=== PATIENT | male | born 1995 | race Caucasian/White ===

== ENCOUNTER 2019-11-22 21:37 | Emergency (ER) | payer BC, SELFPAY ==
--- NOTE | ~2019-11-22 | XR_ITS ---
EXAMINATION: XR chest 2V DATE: 11/22/2019 22:58 INDICATION: Cough and wheezing TECHNIQUE: PA and lateral views of the chest are obtained. COMPARISON: None available FINDINGS: The lungs are free of acute opacities. There is no pleural effusion or pneumothorax. The ca rdiomediastinal silhouette is normal. The visualized bones and soft tissues are unremarkable. IMPRESSION: 1. No acute cardiopulmonary abnormality. Reviewed, dictated and finalized at location A. [facility] SPECIAL[facility]
[2019-11-22 21:39] VITALS: BP 120/79; PULSE 97; RESP 16; TEMP 37; O2SAT 96
--- NOTE | 2019-11-22 22:05 | ED.URI ---
HPI - URI/Sore Throat General Chief Complaint: Upper Respiratory Infection Stated Complaint: wheezing/flu sx Time Seen by Provider: 11/22/19 21:51 Source: patient and RN notes reviewed Mode of arrival: other Limitations: no limitations History of Present Illness HPI Narrative: Pt is a 24 y/o male who presents to the ED with c/o wheezing for the past week. Pt denies getting the flu shot this year. Pt has a social hx of smoking cigarettes and Marijuana, but he denies using a vape. Pt also reports cough, congestion, a resolved fever, and a poor appetite, but denies otalgia and a sore throat. MD elicited complaint: other (wheezing) Onset (ago): week(s) (1) Consistency: constant Able to tolerate fluids by mouth: Yes Associated symptoms: fever (resolved), cough and other (congestion, poor appetite) Related Data Home Medications Medication Instructions Recorded Confirmed amoxicillin 11/22/19 Allergies Allergy/AdvReac Type Severity Reaction Status Date / Time No Known Allergies Allergy Unknown Verified 04/04/17 20:39 Review of Systems Review of Systems: Narrative: CONSTITUTIONAL: Reports a resolved fever and a poor appetite. ENT: Reports congestion. Denies otalgia and a sore throat. RESPIRATORY: Reports wheezing and a cough. All systems reviewed & are unremarkable except as noted in HPI and below PMFSH Past Medical History Medical History (Updated 11/22/19 @ 23:20 by Desire Norton MD) History of ETOH abuse Surgical History Surgical History (Updated 11/22/19 @ 22:12 by Perla Adkins) No history of previous surgery Social History Social History (Updated 11/22/19 @ 22:21 by Perla Adkins) Smoking status: Current every day smoker Tobacco type: cigarettes Substance use: current Substance use type: marijuana Gender identity (if verbalized by the patient): Male Exam Narrative: Exam Narrative: GENERAL: Well-appearing, well-nourished, and in no acute distress. HEAD: Normocephalic, atraumatic. EYES: PERRLA and EOMI. ENT: Nares clear, no rhinorrhea or epistaxis. Mucous membranes moist. NECK: Supple. CHEST: No respiratory distress. Focal crackles on right lower lobe. Expiratory wheezing throughout. HEART: Regular rate and rhythm. No murmur heard. Normal peripheral pulses. ABDOMEN: Soft, nontender, nondistended, normal active bowel sounds. EXTREMITIES: Normal range of motion. No edema. SKIN: Warm, dry, no rash. NEURO: No focal deficits. Alert and oriented X3. Course Course Emergency Course: Patient presented for evaluation of cough. No fever at this facility. Stable vital signs, no respiratory distress. Patient does have some wheezing for which we will give the patient a DuoNeb treatment. No findings of focal consolidation on chest x-ray. Findings most consistent with wheezing associated viral upper respiratory infection. Given wheezing associated component, will prescribe azithromycin to help with lung inflammation, also be discharged home with Symbicort, steroid taper. Vital Signs Vital signs: Vital Signs Temperature 37.0 C 11/22/19 21:39 Pulse Rate 97 11/22/19 21:39 Respiratory Rate 16 11/22/19 21:39 Blood Pressure 120/79 11/22/19 21:39 Pulse Oximetry 96 11/22/19 21:39 Temperature 37.0 C 11/22/19 21:39 Pulse Rate 70 11/22/19 22:44 Respiratory Rate 16 11/22/19 22:44 Blood Pressure 120/79 11/22/19 21:39 Pulse Oximetry 96 11/22/19 21:39 MDM - URI/Sore Throat Lab Data Result diagrams: 11/22/19 22:32 11/22/19 22:32 Labs: Lab Results 11/22/19 11/22/19 Range/Units 22:32 22:32 WBC 11.7 H (4.5-10.0) K/mm3 RBC 5.18 (4.6-6.20) M/mm3 Hgb 15.1 (14.0-18.0) g/dL Hct 44.9 (42.0-52.0) % MCV 86.7 (80-100) fl MCH 29.2 (26-34) pg MCHC 33.6 (32-36) g/dl RDW 12.8 (11.5-14.5) % Plt Count 287 (150-375) k/mm3 MPV 9.8 (7.4-10.4) fl Immature Gran % (Auto) 0.3 (0-0.5) % Neut % (Auto)
[2019-11-22] MEDS: ACETAMINOPHEN 500 MG TABLET 1000 MG PO (22:24)
[2019-11-22] MEDS: predniSONE 20 MG TABLET 60 MG PO (22:33)
[2019-11-22] MEDS: ALBUTEROL SULFATE NEB 2.5 MG/0.5 ML INH 5 MG INHALATION (22:38)
[2019-11-22 22:39] VITALS: PULSE 70; RESP 16
[2019-11-22] MEDS: IPRATROPIUM BR 0.02% INH SOLN 0.5 MG/2.5 ML VIAL INHALATION (22:39)
[2019-11-22 22:40] LABS: Basophils Absolute Auto 0.1 K/mm3 (0.0-0.1); Basophils Percent Auto 0.6 % (0.2-1.2); Eosinophils Absolute Auto 0.3 K/mm3 (0-0.3); Eosinophils Percent Auto 2.7 % (0-4.4); Hematocrit 44.9 % (42.0-52.0); Hemoglobin 15.1 g/dL (14.0-18.0); Immature Granulocyte Absolute 0.04 K/mm3 (0.00-0.031); Immature Granulocyte Percent A 0.3 % (0-0.5); Lymphocytes Absolute Auto 2.84 K/mm3 (0.9-3.2); Lymphocytes Percent Auto 24.2 % (18.3-44.2); Mean Corpuscular HGB Conc 33.6 g/dl (32-36); Mean Corpuscular Hemoglobin 29.2 pg (26-34); Mean Corpuscular Volume 86.7 fl (80-100); Mean Platelet Volume 9.8 fl (7.4-10.4); Monocytes Absolute Auto 0.8 K/mm3 (0.1-0.6); Monocytes Percent Auto 6.5 % (2.6-8.5); Neutrophils Absolute Auto 7.7 K/mm3 (1.3-6.7); Neutrophils Percent Auto 65.7 % (45.5-73.1); Platelet Count Result 287 k/mm3 (150-375); Red Blood Count 5.18 M/mm3 (4.6-6.20); Red Cell Distribution Width 12.8 % (11.5-14.5); White Blood Count 11.7 K/mm3 (4.5-10.0)
[2019-11-22 22:44] VITALS: PULSE 70; RESP 16
[2019-11-22 22:56] LABS: Blood Urea Nitrogen 15 mg/dL (9-20); Calcium 9.9 mg/dL (8.4-10.2); Carbon Dioxide 29 mmol/L (22-30); Chloride 98 mmol/L (98-107); Estimated Glomerular Filt Rate > 60; Glucose 106 mg/dL (75-110); Potassium 4.1 mmol/L (3.4-5.0); Sodium 141 mmol/L (137-145)
== END 2019-11-22 23:35 | disposition home or self-care (01) ==
PROVIDERS: Emergency Provider Emergency Medicine
DX: J06.9 Acute upper respiratory infection, unspecified (principal)
CPT/HCPCS: 36415; 71046; 80048; 85025; 87804; 94640; 99283; A9270; J7512

== ENCOUNTER 2021-07-11 10:14 | Emergency (ER) | payer BC, SELFPAY ==
[2021-07-11 10:15] VITALS: BP 125/76; PULSE 84; RESP 18; TEMP 36.4; O2SAT 99
--- NOTE | 2021-07-11 10:27 | ED.DENTAL ---
HPI - Dental/Oral General Chief complaint: Dental/Oral Stated complaint: Tooth Pain Time Seen by Provider: 07/11/21 10:28 Source: patient, family, RN notes reviewed and old records reviewed Mode of arrival: ambulatory Limitations: no limitations History of Present Illness HPI Narrative: 26-year-old male presents to [facility] with complaints of acute dental pain to left upper mouth for the past 2 days and he awoke today with left sided facial swelling. Patient states that he has dental appointment set up for July 16 with his dentist. Patient has noted swelling and redness to gum around # 15 tooth with noted dental caries. Patient denies any difficulty with swallowing or breathing no trismus noted.Patient states that he has had some nausea this morning, denies any vomiting or diarrhea or any fevers. Patient has had COVID vaccinations. MD Complaint: tooth pain Location: Tooth # (15) Onset (ago): day(s) (2) Related Data Allergies Allergy/AdvReac Type Severity Reaction Status Date / Time No Known Allergies Allergy Unknown Verified 07/11/21 10:18 Review of Systems Review of Systems: CONSTITUTIONAL: Denies fever, chills, or sweats. EYES: Denies visual changes, redness, or discharge. ENT: Denies rhinorrhea, congestion, sore throat, or otalgia.dental pain to left upper molar with left sided facial swelling CARDIOVASCULAR: Denies chest pain, palpitations, or edema. RESPIRATORY: Denies cough or dyspnea. GASTROINTESTINAL: Denies abdominal pain,reports some nausea, no vomiting, or diarrhea. GENITOURINARY: Denies dysuria or hematuria. SKIN: Denies rash or itching. MUSCULOSKELETAL: Denies back pain, joint pain, or myalgia. NEUROLOGIC: Denies headache, numbness, or weakness. PSYCHIATRIC: Denies anxiety or depression. All systems reviewed & are unremarkable except as noted in HPI and below PMFSH Past Medical History Medical History (Updated 07/11/21 @ 10:59 by Desire Jauregui NP) History of ETOH abuse Surgical History Surgical History (Updated 07/11/21 @ 10:59 by Desire Jauregui NP) Hx of appendectomy Family History Family History (Updated 07/11/21 @ 10:59 by Desire Jauregui NP) Other No significant family history Social History Social History (Updated 07/11/21 @ 11:00 by Desire Jauregui NP) Smoking packs per day: 0.5 Smoking cigarettes per day: 10.0 Years smoked: 9 Smoking pack-years: 4.50 Smoking status: Current every day smoker Tobacco type: cigarettes Alcohol intake: current Alcohol use details: social Substance use: former Substance use type: marijuana Living arrangements: with family Gender identity (if verbalized by the patient): Male Comments At time of signature, agree with nursing past medical, surgical, social and family history. There is no relevant family history pertinent to the presenting complaint Exam Narrative: GENERAL: Well-appearing, well-nourished, and in no acute distress. HEAD: Normocephalic, atraumatic. EYES: PERRLA and EOMI. ENT: Nares clear, no rhinorrhea or epistaxis. Mucous membranes moist.TM's normal with good light reflex, throat pink with no exudates or lesions or tonsil enlargement. left upper gum red and swollen around #15 tooth with noted caries with left sided facial swelling present,No Yoseph angina noted. NECK: Supple.no lymphadenopathy CHEST: Clear to auscultation. No respiratory distress.SAO2 99% on room air HEART: Regular rate and rhythm. No murmur heard. Normal peripheral pulses. ABDOMEN: Soft, nontender, nondistended, normal active bowel sounds. EXTREMITIES: Normal range of motion. No edema. SKIN: Warm, dry, no rash. NEURO: No focal deficits. Alert and oriented x3. Course Vital Signs Vital signs: Vital Signs Temperature 36.4 C L 07/11/21 10:15 Pulse Rate 84 07/11/21 10:15 Respiratory Rate 18 07/11/21 10:15 Blood Pressure 125/76 07/11/21 10:15 Pulse Oximetry 99 07/11/21 10:15 Temperature 36.4 C L
== END 2021-07-11 10:46 | disposition home or self-care (01) ==
PROVIDERS: Emergency Provider Registered Nurse
DX: K04.7 Periapical abscess without sinus (principal); F17.210 Nicotine dependence, cigarettes, uncomplicated
CPT/HCPCS: 99213; G0463

== ENCOUNTER 2021-08-17 09:08 | Emergency (ER) | payer BC, SELFPAY ==
--- NOTE | ~2021-08-17 | XR_ITS ---
EXAMINATION: XR thoracic spine 3V DATE: 08/17/2021 09:41 INDICATION: Upper thoracic back pain TECHNIQUE: One AP, lateral and lateral swimmer's views of the thoracic spine were obtained. COMPARISON: None. FINDINGS: Alignment is normal. Chronic minimal likely physiologic anterior wedging at T11 and T12. A few small Schmorl's nodes in the lower thoracic spine. Mild disc height loss at T7-T8 through T9-T10 and at T11 -T12. No acute fractures identified. Visualized portions of the lungs are clear with no evident pleur al effusion or pneumothorax. Cardiomediastinal silhouette is normal. IMPRESSION: 1. Mild lower thoracic spondylosis. No evident acute osseous abnormality. Reviewed, dictated and finalized at location A.
[2021-08-17 09:16] VITALS: BP 132/90; PULSE 109; RESP 18; TEMP 36.6; O2SAT 97
[2021-08-17] MEDS: KETOROLAC (*BKC) 60 MG/2 ML VIAL IM (09:53)
--- NOTE | 2021-08-17 11:42 | ED.BACK ---
HPI - Back Pain/Injury General Chief Complaint: Back Pain/Injury Stated Complaint: back pain Time Seen by Provider: 08/17/21 09:12 History of Present Illness HPI Narrative: Patient is a 26-year-old male who presents ER with back pain. Right side between the scapula and thoracic spine. Worse with range of motion of the shoulder. 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 No known trauma. No upper or lower extremity numbness or tingling. No difficulty with urination/defecation. No fevers or chills or sweats. No IV drug abuse. Related Data Allergies Allergy/AdvReac Type Severity Reaction Status Date / Time No Known Allergies Allergy Unknown Verified 08/17/21 09:19 Review of Systems Review of Systems: All systems reviewed & are unremarkable except as noted in HPI and below Constitutional: Constitutional: Denies chills, Denies fever(s) and Denies weakness Cardiovascular: Cardiovascular: Denies chest pain, Denies rapid heart rate and Denies radiating jaw, neck or arm pain Respiratory: Respiratory: Denies cough and Denies dyspnea Gastrointestinal: Gastrointestinal: Denies nausea and Denies vomiting Musculoskeletal: Musculoskeletal: Reports back pain and Denies muscle cramps Integumentary/Breasts: Skin/Breast: Denies pruritus and Denies erythema Neurologic: Denies focal weakness and Denies numbness PMFSH Past Medical History Medical History (Updated 08/17/21 @ 12:12 by Darin Wilde MD) History of ETOH abuse Surgical History Surgical History (Updated 07/11/21 @ 10:59 by Desire Jauregui NP) Hx of appendectomy Family History Family History (Updated 07/11/21 @ 10:59 by Desire Jauregui NP) Other No significant family history Social History Social History (Updated 07/11/21 @ 11:00 by Desire Jauregui NP) Smoking packs per day: 0.5 Smoking cigarettes per day: 10.0 Years smoked: 9 Smoking pack-years: 4.50 Smoking status: Current every day smoker Tobacco type: cigarettes Alcohol intake: current Alcohol use details: social Substance use: former Substance use type: marijuana Gender identity (if verbalized by the patient): Male Exam Narrative: GENERAL: Well-appearing, well-nourished, and in no acute distress. HEAD: Normocephalic, atraumatic. CHEST: Clear to auscultation. No respiratory distress. HEART: Regular rate and rhythm. Normal peripheral pulses. Back: No midline tenderness thoracic spine or L-spine however there is tenderness right of midline at the level of T2. EXTREMITIES: Normal range of motion. No edema. SKIN: Warm, dry, no rash. NEURO: Alert and oriented x3. PSYCH: Normal mood and affect. Course Course Emergency Course: Symptoms markedly improved with Toradol. Requesting work note. Discharge home. Vital Signs Vital signs: Vital Signs Temperature 97.8 F 08/17/21 09:16 Pulse Rate 109 H 08/17/21 09:16 Respiratory Rate 18 08/17/21 09:16 Blood Pressure 132/90 08/17/21 09:16 Pulse Oximetry 97 08/17/21 09:16 Temperature 97.8 F 08/17/21 09:16 Pulse Rate 74 08/17/21 11:45 Respiratory Rate 18 08/17/21 11:45 Blood Pressure 94/54 L 08/17/21 11:45 Pulse Oximetry 98 08/17/21 11:45 MDM - Back Pain/Injury Imaging Data Radiologist's impression: ITS Impressions Thoracic Spine X-Ray 08/17/21 09:47 IMPRESSION: 1. Mild lower thoracic spondylosis. No evident acute osseous abnormality. Discharge Plan Discharge Clinical Impression: Strain of thoracic region Patient Disposition: Home, Self-Care Condition: Stable Instructions: Thoracic Back Strain (ED) Additional Instructions: Return to the ER if you have increased pain in your back, you develop lower extremity weakness/numbness/paralysis, you have numbness or tingling in your private parts, or you are unable to control your ability to urinate/stool. Prescriptions: New naproxen 375 mg tablet 375 mg PO BID Qty: 14 RF: 0 No Action
[2021-08-17 11:45] VITALS: BP 94/54; PULSE 74; RESP 18; O2SAT 98
[2021-08-17 12:29] VITALS: BP 99/66; PULSE 57; RESP 18; TEMP 36.5; O2SAT 98
== END 2021-08-17 12:32 | disposition home or self-care (01) ==
PROVIDERS: Emergency Provider Emergency Medicine
DX: S29.012A Strain of muscle and tendon of back wall of thorax, initial encounter (principal); F17.210 Nicotine dependence, cigarettes, uncomplicated; X50.0XXA Overexertion from strenuous movement or load, initial encounter
CPT/HCPCS: 72072; 96372; 99283; J1885

== ENCOUNTER 2021-09-03 08:07 | Emergency (ER) | payer BC, SELFPAY ==
[2021-09-03 08:11] VITALS: BP 123/105; PULSE 116; RESP 18; O2SAT 99
--- NOTE | 2021-09-03 08:41 | ED.EXTPRO ---
HPI - Extremity Problem General Chief complaint: Extremity Problem,Nontraumatic Stated complaint: numbness in right hand Time Seen by Provider: 09/03/21 08:17 Source: patient Mode of arrival: ambulatory Limitations: no limitations History of Present Illness HPI Narrative: Patient is a 26-year-old male complaining of right risk and hand numbness when he wakes up in the morning and usually resolves on its own after 1 or 2 hours, started approximately 3 months ago. Patient was told that he could have carpal tunnel. 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 Patient also requesting a work excuse today. Denies any injury to his upper extremity. Related Data Allergies Allergy/AdvReac Type Severity Reaction Status Date / Time No Known Allergies Allergy Unknown Verified 08/17/21 09:19 Review of Systems Review of Systems: All systems reviewed & are unremarkable except as noted in HPI and below Constitutional: Constitutional: Reports as per HPI PMFSH Past Medical History Medical History History of ETOH abuse Surgical History Surgical History Hx of appendectomy Family History Family History Other No significant family history Social History Social History Smoking packs per day: 0.5 Smoking cigarettes per day: 10.0 Years smoked: 9 Smoking pack-years: 4.50 Smoking status: Current every day smoker Tobacco type: cigarettes Alcohol intake: current Alcohol use details: social Substance use: former Substance use type: marijuana Gender identity (if verbalized by the patient): Male Exam Const: General: no acute distress and alert Orientation/consciousness: patient oriented x3 HENMT: Head: normal to inspection Eyes: Conjunctivae: conjunctivae normal Neck: Neck: normal visual inspection Resp: Effort & Inspection: normal respiratory effort Skin: General skin exam: normal color Rashes: no rashes Neuro: General: patient oriented x3 and moves all extremities Extrem: General: normal to inspection and no clubbing, cyanosis or edema Other: No deformity or swelling. No redness. Full range of motion of his right wrist and hand, no pain. No pain on palpation. Neurovascular is intact Course Vital Signs Vital signs: Vital Signs Pulse Rate 116 H 09/03/21 08:11 Respiratory Rate 18 09/03/21 08:11 Blood Pressure 123/105 H 09/03/21 08:11 Pulse Oximetry 99 09/03/21 08:11 Pulse Rate 116 H 09/03/21 08:11 Respiratory Rate 18 09/03/21 08:11 Blood Pressure 123/105 H 09/03/21 08:11 Pulse Oximetry 99 09/03/21 08:11 Discharge Plan Discharge Clinical Impression: Carpal tunnel syndrome of right wrist Patient Disposition: Home, Self-Care Condition: Stable Instructions: Wrist Sprain (ED) Prescriptions: New methylprednisolone [Medrol (Baldemar)] 4 mg tablets,dose pack See Rx Instructions .ROUTE .COMPLEX Qty: 21 RF: 0 No Action penicillin V potassium 500 mg tablet 500 mg PO Q12H 10 Days Qty: 20 RF: 0 lidocaine HCl [Lidocaine Viscous] 2 % solution 1 applic mucous membrane QID PRN (Reason: pain) Qty: 100 RF: 0 naproxen 375 mg tablet 375 mg PO BID Qty: 14 RF: 0 Follow-up/Referrals: PHYSICIAN,FOOD SERVICE COUNTER CLERK [Primary Care Provider] - 09/04/21 Time of Disposition: 08:46
== END 2021-09-03 09:38 | disposition home or self-care (01) ==
PROVIDERS: Emergency Provider Emergency Medicine
DX: G56.01 Carpal tunnel syndrome, right upper limb (principal); F17.210 Nicotine dependence, cigarettes, uncomplicated
CPT/HCPCS: 99283

== ENCOUNTER 2021-10-09 08:04 | Emergency (ER) | payer BC, SELFPAY ==
[2021-10-09 08:18] VITALS: BP 152/76; PULSE 83; RESP 14; TEMP 36.6; O2SAT 99
[2021-10-09 09:43] VITALS: BP 137/92; PULSE 74; RESP 18; TEMP 36.8; O2SAT 100
[2021-10-09 09:45] VITALS: RESP 18
--- NOTE | 2021-10-09 10:03 | ED.GENADULT ---
HPI - General Adult General Chief complaint: Unspecified Stated complaint: coughing after exposure to cleaning products Time Seen by Provider: 10/09/21 09:50 Source: patient Mode of arrival: ambulatory Limitations: no limitations History of Present Illness HPI narrative: Patient is 26 years old white male came to the emergency room because of vomiting and chest tightness started the night before last after cleaning his house with Clorox. Patient reports that he been vomiting intermittently yesterday and he could not go back to work, woke up this morning and still nauseated but feeling much better compared to yesterday and would like to have the next few off work yesterday and today. Patient declined any blood work-up or IV fluid at this time. Patient is fully vaccinated for COVID-19. Patient patient girlfriend who was cleaning with him had similar symptoms and got better in few hours. Currently patient denying any fever, chills, vomiting, chest pain, shortness of breath or headache Related Data Allergies Allergy/AdvReac Type Severity Reaction Status Date / Time No Known Allergies Allergy Unknown Verified 10/09/21 09:49 Review of Systems Review of Systems: CONSTITUTIONAL: Denies fever, chills, or sweats. EYES: Denies visual changes, redness, or discharge. ENT: Denies rhinorrhea, congestion, sore throat, or otalgia. CARDIOVASCULAR: Denies chest pain, palpitations, or edema. RESPIRATORY: Denies cough or dyspnea. GASTROINTESTINAL: Denies abdominal pain, nausea, vomiting, or diarrhea. GENITOURINARY: Denies dysuria or hematuria. SKIN: Denies rash or itching. MUSCULOSKELETAL: Denies back pain, joint pain, or myalgia. NEUROLOGIC: Denies headache, numbness, or weakness. PSYCHIATRIC: Denies anxiety or depression. [facility] Past Medical History Medical History History of ETOH abuse Surgical History Surgical History Hx of appendectomy Family History Family History Other No significant family history Social History Social History Smoking packs per day: 0.5 Smoking cigarettes per day: 10.0 Years smoked: 9 Smoking pack-years: 4.50 Smoking status: Current every day smoker Tobacco type: cigarettes Alcohol intake: current Alcohol use details: social Substance use: former Substance use type: marijuana Gender identity (if verbalized by the patient): Male Exam Narrative: General appearance: Well-developed, well-nourished Skin: Normal color Head: Normocephalic, nontraumatic Eyes: Clear conjunctiva ENT: Oropharynx normal, ears normal, nose normal Neck: Supple, nontender Chest and respiratory: Airway patent, no respiratory distress, no accessory muscle use Heart: Regular rate/rhythm Abdomen: Soft, nontender, no organomegaly, quiet bowel sounds Vascular: Normal peripheral pulses, normal capillary refill. 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
== END 2021-10-09 10:30 | disposition home or self-care (01) ==
PROVIDERS: Emergency Provider Emergency Medicine
DX: Z77.098 Contact with and (suspected) exposure to other hazardous, chiefly nonmedicinal, chemicals (principal); F17.210 Nicotine dependence, cigarettes, uncomplicated; Z90.89 Acquired absence of other organs
CPT/HCPCS: 99283

== ENCOUNTER 2022-03-22 21:21 | Emergency (ER) | payer BC, SELFPAY ==
[2022-03-22 21:24] VITALS: BP 125/80; PULSE 58; RESP 20; TEMP 36.4; O2SAT 99
--- NOTE | 2022-03-22 21:51 | ED.GENADULT ---
HPI - General Adult General Chief complaint: Unspecified Stated complaint: runny nose, diarrhea, vomit, aches Time Seen by Provider: 03/22/22 21:51 History of Present Illness HPI narrative: 26-year-old male presents to the emergency room requesting a doctor's note. Patient states yesterday he had a runny nose, postnasal drip, sinus congestion, and posttussive emesis x2. Currently, patient denies shortness of breath, difficulty breathing, or chest pain. Patient denies fever patient states that he feels better today and is just wanting physician note so he can go back to work. No complaints at this time. Related Data Home Medications Medication Instructions Recorded Confirmed No Home Medications 03/22/22 03/22/22 Allergies Allergy/AdvReac Type Severity Reaction Status Date / Time No Known Allergies Allergy Unknown Verified 03/22/22 21:27 Review of Systems Review of Systems: CONSTITUTIONAL: Denies fever, chills, or sweats. EYES: Denies visual changes, redness, or discharge. ENT: Reports rhinorrhea, congestion CARDIOVASCULAR: Denies chest pain, palpitations, or edema. RESPIRATORY: Reports cough GASTROINTESTINAL: Denies abdominal pain, nausea, vomiting, or diarrhea. GENITOURINARY: Denies dysuria or hematuria. SKIN: Denies rash or itching. MUSCULOSKELETAL: Denies back pain, joint pain, or myalgia. NEUROLOGIC: Denies headache, numbness, dizziness, or weakness. PSYCHIATRIC: Denies anxiety or depression. [facility] Past Medical History Medical History History of ETOH abuse Surgical History Surgical History Hx of appendectomy Family History Family History Other No significant family history Social History Social History Smoking packs per day: 0.5 Smoking cigarettes per day: 10.0 Years smoked: 9 Smoking pack-years: 4.50 Smoking status: Current every day smoker Tobacco type: cigarettes Alcohol intake: current Alcohol use details: social Substance use: former Substance use type: marijuana Gender identity (if verbalized by the patient): Male Exam Narrative: GENERAL: Well-appearing, well-nourished, and in no acute distress. HEAD: Normocephalic, atraumatic. EYES: PERRLA and EOMI. ENT: Nares clear, no rhinorrhea or epistaxis. Mucous membranes moist. Oropharynx without tonsillar hypertrophy exudate or other lesions. Bilateral TMs pearly [place]on nonbulging NECK: Supple. No adenopathy or masses. CHEST: Clear to auscultation. No respiratory distress. No wheezes rales or rhonchi HEART: Regular rate and rhythm. No murmur heard. Normal peripheral pulses. ABDOMEN: Soft, nontender, nondistended, normal active bowel sounds. EXTREMITIES: Normal range of motion. No edema. SKIN: Warm, dry, no rash. NEURO: No focal deficits. Alert and oriented x3. PSYCH: Normal mood and affect. Course Vital Signs Vital signs: Vital Signs Temperature 36.4 C 03/22/22 21:24 Pulse Rate 58 L 03/22/22 21:24 Respiratory Rate 20 03/22/22 21:24 Blood Pressure 125/80 03/22/22 21:24 Pulse Oximetry 99 03/22/22 21:24 Oxygen Delivery Room Air 03/22/22 21:24 Temperature 36.4 C 03/22/22 21:24 Pulse Rate 58 L 03/22/22 21:24 Respiratory Rate 20 03/22/22 21:24 Blood Pressure 125/80 03/22/22 21:24 Pulse Oximetry 99 03/22/22 21:24 Oxygen Delivery Room Air 03/22/22 21:24 Medical Decision Making Vital Signs Vital Signs: Vital Signs Temperature 36.4 C 03/22/22 21:24 Pulse Rate 58 L 03/22/22 21:24 Respiratory Rate 20 03/22/22 21:24 Blood Pressure 125/80 03/22/22 21:24 Pulse Oximetry 99 03/22/22 21:24 Oxygen Delivery Room Air 03/22/22 21:24 Temperature 36.4 C 03/22/22 21:24 Pulse Rate 58 L 03/22/22 21:24 Respiratory Rate 20 03/22/22
== END 2022-03-22 22:13 | disposition home or self-care (01) ==
PROVIDERS: Emergency Provider Nurse Practitioner Family
DX: R05.9 Cough, unspecified (principal); F17.210 Nicotine dependence, cigarettes, uncomplicated
CPT/HCPCS: 99281

== ENCOUNTER 2022-10-08 20:56 | Emergency (ER) | payer SELFPAY ==
--- NOTE | ~2022-10-08 | XR_ITS ---
EXAMINATION: XR chest 2V Exam Date/Time: 10/08/2022 22:38 WAY INSPECTOR HISTORY: productive cough, chest congestion x 2days. no cardiac hx Comparison: 11/22/2019. RESULT: Lines, tubes, and devices: None. Lungs and pleura: Clear. Cardiomediastinal silhouette: Stable. Other: No acute osseous or upper abdominal finding. IMPRESSION: No acute cardiopulmonary process. Reviewed, dictated and finalized at location K. INSPECTOR
[2022-10-08 20:57] VITALS: BP 114/77; PULSE 68; RESP 20; TEMP 36.5; O2SAT 98
[2022-10-08 21:41] LABS: Strep Group A RT-PCR NOT DETECTED (Negative)
[2022-10-08 22:18] LABS: Influenza A QL RT-PCR Negative (Negative); Influenza B QL RT-PCR Negative (Negative); SARS-CoV-2 RNA PCR Negative
--- NOTE | 2022-10-08 22:48 | PC.NURSE ---
Pt to XRAY via w/c at this time.
--- NOTE | 2022-10-08 22:58 | ED.URI ---
HPI - URI/Sore Throat General Chief Complaint: Upper Respiratory Infection Stated Complaint: sore throat, cough Time Seen by Provider: 10/08/22 21:36 Source: patient Mode of arrival: ambulatory Limitations: no limitations History of Present Illness HPI Narrative: This is a 27-year-old male that presents emergency department for cold symptoms ongoing over the last 2 days. Reports fever, cough, congestion and sore throat. Denies shortness of breath. Related Data Home Medications Medication Instructions Recorded Confirmed No Home Medications 03/22/22 03/22/22 Allergies Allergy/AdvReac Type Severity Reaction Status Date / Time No Known Allergies Allergy Unknown Verified 10/08/22 21:32 Review of Systems Review of Systems: CONSTITUTIONAL: Reports fever EYES: Denies redness, or discharge. ENT: Reports rhinorrhea, congestion, sore throat RESPIRATORY: Reports cough. Denies dyspnea. All systems reviewed & are unremarkable except as noted in HPI and below PMFSH Past Medical History Medical History History of ETOH abuse Surgical History Surgical History Hx of appendectomy Family History Family History Other No significant family history Social History Social History Smoking packs per day: 0.5 Smoking cigarettes per day: 10.0 Years smoked: 9 Smoking pack-years: 4.50 Smoking status: Current every day smoker Tobacco type: cigarettes Alcohol intake: current Alcohol use details: social Substance use: former Substance use type: marijuana Gender identity (if verbalized by the patient): Male Exam Narrative: GENERAL: Well-appearing, well-nourished, and in no acute distress. HEAD: Normocephalic, atraumatic. EYES: EOMI. ENT: Nares clear, no rhinorrhea or epistaxis. Mucous membranes moist. Oropharynx without tonsillar hypertrophy exudate or other lesions. Bilateral TMs pearly [place]on non-bulging NECK: Supple. No adenopathy or masses. CHEST: Clear to auscultation. No respiratory distress. No wheezes rales or rhonchi HEART: Regular rate and rhythm. No murmur heard. Normal peripheral pulses. EXTREMITIES: Normal range of motion. No edema. SKIN: Warm, dry, no rash. NEURO: No focal deficits. Alert and oriented x3. PSYCH: Normal mood and affect Course Vital Signs Vital signs: Vital Signs Temperature 97.7 F 10/08/22 20:57 Pulse Rate 68 10/08/22 20:57 Respiratory Rate 20 10/08/22 20:57 Blood Pressure 114/77 10/08/22 20:57 Pulse Oximetry 98 10/08/22 20:57 Oxygen Delivery Room Air 10/08/22 20:57 Temperature 97.7 F 10/08/22 20:57 Pulse Rate 68 10/08/22 20:57 Respiratory Rate 20 10/08/22 20:57 Blood Pressure 114/77 10/08/22 20:57 Pulse Oximetry 98 10/08/22 20:57 Oxygen Delivery Room Air 10/08/22 20:57 MDM - URI/Sore Throat MDM Narrative Medical decision making narrative: Patient presents emergency department for cold symptoms ongoing over the last 2 days. Patient is afebrile and nontoxic-appearing. Lungs are clear on exam. Oxygen saturation is normal on room air. Influenza, COVID and strep screens are negative. Chest x-ray without acute cardiopulmonary abnormality. Patient was updated on case findings. Instructed on continued care of viral infection. He is to follow-up with primary care provider. He was given warnings to return to the ER Lab Data Attestation: I reviewed the patient's lab results. Labs: Lab Results 10/08/22 10/08/22 Range/Units 21:04 21:04 Influenza A (RT-PCR) Negative (Negative) Influenza B (RT-PCR) Negative (Negative) SARS-CoV-2 RNA (RT-PCR) Negative Group A Strep (PCR) Not detected (Negative) Imaging Data Radiologist's impression: ITS Impressions Chest X-Ray 09/13
[2022-10-08 23:15] VITALS: BP 110/74; PULSE 66; RESP 18; TEMP 36.7; O2SAT 99
== END 2022-10-08 23:17 | disposition home or self-care (01) ==
PROVIDERS: Emergency Medicine; Emergency Provider Physician Assistant
DX: J06.9 Acute upper respiratory infection, unspecified (principal); Z20.822 Contact with and (suspected) exposure to COVID-19; F17.210 Nicotine dependence, cigarettes, uncomplicated
CPT/HCPCS: 71046; 87636; 87651; 99283

== ENCOUNTER 2023-02-21 10:16 | Emergency (ER) | payer MEDICAID, SELFPAY ==
[2023-02-21 11:12] VITALS: BP 108/75; PULSE 57; RESP 14; TEMP 36.4; O2SAT 98
--- NOTE | 2023-02-21 12:04 | ED.DENTAL ---
HPI - Dental/Oral General Chief complaint: Dental/Oral Stated complaint: dental pain Time Seen by Provider: 02/21/23 11:18 Source: patient Mode of arrival: ambulatory Limitations: no limitations History of Present Illness HPI Narrative: This is a 19-year-old male who presents to the ED with chief complaint of with right lower tooth pain x3 days. States he has a dentist appointment next week. Patient states he is clean from opioids for the past 2 days and would like to avoid these medications. He denies fevers, chills, nausea, vomiting, diarrhea. Related Data Allergies Allergy/AdvReac Type Severity Reaction Status Date / Time No Known Allergies Allergy Unknown Verified 02/21/23 11:21 Review of Systems Review of Systems: CONSTITUTIONAL: Denies fever, chills, or sweats. ENT: See HPI SKIN: Denies rash or itching. NEUROLOGIC: Denies headache, numbness, dizziness, or weakness. PMFSH Past Medical History Medical History History of ETOH abuse Surgical History Surgical History Hx of appendectomy Family History Family History Other No significant family history Social History Social History Smoking packs per day: 0.5 Smoking cigarettes per day: 10.0 Years smoked: 9 Smoking pack-years: 4.50 Smoking status: Current every day smoker Tobacco type: cigarettes Alcohol intake: current Alcohol use details: social Substance use: former Substance use type: marijuana Living arrangements: with family Gender identity (if verbalized by the patient): Male Exam Narrative: GENERAL: Well-appearing, well-nourished, and in no acute distress. ENT: Nares clear, no rhinorrhea or epistaxis. Mucous membranes moist. Oropharynx without tonsillar hypertrophy exudate or other lesions. Poor dentition throughout. There is a cracked tooth to the right lower molar. Multiple caries noted. No visible abscess, however there is some swelling to the gum next to the cracked tooth. NECK: Supple. No adenopathy or masses. SKIN: Warm, dry, no rash. Course Vital Signs Vital signs: Vital Signs Temperature 97.5 F L 02/21/23 11:12 Pulse Rate 57 L 02/21/23 11:12 Respiratory Rate 14 02/21/23 11:12 Blood Pressure 108/75 02/21/23 11:12 Pulse Oximetry 98 02/21/23 11:12 Oxygen Delivery Room Air 02/21/23 11:12 Temperature 97.5 F L 02/21/23 11:12 Pulse Rate 99 02/21/23 12:29 Respiratory Rate 16 02/21/23 12:29 Blood Pressure 108/75 02/21/23 11:12 Pulse Oximetry 100 02/21/23 12:29 Oxygen Delivery Room Air 02/21/23 11:12 MDM - Dental/Oral MDM Narrative Medical decision making narrative: This is a 27-year-old male who presents to the ED with chief complaint of right lower dental pain onset x3 days. Triage note mentions that he is withdrawing from opioids. Patient states that he is not having any of those symptoms. He is clean for 2 days from opioids does not want any narcotic medications. Vitals are stable. Afebrile. Exam shows poor dentition throughout and a cracked right lower molar. Otherwise exam is benign. No systemic signs. Patient will be given Toradol here in the ED. He will be discharged in stable condition. Prescription for antibiotics and naproxen given. Patient is understanding that he needs to follow-up with his dentist. Agreeable to plan for discharge. Discharge Plan Discharge Clinical Impression: Dental caries, Broken or cracked tooth, nontraumatic Patient Disposition: Home, Self-Care Condition: Stable Instructions: Antibiotic Form Additional Instructions: Please continue to take naproxen for pain and antibiotics to prevent infection. Please make sure that you follow-up with your dentist as this is the only way in the 2
[2023-02-21] MEDS: KETOROLAC 30 MG/ML VIAL (*BKC) IM (12:27)
[2023-02-21 12:29] VITALS: PULSE 99; RESP 16; O2SAT 100
== END 2023-02-21 12:29 | disposition home or self-care (01) ==
PROVIDERS: Emergency Provider Physician Assistant
DX: K02.9 Dental caries, unspecified (principal); K03.81 Cracked tooth; F17.210 Nicotine dependence, cigarettes, uncomplicated
CPT/HCPCS: 96372; 99283; J1885

== ENCOUNTER 2023-06-10 21:18 | Emergency (ER) | payer BC, SELFPAY ==
[2023-06-10 21:30] VITALS: BP 115/80; PULSE 60; RESP 14; TEMP 36.3; O2SAT 100
--- NOTE | 2023-06-11 01:53 | PC.NURSE ---
Patient was called out for twice for vitals. Once at 0112 and again at 0152 No answer either time.
== END 2023-06-11 01:53 | disposition left against medical advice (07) ==
DX: R05.9 Cough, unspecified (principal)
CPT/HCPCS: 99199

== ENCOUNTER 2023-06-26 19:33 | Emergency (ER) | payer BC, SELFPAY ==
--- NOTE | 2023-06-26 21:34 | PC.NURSE ---
Pt called at 2052 for triage with no answer, called again at 2116, no answer
== END 2023-06-26 20:53 | disposition left against medical advice (07) ==
LOC: ANHED 21:56
DX: Z53.21 Procedure and treatment not carried out due to patient leaving prior to being seen by health care provider (principal)
CPT/HCPCS: 99199

== ENCOUNTER 2023-06-27 12:58 | Emergency (ER) | payer BC, SELFPAY ==
[2023-06-27 13:08] VITALS: BP 91/61; PULSE 91; RESP 18; TEMP 36.2; O2SAT 99
--- NOTE | 2023-06-27 13:10 | ED.BURNSMOKE ---
HPI - Burn/Smoke Inhalation General Chief complaint: Extremity Injury, Upper Stated complaint: Injury Rt Palm Time Seen by Provider: 06/27/23 13:10 Source: patient Mode of arrival: ambulatory Limitations: no limitations History of Present Illness HPI Narrative: 28-year-old male presents with burn to right hand. Reports that he burned his right palm on welding equipment 4 days ago. Patient reports pain and pressure to winkler started last night. Noticed redness this morning. Concerned that wound needs to be drained. Afebrile. Range of motion to right hand and fingers intact, distal neurovascular intact. All systems reviewed and negative except as noted above. Related Data Allergies Allergy/AdvReac Type Severity Reaction Status Date / Time No Known Allergies Allergy Unknown Verified 02/21/23 11:21 Review of Systems Review of Systems: CONSTITUTIONAL: Denies fever, chills, or sweats. EYES: Denies visual changes, redness, or discharge. ENT: Denies rhinorrhea, congestion, sore throat, or otalgia. CARDIOVASCULAR: Denies chest pain, palpitations, or edema. RESPIRATORY: Denies cough or dyspnea. GASTROINTESTINAL: Denies abdominal pain, nausea, vomiting, or diarrhea. GENITOURINARY: Denies dysuria or hematuria. SKIN: Denies rash or itching. Reports burn to palm of right hand. MUSCULOSKELETAL: Denies back pain, joint pain, or myalgia. NEUROLOGIC: Denies headache, numbness, or weakness. PSYCHIATRIC: Denies anxiety or depression. All other systems reviewed are negative, except as documented in HPI. [facility] Past Medical History Medical History History of ETOH abuse Surgical History Surgical History Hx of appendectomy Family History Family History Other No significant family history Social History Social History Smoking packs per day: 0.5 Smoking cigarettes per day: 10.0 Years smoked: 9 Smoking pack-years: 4.50 Smoking status: Current every day smoker Tobacco type: cigarettes Alcohol intake: current Alcohol use details: social Substance use: former Substance use type: marijuana Living arrangements: with family Gender identity (if verbalized by the patient): Male Comments At time of signature, agree with nursing past medical, surgical, social and family history. There is no relevant family history pertinent to the presenting complaint. Exam Narrative: GENERAL: This is a well-nourished, well-developed patient, in no apparent distress. HEAD: normocephalic, atraumatic. EYES: PERRL. Sclera clear/white. Vision is grossly intact. EARS: External ears normal NOSE: External nose normal NECK: Neck supple, non-tender without lymphadenopathy, masses or thyromegaly. CARDIOVASCULAR: Regular rate and rhythm without murmurs, gallops, or rubs. RESPIRATORY: Clear to auscultation. Breath sounds equal bilaterally. No wheezes, rales, or rhonchi. SKIN: warm, Dry, intact with no suspicious lesions or rash, good texture and turgor. Burn to palm of right hand approximately 2 cm diameter. Blistered with discolored fluctuance under skin. Surrounding erythema. Tender on palpation. NEURO: awake, alert, and oriented to person, place and time. There were no obvious focal neurologic abnormalities. EXTREMITIES: No joint tenderness, effusion, or edema noted. Course Course Level of Care: Express Care Visit Vital Signs Vital signs: Vital Signs Temperature 36.2 C L 06/27/23 13:08 Pulse Rate 91 06/27/23 13:08 Respiratory Rate 18 06/27/23 13:08 Blood Pressure 91/61 L 06/27/23 13:08 Pulse Oximetry 99 06/27/23 13:08 Oxygen Delivery Room Air 06/27/23 13:08 Temperature 36.2 C L 06/27/23 13:08 Pulse Rate 91 06/27/23 13:08 Respiratory Rate 18 06/27/23 13:08
[2023-06-27] MEDS: TETANUS,DIPHTHERIA,AC PERTUSSIS ADULT (0.5 ML) BOOSTRIX IM (13:27)
== END 2023-06-27 13:47 | disposition home or self-care (01) ==
PROVIDERS: Emergency Provider Nurse Practitioner Family
DX: T23.251A Burn of second degree of right palm, initial encounter (principal); X08.8XXA Exposure to other specified smoke, fire and flames, initial encounter; Z23 Encounter for immunization; F17.210 Nicotine dependence, cigarettes, uncomplicated
CPT/HCPCS: 10160; 87070; 87075; 87147; 87181; 87186; 87205; 90471; 90715; 99213; G0463

== ENCOUNTER 2023-09-08 18:34 | Emergency (ER) | payer BC, SELFPAY ==
[2023-09-08 18:45] VITALS: BP 133/97; PULSE 108; RESP 18; TEMP 37.3; O2SAT 96
--- NOTE | 2023-09-08 18:54 | ED.WOUNDLAC ---
HPI - Wound/Laceration General Chief Complaint: Wound/Laceration Stated Complaint: Cut Finger Rt Hand Time Seen by Provider: 09/08/23 18:41 Source: patient and RN notes reviewed Mode of arrival: ambulatory Limitations: no limitations History of Present Illness HPI narrative: Patient presents today with a laceration to his right 4th finger that was sustained just prior to arrival on a Brillo Pad. Is currently pain-free. Denies numbness or tingling. He is up-to-date on his tetanus vaccine. Related Data Home Medications Medication Instructions Recorded Confirmed No Home Medications 09/08/23 09/08/23 Allergies Allergy/AdvReac Type Severity Reaction Status Date / Time No Known Allergies Allergy Unknown Verified 09/08/23 18:48 Review of Systems Review of Systems: CONSTITUTIONAL: Denies body aches, fever, chills, or sweats. EYES: Denies visual changes, redness, or discharge. ENT: Denies rhinorrhea, congestion, sore throat, or otalgia. CARDIOVASCULAR: Denies chest pain, palpitations, or edema. RESPIRATORY: Denies cough or dyspnea. GASTROINTESTINAL: Denies abdominal pain, nausea, vomiting, or diarrhea. GENITOURINARY: Denies dysuria or hematuria. SKIN: + finger laceration MUSCULOSKELETAL: Denies back pain, joint pain, or myalgia. NEUROLOGIC: Denies headache, numbness, tingling, or weakness. PSYCH: Denies depression or anxiety. [facility] Past Medical History Medical History History of ETOH abuse Surgical History Surgical History Hx of appendectomy Family History Family History Other No significant family history Social History Social History Smoking packs per day: 0.5 Smoking cigarettes per day: 10.0 Years smoked: 9 Smoking pack-years: 4.50 Smoking status: Current every day smoker Tobacco type: cigarettes Alcohol intake: current Alcohol use details: social Substance use: former Substance use type: marijuana Living arrangements: with family Gender identity (if verbalized by the patient): Male Comments At time of signature, I have reviewed and agree with nursing past medical, surgical, social and family history unless otherwise noted. Please see nursing chart for further information. There is no relevant family history pertinent to the presenting complaint Exam Narrative: GENERAL: Well-appearing, well-nourished, and in no acute distress. HEAD: Normocephalic, atraumatic. EYES: EOMI. No redness or drainage. Conjunctivae normal. ENT: Mucous membranes pink and moist. NECK: Normal AROM. CHEST: No respiratory distress. EXTREMITIES: Normal range of motion. No edema. SKIN: Warm, dry, no rash. Capillary refill normal. Normal skin turgor. 1.5 cm x2mm linear full thickness skin avulsion to the right 4th finger at the palmar aspect of the D IP. Distal sensation intact. Capillary refill normal. Full range of motion against resistance. No active bleeding. NEURO: No focal deficits. Alert and oriented x3. Gait steady. PSYCH: Normal affect. No signs of depression or anxiety. Course Course Level of Care: Express Care Visit Vital Signs Vital signs: Vital Signs Temperature 99.1 F 09/08/23 18:45 Pulse Rate 108 H 09/08/23 18:45 Respiratory Rate 18 09/08/23 18:45 Blood Pressure 133/97 H 09/08/23 18:45 Pulse Oximetry 96 09/08/23 18:45 Oxygen Delivery Room Air 09/08/23 18:45 Temperature 99.1 F 09/08/23 18:45 Pulse Rate 108 H 09/08/23 18:45 Respiratory Rate 18 09/08/23 18:45 Blood Pressure 133/97 H 09/08/23 18:45 Pulse Oximetry 96 09/08/23 18:45 Oxygen Delivery Room Air 09/08/23 18:45 Reviewed Procedures Laceration Laceration 1: Date: 09/08/23 Time: 19:34 Site: hand
== END 2023-09-08 19:42 | disposition home or self-care (01) ==
PROVIDERS: Emergency Provider Nurse Practitioner; PCP Nurse Practitioner Family
DX: S61.214A Laceration without foreign body of right ring finger without damage to nail, initial encounter (principal); W45.8XXA Other foreign body or object entering through skin, initial encounter; F17.210 Nicotine dependence, cigarettes, uncomplicated
CPT/HCPCS: 12001; 99212; G0463

== ENCOUNTER 2023-12-10 01:36 | Emergency (ER) | payer OTHER, BC, SELFPAY ==
--- NOTE | ~2023-12-10 | XR_ITS ---
Right Hand Technique: PA and lateral views were obtained. Clinical History: Laceration, foreign body Findings: No acute fracture or dislocation is seen. Osseous alignment is anatomic. Joint spaces are p reserved. Soft tissues are unremarkable. Impression: Unremarkable right hand. Reviewed, dictated and finalized at location . CLINICAL TRIALS Impression: Unremarkable right hand.
[2023-12-10 01:40] VITALS: BP 122/78; PULSE 83; RESP 16; TEMP 36.1; O2SAT 99
--- NOTE | 2023-12-10 01:46 | ED.GENADULT ---
[facility] - General Adult General Chief complaint: Wound/Laceration Stated complaint: R pointer finger lac Time Seen by Provider: 12/10/23 01:41 Source: patient Mode of arrival: ambulatory Limitations: no limitations History of Present Illness [facility] narrative: This is a 28-year-old male who presents to the ED with chief complaint of right index finger laceration that occurred while at work today around 12:00 p.m.. Patient reports that he accidentally cut the finger while removing an oil filter. Reports tetanus is up today. Denies any further sites of pain or injury. Denies numbness or weakness. Related Data Allergies Allergy/AdvReac Type Severity Reaction Status Date / Time No Known Allergies Allergy Unknown Verified 09/08/23 18:48 Review of Systems Review of Systems: All systems as dictated in [facility] Past Medical History Medical History History of ETOH abuse Surgical History Surgical History Hx of appendectomy Family History Family History Other No significant family history Social History Social History Smoking packs per day: 0.5 Smoking cigarettes per day: 10.0 Years smoked: 9 Smoking pack-years: 4.50 Smoking status: Current every day smoker Tobacco type: cigarettes Alcohol intake: current Alcohol use details: social Substance use: former Substance use type: marijuana Living arrangements: with family Gender identity (if verbalized by the patient): Male Exam Narrative: GENERAL: Well-appearing, well-nourished, and in no acute distress. HEAD: Normocephalic, atraumatic. EYES: PERRLA and EOMI. ENT: Nares clear, no rhinorrhea or epistaxis. Mucous membranes moist. Oropharynx without tonsillar hypertrophy exudate or other lesions. NECK: Supple. No adenopathy or masses. CHEST: No respiratory distress. Clear to auscultation. No wheezes rales or rhonchi HEART: Regular rate and rhythm. No murmur heard. Normal peripheral pulses. ABDOMEN: Soft, nontender, nondistended, normal active bowel sounds. MSK: Normal range of motion. No edema. SKIN: Gaping at 2 cm laceration to the dorsum of the right index finger distal to the PIP joint. No active bleeding. Right hand is obviously contaminated/dirty NEURO: Alert and oriented x3. No focal deficits. PSYCH: Normal mood and affect. Course Vital Signs Vital signs: Vital Signs Temperature 97 F L 12/10/23 01:40 Pulse Rate 83 12/10/23 01:40 Respiratory Rate 16 12/10/23 01:40 Blood Pressure 122/78 12/10/23 01:40 Pulse Oximetry 99 12/10/23 01:40 Oxygen Delivery Room Air 12/10/23 01:40 Temperature 97 F L 12/10/23 01:40 Pulse Rate 83 12/10/23 01:40 Respiratory Rate 16 12/10/23 01:40 Blood Pressure 122/78 12/10/23 01:40 Pulse Oximetry 99 12/10/23 01:40 Oxygen Delivery Room Air 12/10/23 01:40 Procedures Laceration Laceration 1: Date: 12/10/23 Time: 02 Site: hand Side (If applicable): right Size (cm): 2 Description: linear Depth: simple, single layer Local Anesthetic: lidocaine 1% Amount of anesthesia used (mL): 4 Pre-repair: wound explored, irrigated extensively and deep structures intact ====== Skin Level ====== Skin layer closed with: nylon Size (cm): 5-0 Number of sutures: 3 Technique: simple, interrupted ====== Subcutaneous Layer ====== ====== Muscle Layer ====== ====== Tendon Layer ====== Medical Decision Making [facility] Narrative Medical decision making narrative: This is a 28-year-old male who presents to the ED with chief complaint right index finger laceration occurred over 12 hours ago. Vitals are normal. Exam remarkable f
[2023-12-10 02:28] VITALS: PULSE 68; RESP 15; O2SAT 98
== END 2023-12-10 02:29 | disposition home or self-care (01) ==
PROVIDERS: Emergency Provider Physician Assistant; PCP Nurse Practitioner Family
DX: S61.210A Laceration without foreign body of right index finger without damage to nail, initial encounter (principal); F17.210 Nicotine dependence, cigarettes, uncomplicated; W26.8XXA Contact with other sharp object(s), not elsewhere classified, initial encounter
CPT/HCPCS: 12001; 73120; 99283

== ENCOUNTER 2023-12-13 20:36 | Emergency (ER) | payer BC, SELFPAY ==
[2023-12-13 20:39] VITALS: BP 128/100; PULSE 102; RESP 16; TEMP 36.7; O2SAT 100
--- NOTE | 2023-12-13 21:11 | ED.GENADULT ---
[facility] - General Adult General Chief complaint: Extremity Problem,Nontraumatic Stated complaint: pointer finger suture check Time Seen by Provider: 12/13/23 20:49 Source: patient Mode of arrival: ambulatory Limitations: no limitations History of Present Illness [facility] narrative: This is a 28-year-old male who presents to the ED for chief complaint laceration/suture problem after having stitches placed by myself 3 days ago. Patient had initial injury in which he waited over 12 hours to be seen. He reports since being discharged the finger had been doing well but today noticed that the stitches popped out. He denies any significant pain in the finger. States that maybe little bit of purulent discharge. He reports that he has not taken all of his antibiotic doses. Denies fevers, chills, numbness, weakness. Related Data Allergies Allergy/AdvReac Type Severity Reaction Status Date / Time No Known Allergies Allergy Unknown Verified 09/08/23 18:48 Review of Systems Review of Systems: All systems as dictated in [facility] Past Medical History Medical History History of ETOH abuse Surgical History Surgical History Hx of appendectomy Family History Family History Other No significant family history Social History Social History Smoking packs per day: 0.5 Smoking cigarettes per day: 10.0 Years smoked: 9 Smoking pack-years: 4.50 Smoking status: Current every day smoker Tobacco type: cigarettes Alcohol intake: current Alcohol use details: social Substance use: former Substance use type: marijuana Living arrangements: with family Gender identity (if verbalized by the patient): Male Exam Narrative: GENERAL: Well-appearing, well-nourished, and in no acute distress. HEAD: Normocephalic, atraumatic. EYES: PERRLA and EOMI. ENT: Nares clear, no rhinorrhea or epistaxis. Mucous membranes moist. Oropharynx without tonsillar hypertrophy exudate or other lesions. NECK: Supple. No adenopathy or masses. CHEST: No respiratory distress. Clear to auscultation. No wheezes rales or rhonchi HEART: Regular rate and rhythm. No murmur heard. Normal peripheral pulses. ABDOMEN: Soft, nontender, nondistended, normal active bowel sounds. MSK: Normal range of motion. No edema. SKIN: Gaping 2 cm laceration noted to the dorsum of the index finger distal to the PIP. There is scant purulent material that is able to be expressed out of the wound. Full range of motion of the finger. Mild tenderness. No significant swelling or edema. NEURO: Alert and oriented x3. No focal deficits. PSYCH: Normal mood and affect. Course Vital Signs Vital signs: Vital Signs Temperature 98.1 F 12/13/23 20:39 Pulse Rate 102 H 12/13/23 20:39 Respiratory Rate 16 12/13/23 20:39 Blood Pressure 128/100 H 12/13/23 20:39 Pulse Oximetry 100 12/13/23 20:39 Oxygen Delivery Room Air 12/13/23 20:39 Temperature 98.1 F 12/13/23 20:39 Pulse Rate 92 12/13/23 22:19 Respiratory Rate 16 12/13/23 22:19 Blood Pressure 130/94 H 12/13/23 22:19 Pulse Oximetry 97 12/13/23 22:19 Oxygen Delivery Room Air 12/13/23 20:39 Procedures Laceration Laceration 1: Date: 12/13/23 Time: 22:05 Site: hand Side (If applicable): right Size (cm): 2 Description: linear and contaminated (Purulent material noted) Depth: simple, single layer Local Anesthetic: lidocaine 1% (Digital block) Amount of anesthesia used (mL): 1.5 Pre-repair: wound explored, irrigated extensively, extensive debridement and deep structures intact ====== Skin Level ====== Skin layer closed with: nylon Size (cm): 4-0 Number
[2023-12-13] MEDS: ceFAZolin SODIUM 1 GM VIAL IM (22:09)
[2023-12-13] MEDS: WATER, STERILE FOR INJECTION 10 ML VIAL XX (22:11)
[2023-12-13 22:19] VITALS: BP 130/94; PULSE 92; RESP 16; O2SAT 97
== END 2023-12-13 22:20 | disposition home or self-care (01) ==
PROVIDERS: Emergency Provider Physician Assistant; PCP Nurse Practitioner Family
DX: T81.33XA Disruption of traumatic injury wound repair, initial encounter (principal); F17.210 Nicotine dependence, cigarettes, uncomplicated
CPT/HCPCS: 12001; 12020; 96372; 99283; J0690

== ENCOUNTER 2023-12-19 02:16 | Emergency (ER) | payer BC, SELFPAY ==
[2023-12-19 02:22] VITALS: BP 155/89; PULSE 100; RESP 16; TEMP 36.6; O2SAT 97
--- NOTE | 2023-12-19 02:43 | PC.NURSE ---
Pt LWBS after being taken back to room. Pt states he has to be up early and will come back tomorrow. Pt educated on s/sx that warrant a return visit. Pt instructed to follow up w pcp if he does not return to ER for eval.
== END 2023-12-19 02:50 | disposition left against medical advice (07) ==
PROVIDERS: PCP Nurse Practitioner Family
DX: S61.210A Laceration without foreign body of right index finger without damage to nail, initial encounter (principal)
CPT/HCPCS: 99199

== ENCOUNTER 2024-05-04 22:19 | Emergency (ER) | payer BC, SELFPAY ==
[2024-05-04 22:23] VITALS: BP 113/77; PULSE 87; RESP 18; TEMP 36.7; O2SAT 98
--- NOTE | 2024-05-05 01:53 | PC.NURSE ---
1st call no answer
== END 2024-05-05 01:55 | disposition left against medical advice (07) ==
PROVIDERS: PCP Nurse Practitioner Family
DX: F41.9 Anxiety disorder, unspecified (principal)
CPT/HCPCS: 99199

== ENCOUNTER 2024-05-05 15:32 | Emergency (ER) | payer BC, SELFPAY ==
--- NOTE | 2024-05-05 15:34 | PC.NURSE ---
While attempting to place wristband on patient, they decided he didn't want to be seen. Patient ambulatory with steady gait and in no obvious distress out of ED.
== END 2024-05-05 15:45 | disposition left against medical advice (07) ==
PROVIDERS: PCP Nurse Practitioner Family
DX: Z53.21 Procedure and treatment not carried out due to patient leaving prior to being seen by health care provider (principal)
CPT/HCPCS: 99199

== ENCOUNTER 2024-05-06 20:30 | Emergency (ER) | payer BC, SELFPAY ==
--- NOTE | ~2024-05-06 | XR_ITS ---
EXAM: XR ankle RT min 3V, XR foot RT min 3V DATE: 05/06/2024 22:41 HISTORY: pain . COMPARISON: None available. FINDINGS: Normal mineralization. No fracture or dislocation. No lytic or blastic lesion. Joint space s are maintained. No erosion or periosteal change. Soft tissues within normal limits. IMPRESSION: No acute osseous finding in the right ankle or right foot. Reviewed, dictated and finalized at location K. IMPRESSION: No acute osseous finding in the right ankle or right foot.
[2024-05-06 21:15] VITALS: BP 96/76; PULSE 102; RESP 12; TEMP 36.7; O2SAT 95
[2024-05-06 21:19] VITALS: RESP 102; O2SAT 95
[2024-05-06 21:20] VITALS: PULSE 102
--- NOTE | 2024-05-06 21:25 | PC.NURSE ---
EDP Dr. Richi MCCLURE bolus of NS for pt low BP.
[2024-05-06] MEDS: SODIUM CHLORIDE 0.9% IV 1,000 ML 999 ML IV CONT (22:09)
[2024-05-06 22:21] VITALS: BP 116/93; PULSE 99; RESP 12; O2SAT 95
--- NOTE | 2024-05-06 22:44 | ED.OVERDOSE ---
HPI - Overdose General Chief Complaint: Overdose Stated Complaint: Kyral OD Time Seen by Provider: 05/06/24 21:22 Source: patient and RN notes reviewed Mode of arrival: EMS Limitations: no limitations History of Present Illness HPI Narrative: patient presents after reportedly overdosing on fentanyl. He had otherwise been in recovery on medication assisted therapy using Suboxone and has Suboxone available to him. He did report relapsing using fentanyl, last use at 4:00 p.m. by snorting. it is reported that he was found unresponsive with agonal breaths. Patient received a total of 4 mg Narcan via EMS in the form 2 mg IV and 2 mg IM at which point he became alert and protecting his airway. Patient reports right foot pain after falling out of bed yesterday but also states that he possibly laid with this extremity off the side of the bed or against an object for an unknown period of time. He is complaining of paresthesias in his right foot particularly along the great toe. He receives his Suboxone through chest not in [place] and has been on this for 7 months. He denies any shortness of breath. Related Data Allergies Allergy/AdvReac Type Severity Reaction Status Date / Time No Known Allergies Allergy Unknown Verified 05/06/24 21:21 [facility] Past Medical History Medical History History of ETOH abuse History of narcotic use Surgical History Surgical History Hx of appendectomy Family History Family History Other No significant family history Social History Social History Smoking packs per day: 0.5 Smoking cigarettes per day: 10.0 Years smoked: 9 Smoking pack-years: 4.50 Smoking status: Current every day smoker Tobacco type: cigarettes Alcohol intake: current Alcohol use details: social Substance use: former Substance use type: marijuana Living arrangements: with family Gender identity (if verbalized by the patient): Male Exam Narrative: GENERAL: Well-appearing, well-nourished, and in no acute distress. HEAD: Normocephalic, atraumatic. EYES: Non injected, non icteric ENT: Nares clear, no rhinorrhea or epistaxis. NECK: Supple. CHEST: Speaking in full sentences. No respiratory distress. HEART: Regular rate and rhythm. Palpable DP pulse on the right. ABDOMEN: Soft, nondistended. EXTREMITIES: Normal range of motion. No edema. compartments are soft. feet are warm and well perfused other than bilateral toes which are cool but symmetrically so. SKIN: Warm, dry, no rash. NEURO: Alert and oriented x3. proprioception intact in left great toe. Patient has sensation when right great toe is touched though diminished proprioception. Unable to demonstrate dorsiflexion or plantarflexion of right great toe. PSYCH: congruentmood and affect. anxious at times Course Vital Signs Vital signs: Vital Signs Temperature 98.1 F 05/06/24 21:15 Pulse Rate 102 H 05/06/24 21:15 Respiratory Rate 12 05/06/24 21:15 Blood Pressure 96/76 L 05/06/24 21:15 Pulse Oximetry 95 05/06/24 21:15 Oxygen Delivery Room Air 05/06/24 21:15 Temperature 98.1 F 05/06/24 21:15 Pulse Rate 84 05/07/24 01:33 Respiratory Rate 14 05/07/24 01:33 Blood Pressure 119/82 05/07/24 01:33 Pulse Oximetry 96 05/07/24 01:33 Oxygen Delivery Room Air 05/06/24 21:19 MDM - Overdose MDM Narrative Medical decision making narrative: patient presents with accidental overdose on fentanyl, last use at 4:00 p.m.. He has a history of opiate use disorder and has been on Suboxone the last 7 months and has this medication available to him but did relapse and use fentanyl via snorting. he was found to be unresponsive with agonal breaths for which a nasopharyng
[2024-05-06 23:31] VITALS: BP 113/98; PULSE 97; RESP 12; O2SAT 93
[2024-05-06 23:46] VITALS: BP 111/81; PULSE 98; RESP 14
[2024-05-07 00:01] VITALS: BP 107/82; PULSE 97; RESP 12; O2SAT 94
[2024-05-07 00:31] VITALS: BP 112/92; PULSE 100; RESP 12; O2SAT 94
[2024-05-07 01:00] VITALS: BP 130/95; PULSE 99; RESP 13; O2SAT 93
[2024-05-07 01:33] VITALS: BP 119/82; PULSE 84; RESP 14; O2SAT 96
== END 2024-05-07 01:40 | disposition home or self-care (01) ==
PROVIDERS: Emergency Provider Student in an Organized Health Care Education/Training Program; PCP Nurse Practitioner Family
DX: T40.411A Poisoning by fentanyl or fentanyl analogs, accidental (unintentional), initial encounter (principal); S94.21XA Injury of deep peroneal nerve at ankle and foot level, right leg, initial encounter; F17.210 Nicotine dependence, cigarettes, uncomplicated; X58.XXXA Exposure to other specified factors, initial encounter
CPT/HCPCS: 73610; 73630; 96360; 99283; J7030

== ENCOUNTER 2024-05-18 09:57 | Emergency (ER) | payer BC, SELFPAY ==
[2024-05-18 10:11] VITALS: BP 132/87; PULSE 99; RESP 18; TEMP 36.4; O2SAT 96
[2024-05-18] MEDS: CYCLOBENZAPRINE HCL 10 MG TABLET PO (12:20)
[2024-05-18] MEDS: KETOROLAC 30 MG/ML VIAL (*BKC) IM (12:20)
--- NOTE | 2024-05-18 12:32 | ED.GENADULT ---
HPI - General Adult General Chief complaint: Extremity Injury, Lower Stated complaint: R foot Time Seen by Provider: 05/18/24 11:45 History of Present Illness HPI narrative: Lucius Pascal is a 29 y/o male who presents today with reports of some continued pain to this right foot. He states he was here two weeks ago with numbness / tingling to his right leg/ right foot after falling asleep on his right side. He states that this has been improving and he has been going to his chiropractor and that has also been helping but he states he is still having some pain to his foot. He reports that there is some swelling but states this swelling is an improvement from before and he has been ambulating without difficulty Denies any new injury/ trauma to right leg/ right foot Related Data Allergies Allergy/AdvReac Type Severity Reaction Status Date / Time No Known Allergies Allergy Unknown Verified 05/18/24 10:17 Review of Systems Review of Systems: All systems reviewed & are unremarkable except as noted in HPI and below PMFSH Past Medical History Medical History History of ETOH abuse History of narcotic use Surgical History Surgical History Hx of appendectomy Family History Family History Other No significant family history Social History Social History Smoking packs per day: 0.5 Smoking cigarettes per day: 10.0 Years smoked: 9 Smoking pack-years: 4.50 Smoking status: Current every day smoker Tobacco type: cigarettes Alcohol intake: current Alcohol use details: social Substance use: former Substance use type: marijuana Living arrangements: with family Gender identity (if verbalized by the patient): Male Exam Narrative: GENERAL: Well-appearing, well-nourished, and in no acute distress. HEAD: Normocephalic, atraumatic. EYES: PERRLA and EOMI. ENT: Nares clear, no rhinorrhea or epistaxis. Mucous membranes moist. Oropharynx without tonsillar hypertrophy exudate or other lesions. Bilateral TMs pearly [place]on nonbulging NECK: Supple. No adenopathy or masses. No carotid bruits or JVD CHEST: Clear to auscultation. No respiratory distress. No wheezes rales or rhonchi HEART: Regular rate and rhythm. No murmur heard. Normal peripheral pulses. ABDOMEN: Soft, nontender, nondistended, normal active bowel sounds. EXTREMITIES: Normal range of motion. Right foot noted to have some swelling/ pt states this is an improvement - no erythema + neurovascular intact, ROM intact SKIN: Warm, dry, no rash. NEURO: No focal deficits. Alert and oriented x3. PSYCH: Normal mood and affect. Course Vital Signs Vital signs: Vital Signs Temperature 36.4 C 05/18/24 10:11 Pulse Rate 99 05/18/24 10:11 Respiratory Rate 18 05/18/24 10:11 Blood Pressure 132/87 05/18/24 10:11 Pulse Oximetry 96 05/18/24 10:11 Oxygen Delivery Room Air 05/18/24 10:11 Temperature 36.4 C 05/18/24 10:11 Pulse Rate 99 05/18/24 10:11 Respiratory Rate 18 05/18/24 10:11 Blood Pressure 132/87 05/18/24 10:11 Pulse Oximetry 96 05/18/24 10:11 Oxygen Delivery Room Air 05/18/24 10:11 Medical Decision Making [facility] Narrative Medical decision making narrative: 29 y/o male presents with some continued pain to his right foot after getting a 'pinched nerve' two weeks ago he has tried naproxen with minimal relief. Right foot noted to have some swelling/ pt states this is an improvement - no erythema + neurovascular intact, ROM intact He denies any new or worsening symptoms/ He denies any new trauma/ injury Plan to give Toradol and Flexeril here Will d/c home with steroid pack and Flexeril PRN Close follow up with PCP encouraged Strict return precautions provided Medical Records Medic
== END 2024-05-18 12:56 | disposition home or self-care (01) ==
PROVIDERS: Emergency Provider Nurse Practitioner Family; PCP Nurse Practitioner Family
DX: M79.671 Pain in right foot (principal); F17.210 Nicotine dependence, cigarettes, uncomplicated
CPT/HCPCS: 96372; 99283; A9270; J1885

== ENCOUNTER 2024-06-17 20:26 | Emergency (ER) | payer BC, SELFPAY | END 2024-06-17 20:30 | disposition left against medical advice (07) | DX: Z53.21 Procedure and treatment not carried out due to patient leaving prior to being seen by health care provider (principal) | CPT/HCPCS: 99199 ==

== ENCOUNTER 2024-08-24 10:10 | Emergency (ER) | payer BC, SELFPAY ==
[2024-08-24 10:39] VITALS: BP 125/62; PULSE 78; RESP 18; TEMP 36.4; O2SAT 96
--- NOTE | 2024-08-24 10:41 | ED_ITS ---
HPI - Dental/Oral General Chief complaint: Dental/Oral Stated complaint: Dental/Oral Time Seen by Provider: 08/24/24 11:06 Source: patient, RN notes reviewed and old records reviewed Mode of arrival: ambulatory Limitations: no limitations History of Present Illness HPI Narrative: 29-year-old male presents to [facility] with dental pain, swelling. Has chronic dental issues. Pain increased over the last several days. Reports that he does have a dentist. Called is dental office and made an appointment for next week. [place] [facility], appointment next Friday Related Data Home Medications Medication Instructions Recorded Confirmed buprenorphine 8 mg-naloxone 2 mg 1 film DIRECTED 08/24/24 08/24/24 sublingual film Allergies Allergy/AdvReac Type Severity Reaction Status Date / Time No Known Allergies Allergy Unknown Verified 05/18/24 10:17 Review of Systems Review of Systems: All systems reviewed & are unremarkable except as noted in HPI and below Constitutional: Constitutional: Reports no additional constitutional complaints ENT: Reports as per HPI and Reports dental pain Cardiovascular: Cardiovascular: Reports no additional cardiovascular complaints, Denies chest pain and Denies dyspnea Respiratory: Respiratory: Reports no additional respiratory complaints, Denies chest congestion, Denies cough and Denies dyspnea Gastrointestinal: Gastrointestinal: Reports no additional gastrointestinal complaints, Denies abdominal pain, Denies nausea and Denies vomiting Musculoskeletal: Musculoskeletal: Reports no additional musculoskeletal complaints Integumentary/Breasts: Skin/Breast: Reports system reviewed and no additional complaints, except as docu PMFSH Past Medical History Medical History History of ETOH abuse History of narcotic use Surgical History Surgical History Hx of appendectomy Family History Family History Other No significant family history Social History Social History Smoking packs per day: 0.5 Smoking cigarettes per day: 10.0 Years smoked: 9 Smoking pack-years: 4.50 Smoking status: Current every day smoker Tobacco type: cigarettes Alcohol intake: current Alcohol use details: social Substance use: former Substance use type: marijuana Living arrangements: with family Gender identity (if verbalized by the patient): Male Comments At the time of my signature, I reviewed and agree with the nursing past medical, surgical, social, and family history. There is no relevant family history pertinent to the patient complaint. Exam Const: General: cooperative, healthy appearing, comfortable, no acute distress, well developed, alert and well nourished Nutritional Appearance: well nourished Orientation/consciousness: patient oriented x3 Limitations: no limitations HENMT: Head: normal to inspection Ears: hearing grossly normal bilaterally and external ears normal Face/Nose/Sinus: Normal external nose present, normal facial exam and face symmetric Face and sinus: normal facial exam and face symmetric Mouth: Yes Normal oral and palatal mucosa present, Yes lip normal and Yes tongue normal Teeth and gingiva: abnormal tooth and associated gingiva and poor dentition Throat: uvula midline and no uvular edema Eyes: General: appearance normal, both eyes and all related structures Alignment and Position: alignment normal Periorbital: periorbital findings normal Neck: Neck: normal visual inspection, full ROM, no lymphadenopathy and no meningeal signs Chest: Chest palpation & inspection: normal inspection of the chest Resp: Effort & Inspection: normal respiratory effort and able to speak in complete sentences Cardio: Rate: regular rate Skin: General skin exam: normal color and no rashes or lesions noted Lesions: no lesions Rashes: no rashes Wounds: no wounds Neuro: General: patient oriented x3, gait normal, tone normal, moves all extremities and no meningeal signs Cognition (Neuro): normal cognition Speech: normal speech Gait exam (Neuro): Normal gait present Extrem: General: normal to inspection, full ROM, capillary refill normal and normal gait Psych: Appearance: grossly normal and well kempt Mental Status: mental status grossly normal Speech and movement: Normal speech and movement present and Clear speech present Affect: normal affect Attitude: cooperative Course Course Level of Care: Express Care Visit Vital Signs Vital signs: Vital Signs Temperature 97.5 F L 08/24/24 10:39 Pulse Rate 78 08/24/24 10:39 Respiratory Rate 18 08/24/24 10:39 Blood Pressure 125/62 08/24/24 10:39 Pulse Oximetry 96 08/24/24 10:39 Oxygen Delivery Room Air 08/24/24 10:39 Temperature 97.5 F L 08/24/24 10:39 Pulse Rate 78 08/24/24 10:39 Respiratory Rate 18 08/24/24 10:39 Blood Pressure 125/62 08/24/24 10:39 Pulse Oximetry 96 08/24/24 10:39 Oxygen Delivery Room Air 08/24/24 10:39 Reviewed MDM - Dental/Oral MDM Narrative Medical decision making narrative: Patient sitting comfortably in exam. Nontoxic, vitals stable. Patient presents with chronic dental issues, acute dental infection. Has and dental provider established. I wrote a has an appointment next Friday Patient appropriate for outpatient treatment with an antibiotic and close follow-up. Discharge instructions reviewed with patient, as well as provided in writing per nursing staff. The instructions also include specific and strict return/GO TO THE ER as well as f/u information. All questions have been answered, and the patient deny any further questions with discharge and discharge plan. Some parts of this dictation were generated by voice recognition software and may contain typographical and/or grammatical inaccuracies. Differential Diagnosis Differential diagnosis: Likely gingival abscess, dental caries, toothache and dental abscess Critical Care Time Critical Care Time Critical Care Time: No Discharge Plan Discharge Clinical Impression: Dental decay, Dental infection Patient Disposition: Home, Self-Care Condition: Stable Instructions: Antibiotic Form, Dental Abscess (ED) Additional Instructions: Finish the entire course of antibiotics & use the mouthwash. After every time you eat be sure to use salt water rinses. Apply ice to face to help with pain. Take Tylenol alternating with Motrin as needed for pain. You can alternate every 4 hours You need to follow-up with a dental provider as soon as possible for further evaluation and treatment. Follow up with a Primary Care Provider (PCP) about medical needs. A PCP can help keep you healthy by preventive medicine and screening. Go to the ER for New or worsening symptoms. Patient Language: And[place]ran Prescriptions: New amoxicillin 875 mg tablet 875 mg PO Q12H Qty: 20 0RF No Action buprenorphine-naloxone 8-2 mg film 1 film DIRECTED Follow-up/Referrals: Shantelle Petersen APRN [Primary Care Provider] - 2 Weeks ([facility] follow-up) Stand Alone Forms: Work/School Release IP Time of Disposition: :13
== END 2024-08-24 11:23 | disposition home or self-care (01) ==
PROVIDERS: Emergency Provider Nurse Practitioner; PCP Nurse Practitioner Family
DX: K04.7 Periapical abscess without sinus (principal); K02.9 Dental caries, unspecified; F17.210 Nicotine dependence, cigarettes, uncomplicated
CPT/HCPCS: 99213; G0463

== ENCOUNTER 2024-08-30 09:45 | Outpatient (RCR) | payer BC, SELFPAY ==
--- NOTE | 2024-06-09 19:37 | PTOPEVAL1 ---
Assessment and note entered by Lashay Mattson, PT Evaluation Information Assessment Status Evaluation Diagnosis lumbago with sciatica right side ICD-10 Condition Codes (PT) R26.9 Onset about 5 weeks Subjective Information Fell asleep on left side with arm hanging over pillow and RLE over top. woke up with a red neena on buttock cheek and inner elbow. This is the first time had sciatica Pt reports no back problems either Has been staying at his father's, has been in bed recently but was in a recliner for a while Reports was moving better then 4 days ago was moving around and got worse. Was taking Meloxicam and was helping a little. States also had a steroid pack of 6 days and muscle relaxer 8 pills. States was hard to tell if any of this helped. Tried using ice for a long time. Chiropractic was helping but stopped seeing him about a week and a half ago due to financial limitations. Went to emergency rooms, 05/18/24 was in [facility] and the took tx-rays of foot and ankle but no x- rays of hips. 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 Hasn't been to work since this happened. Reported Pain Level Pain Score 6: Self Report Assessment PT Clinical Summary Pt presents with severe pain into RLE effecting his walking especially. Pt has been to emergency room multiple times, states has not had an x-ray on his hip and low back. Even that pt attributes to beginning of issue was position based in sleep versus traumatic. Pt evaluation shows likely pelvic alignment deficit contributing to sciatic nerve irritation. Pt was educated on anatomy of pelvis as related to sciatic nerve, nerve distribution and involved pain patterns. Was educated on cryotherapy placement and safety, provided initial muscle energy techniques for self -correction of alignment between therapy sessions, and educated in therapy plan of care. Pt will greatly benefit from physical therapy to cont to address pelvic alignment, pain, and assist pt in returning to PLOF. Plan of Care Interventions Electrical Stimulation,Gait Training,Hot Pack/Cold Pack,Manual Therapy,Mechanical Traction,Neuro Re- education,Patient/Caregiver Educati,Therapeutic Activities,Therapeutic Exercise,Self-Care/Home Management,Ultrasound PT Services Indicated Yes Treatment Frequency and 2x weekly x 10 visits Duration These treatments will address the objective and functional deficits as defined above. The patient will be advanced safely and appropriately in order for the patient to progress towards his/her prior level of function. Additional exercises will be introduced and as well as a comprehensive home exercise program upon discharge, if needed, ?to ensure carryover of functional gains achieved in the clinic. This treatment plan has been reviewed and agreement upon by the patient.
--- NOTE | 2024-06-09 19:38 | OPREHPOC ---
Outpatient Therapy Plan of Care This is a Multidisciplinary Plan of Care that may contain components documented by all disciplines (PT, OT, and ST.) PT Problem 1 PT Problem #1 Knowledge Deficit PT Goal 1 Goal / Goal Update Pt will be independent in HEP Pt will verbalize understanding of diagnosis and prognosis Target Visit 10 PT Problem 2 PT Problem #2 Pain PT Goal 1 Goal / Goal Update Pt will report greatest pain level at 5/10 or less to improve ADLs and activities5 PT Goal 2 Goal / Goal Update Pt will report resolution of pain to return to PLOF PT Problem 3 PT Problem #3 Impaired Range of Motion PT Goal 1 Goal / Goal Update Pt will demo full lumbar ROM without pain Target Visit 10 PT Problem 4 PT Problem #4 Impaired Gait PT Goal 1 Goal / Goal Update Pt will demo appropriate heel-toe pattern with ambulation Target Visit 5 PT Goal 2 Goal / Goal Update Pt will demo normalized gait pattern without AD without pain Target Visit 10
--- NOTE | 2024-06-16 13:26 | PCPTNOTE ---
Patient called and stated he would not be able to make it today. Later his father called and stated he was unable to drive son to appointment but they would be here at next appointment this week.
--- NOTE | 2024-06-18 10:40 | PCPTNOTE ---
Patient did not show up for scheduled appointment this date.
--- NOTE | 2024-08-12 14:51 | PTOPPROG ---
Assessment and note entered by Lashay Mattson, PT Evaluation Information Assessment Status Progress Diagnosis lumbago with sciatica right side ICD-10 Condition Codes (PT) R26.9 Onset about 5 weeks Subjective Information Self-perceived improvement: 65-70% Has recently been laid off. Is wondering about disability. Assessment PT Clinical Summary Pt has attended therapy consistently for sciatica. He has made significant progress overall, with lowest pain rating going from 3/10 to 0/10, highest pain rating dropping from 10/10 to 7/10, improving lumbar ROM, improved gait. Pt has yet to return to work type activities and high level strengthening thus would benefit from cont therapy at a reduced frequency to prepare for return to work. Plan of Care Interventions Electrical Stimulation,Gait Training,Hot Pack/Cold Pack,Manual Therapy,Mechanical Traction,Neuro Re- education,Patient/Caregiver Educati,Therapeutic Activities,Therapeutic Exercise,Self-Care/Home Management,Ultrasound PT Services Indicated Yes Treatment Frequency and 1x weekly x 6 visits Duration These treatments will address the objective and functional deficits as defined above. The patient will be advanced safely and appropriately in order for the patient to progress towards his/her prior level of function. Additional exercises will be introduced and as well as a comprehensive home exercise program upon discharge, if needed, ?to ensure carryover of functional gains achieved in the clinic. This treatment plan has been reviewed and agreement upon by the patient.
--- NOTE | 2024-09-07 11:25 | PCPTNOTE ---
This treatment is being continued on visit number [id number]. Please see documentation on both accounts to view progress. Completed interventions, outcomes, and problems have been marked as Inactive to facilitate the copying of the Care plan routine for recurring accounts.
== END 2024-09-06 23:59 | disposition home or self-care (01) ==
LOC: ANHHIPT 09:45
DX: M54.41 Lumbago with sciatica, right side (principal)
CPT/HCPCS: 97014; 97035; 97110; 97112; 97116; 97140; 97161; 97530; 97750; G0283

== ENCOUNTER 2024-09-08 10:36 | Outpatient (RCR) | payer BC, SELFPAY ==
--- NOTE | 2024-09-07 11:13 | PCPTNOTE ---
The treatment documented on this account is a continuation of the treatment documented on visit number [id number]. Please see documentation on both accounts to view progress. The Plan of Care has been transitioned and updated within the new V#. I have addressed and agree with the discipline specific Problems, Interventions, and Goals for the current certification period. Completed interventions, outcomes, and problems have been marked as Inactive to facilitate the copying of the Care plan routine for recurring accounts.
--- NOTE | 2024-09-17 11:33 | PTOPDC ---
Assessment and note entered by Lashay Mattson, PT Evaluation Information Assessment Status Discharge - Pt Not Present Diagnosis lumbago with sciatica right side ICD-10 Condition Codes (PT) R26.9 Assessment PT Clinical Summary Pt no-call, no-showed for the fifth time this date . Policy states three appointments cancelled or no -showed within 24 hours is a discharge due to non- compliance. When he last attended his therapy session, he had been showing great improvements in pain, gait, and strength. He demonstrated squatting, lifting, and carrying of 20 lbs. He continued to show gait abnormality however appears related to decreased ankle motion and not pain. Unfortunately patient has to be discharged due to non-attendance. However he may benefit from work hardening and/or a functional capacity evaluation for return to work as he has been off multiple months. Thus this plan of care will be closed. Plan of Care PT Services Indicated No
== END 2024-09-17 12:42 | disposition home or self-care (01) ==
LOC: ANHHIPT 10:36
PROVIDERS: PCP Nurse Practitioner Family
DX: M54.41 Lumbago with sciatica, right side (principal)
CPT/HCPCS: 97110; 97530

== ENCOUNTER 2024-11-25 13:27 | Outpatient (CLI) | payer BC, SELFPAY ==
--- NOTE | ~2024-11-25 | MR_ITS ---
EXAMINATION: MR lumbar spine wo con DATE: 11/25/2024 14:18 INDICATION: Lumbago. TECHNIQUE: Magnetic resonance imaging (MRI) of the lumbar spine was performed without intravenous con trast. Sequences included sagittal T2-weighted FSE, sagittal T2-weighted FS FSE, sagittal T1-weighted FSE, and axial T2-weighted FSE. COMPARISON: None FINDINGS: There is 6 degrees levocurvature of lumbar spine. There is mild chronic anterior wedging of T12 and L1 vertebral bodies. There are Schmorl's nodes at multiple levels. Intervertebral disc heigh ts are normal. The distal spinal cord signal intensity is normal. The conus medullaris is at T12-L1. The following disc levels are specifically discussed: L1-L2: The disc does not extend beyond the endplate margin. There is no facet joint osteoarthritis. T here is no neural foraminal stenosis. There is no central canal stenosis. L2-L3: The disc does not extend beyond the endplate margin. There is mild bilateral facet joint osteo arthritis. There is no neural foraminal stenosis. There is no central canal stenosis. L3-L4: The disc is mildly bulging. There is mild bilateral facet joint osteoarthritis. There is mild bilateral neural foraminal stenosis. There is no central canal stenosis. L4-L5: The disc is mildly bulging. There is mild bilateral facet joint osteoarthritis. There is mild bilateral neural foraminal stenosis. There is no central canal stenosis. L5-S1: The disc does not extend beyond the endplate margin. There is moderate bilateral facet joint o steoarthritis. There is no neural foraminal stenosis. There is no central canal stenosis. IMPRESSION: 1. Mild lumbar spondylosis. Reviewed, dictated and finalized at location A. CH ADVERTISING STRATEGIST IMPRESSION: 1. Mild lumbar spondylosis.
--- OUTSIDE RECORDS SUMMARY | 2024-11-25 13:31 | XMS_ITS | Referral Summary ---
Author Organization [facility] Address [address] [place] [phone] Care Team Providers Care Marketing Traffic Coordinator Name Role Phone Nicola Shantelle Diya OLEARY Primary Care Provider + Allergies No known active allergies Medications buprenorphine-na loxone (SUBOXONE) 8-[address] 1 Film under the tongue daily for 1 dose 1 Film 12/29/2023 Active Immunizations Name Administration Dates Next Due Tdap 07/29/2022 Social History Tobacco Use Types Packs/Day Years Used Date Smoking Tobacco: Every Day Cigarettes Tobacco Cessation:Ready to Q uit: Not Asked; Counseling Given: Not Answered Personal Safety Answer Date Recorded Have you ever been in or are you currently in a harmful physical or emotional relationship or is someone making you feel afraid or unsafe? 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 Gender Identity Not on file Sexual Orientation Not on file Last Filed Vital Signs Vital Sign Reading Time Taken Comments Blood Pressure 131/117 06/22/2024 7:13 PM CDT Pulse 95 06/22/2024 7:13 PM CDT Temperature 36.4 C (97.5 F) 06/22/2024 7:13 PM CDT Respiratory Rate 22 06/22/2024 7:13 PM CDT Oxygen Saturation 98% 06/22/2024 7:13 PM CDT Inhaled Oxygen Concentration - - Weight 54.4 kg (120 lb) 06/22/2024 7:12 PM CDT Height 162.6 cm (5' 4 ) 06/22/2024 7:12 PM CDT Body Mass Index 20.6 06/22/2024 7:12 PM CDT Plan of Treatment Not on file Insurance [facility] [place] [id number] [facility] Care Teams Marketing Traffic Coordinator Relationship Specialty Start Date End Date Shantelle Petersen NP [address] [address] PCP - General Nurse Practitioner 10/01/23
--- OUTSIDE RECORDS SUMMARY | 2024-11-25 13:31 | XMS_ITS | Referral Summary ---
Author Organization [facility] Address [address] [place] [address] Care Team Providers Care Eyewear Manufacturing Supervisor Name Role Phone Irma Grubbs MD Primary Care Provider [phone] Nicolasa Cevallos MD Unavailable [phone] Nicolasa Cevallos MD Unavailable [phone] Source Comments [facility],non-owned Affiliates and Associated Physician Practices is amultiple site organization consisting of ambulatory clinics and hospital sitesin [place], [place] and [place]. This disclosure is being madepursuant to the Care Everywhere program and may not contain all information available regarding this patient. Last updated 18.[facility] Allergies No known active allergies Medications * Be aware that medications may not be up to date on this document. Alwaysverify current medications with the patient. Medication Sig Dispensed Refills Start Date End Date Status permethrin (ELIMITE) 5 % cream Apply to affected area. Apply head to toe, wash off in 8-12 hours. 60 g 0 01/01/2011 Active methadone (DOLOPHINE) 5 MG tablet Take 5 mg by mouth once daily Active ibuprofen (MOTRIN) 400 MG tablet Take 1 tablet by mouth every 6 hours as needed for Pain 30 tablet 12/04/2019 Active cyclobenzaprine (FLEXERIL) 5 MG tablet Take 1 tablet by mouth 3 times daily as needed (Muscle spasms) 8 tablet 12/04/2019 Active acetaminophen (TYLENOL) 500 MG tablet Take 1 tablet by mouth every 4 hours as needed for Fever or Pain Maximum allowable Acetaminophen amount = 4 Grams (4000 mg) / 24 hours. 30 tablet 12/04/2019 Active Immunizations Name Administration Dates Next Due DTaP VACCINE IM (6wk-6yrs) 06/04/1999,,1994,1994,07/18 HEP B VACCINE, PED/ADOL 05/23/1995,1994, HIB BOOSTER 11/18/1995,1994,1994 ,1994 MENINGOCOCAL MENINGITIS 07/05/2008 MMR 06/04/1999,11/18/1995 POLIO IPV 06/04/1999 POLIO OPV 1994,1994,1994 PPD 06/04/1999 TDAP (7yrs+) 07/05/2008 Social History Tobacco Use Types Packs/Day Years Used Date Smoking Tobacco: Some Days Smokeless Tobacco: Never Alcohol Use Standard Drinks/Week Comments Yes 0 (1 standard drink = 0.6 oz pur e alcohol) Sex and Gender Information Value Date Recorded Sex Assigned at Not on file Gender Identity Not on file Sexual Orientation Not on file Last Filed Vital Signs Vital Sign Reading Time Taken Comments Blood Pressure 102/72 05/05/2024 7:43 PM CDT Pulse 95 05/05/2024 7:43 PM CDT Temperature 37 C (98.6 F) 05/05/2024 6:05 PM CDT Respiratory Rate 16 05/05/2024 7:43 PM CDT Oxygen Saturation 97% 05/05/2024 7:43 PM CDT Inhaled Oxygen Concentration - - Weight 63.5 kg (140 lb) 12/03/2019 8:54 PM TRANSPLANT NURSE PRACTITIONER Height 165.1 cm (5' 5 ) 12/03/2019 8:54 PM TRANSPLANT NURSE PRACTITIONER Body Mass Index 23.3 12/03/2019 8:54 PM TRANSPLANT NURSE PRACTITIONER Plan of Treatment Not on file Goals Goal Patient Goal Type Associated Problems Recent Progress Patient-Stated? Author Use safety retraint in car Lifestyle Izabela Tate, RN Care Teams Eyewear Manufacturing Supervisor Relationship Specialty Start Date End Date Irma Grubbs MD [address] [place] [address] PCP - General 12/06/19 Nicolasa Cevallos MD [address] [place] [address] PCP - Pediatrics 08/17/09 Nicolasa Cevallos MD [address] [place] [address] Pediatrics 12/06/19
--- OUTSIDE RECORDS SUMMARY | 2024-11-25 13:31 | XMS_ITS | Clinical Summary ---
Author Organization [facility] Address [address] [place] [address] Phone Care Team Providers Care Velvet Steamer Name Role Phone Shantelle Petersen ROHAN, JAMAR Primary Care Pro vider Allergies No known active allergies Medications * This document contains information received from the source organization and may not represent a complete record from that organization. acetaminophen (TYLENOL) 500 MG Tablet Take 500 mg by mouth. 12/04/2019 Active amoxicillin (AMOXIL) 500 MG Capsule TAKE 1 CAPSULE BY MOUTH EVERY 8 HOURS UNTIL ALL TAKEN 08/12/2023 Active ibuprofen (MOTRIN) 400 MG Tablet Take 400 mg by mouth. 12/04/2019 Active naloxone HCl (Narcan) 4 MG/0.1ML Liquid 07/22/2023 Act aaron rOPINIRole (REQUIP) 1 MG Tablet 07/22/2023 Active traZODone (DESYREL) 50 MG Tablet Take 50 mg by mouth daily. 08/28/2023 Active Active Problems Problem Noted Date Diagnosed Date GERD (gastroesophageal reflux disease) Seizure 09/22/2023 Restless leg syndrome 09/22/2023 HTN (hypertension) 09/22/2023 HTN (hypertension) 09/22/2023 Fentanyl dependence 09/22/2023 Tobacco abuse 09/22/2023 Opioid withdrawal 09/22/2023 Family History Medical History Relation Name Comments Anxiety disorder Mother Relation Name Status Comments Mother Social History Tobacco Use Types Packs/Day Years Used Date Smoking Tobacco: Every Day Cigarettes Smokeless Tobacco: Never Tobacco Cessation:Ready to Q uit: Not Asked; Counseling Given: Not Answered Alcohol Use Standard Drinks/Week Comments Not Currently 0 (1 standard drink = 0.6 oz pur e alcohol) Sexually Active Control Partners Comments Not Currently Sex and Gender Information Value Date Recorded Sex Assigned at Not on file Legal Sex Male 4:01 PM THEATRE DIRECTOR Gender Identity Not on file Sexual Orientation Not on file Last Filed Vital Signs Vital Sign Reading Time Taken Comments Blood Pressure 114/61 09/23/2023 8:00 AM THEATRE DIRECTOR Pulse 68 09/23/2023 8:00 AM THEATRE DIRECTOR Temperature 36.1 C (97 F) 09/23/2023 8:00 AM THEATRE DIRECTOR Respiratory Rate 20 09/23/2023 8:00 AM THEATRE DIRECTOR Oxygen Saturation 98% 09/23/2023 8:00 AM THEATRE DIRECTOR Inhaled Oxygen Concentration - - Weight 59 kg (130 lb) 09/22/2023 4:31 PM THEATRE DIRECTOR Height 165.1 cm (5' 5 ) 09/22/2023 4:31 PM THEATRE DIRECTOR Body Mass Index 21.63 09/22/2023 4:31 PM THEATRE DIRECTOR Plan of Treatment Not on file Insurance MED[place]ID [place] [id number] Advance Directives * Full Code (Latest Code Status on File) Date Activated Date Inactivated Comments 09/23/2023 4:35 PM 09/23/2023 6:41 PM CPR-Full T reatment: FULL ARREST: Attempt Resuscitation/CPR wit intubation and mechanical ventilation. PRE-ARREST: Use entire range of life support measures to stabilize the patient. Care Teams Velvet Steamer Relationship Specialty Start Date End Date Shantelle Petersen, CAN SOLDERER, RATTLE LEAK AND SQUEAK REPAIRER [address] [place] [id number] PCP - General Certified Nurse Practitioner 12/12/23
--- OUTSIDE RECORDS SUMMARY | 2024-11-25 13:31 | XMS_ITS | Clinical Summary ---
Author Organization [facility] Address [address] [place] [address] Care Team Providers Care Psychological Tests Sales Agent Name Role Phone Irma Grubbs MD Primary Care Provider [phone] Nicolasa Cevallos MD Unavailable [phone] Nicolasa Cevallos MD Unavailable [phone] Source Comments [facility],non-owned Affiliates and Associated Physician Practices is amultiple site organization consisting of ambulatory clinics and hospital sitesin [place], [place], [place] and [place]. This disclosure is being madepursuant to the Care Everywhere program and may not contain all information available regarding this patient. Last updated 18.[facility] Allergies No known active allergies Medications * [...] 63.5 kg (140 lb) 12/03/2019 8:54 PM UNIT CONTROL CLERK Height 165.1 cm (5' 5 ) 12/03/2019 8:54 PM UNIT CONTROL CLERK Body Mass Index 23.3 12/03/2019 8:54 PM UNIT CONTROL CLERK Plan of Treatment Health Maintenance Due Date Last Done Comments HIV SCREENING 2009 HEPATITIS C SCREENING 04/24/2012 PNEUMOCOCCAL VACCINE (1 of 2 - PCV) 2013 DTAP/TDAP/TD VACCINES (7 - Td or Tdap) 07/05/2018 07/05/2008, 06/04/1999, 11/18/1995, Additional history exists COVID-19 VACCINE (3 - season) 2024 2021, 04/01/2021 INFLUENZA VACCINE (#1) 2024 DEPRESSION SCREENING 10/13/2024 ZOSTER VACCINE (1 of 2) 2044 HEPATITIS B VACCINE Completed 05/23/1995, 1994, 1994 HIB VACCINE Completed 11/18/1995, 11/14, 1994, Additional history exists MENINGOCOCCAL VACCINE Aged Out 07/05/2008 No cindy herlinda eligible based on patient's age to complete this topic HPV VACCINE Aged Out No longer eligi ble based on patient's age to complete this topic MENINGOCOCCAL (Group B) VACCINE Aged Out No longer eligible based on patient's age to complete this topic Goals Goal Patient Goal Type Associated Problems Recent Progress Patient-Stated? Author Use safety retraint in car Lifestyle Izabela Tate, RN Care Teams Psychological Tests Sales Agent Relationship Specialty Start Date End Date Irma Grubbs MD [address] [place] [phone] PCP - General 12/06/19 Nicolasa Cevallos MD [address] [place] [address] PCP - Pediatrics 08/17/09 Nicolasa Cevallos MD [address] [place] [address] Pediatrics 12/06/19
--- OUTSIDE RECORDS SUMMARY | 2024-11-25 13:31 | XMS_ITS | Clinical Summary ---
Author Organization [facility] Address [address] [place] [phone] Phone Care Team Providers Care Biomathematician Name Role Phone Unavailable Primary Care Provider Unavailabl e Allergies No known active allergies Encounters Date Type Department Care Team Description 11/09/2024 External Device Data ST[facility] ABSTRACTION Provider, Abstract 11/09/2024 External Device Data ST[facility] ABSTRACTION Provider, Abstract 11/09/2024 External Device Data ST[facility] ABSTRACTION Provider, Abstract 11/03/2024 External Device Data ST[facility] ABSTRACTION Provider, Abstract 11/03/2024 External Device Data ST[facility] ABSTRACTION Provider, Abstract 10/26/2024 External Device Data STL ABSTRACTION Provider, Abstract from Last 3 Months Social History Tobacco Use Types Packs/Day Years Used Date Smoking Tobacco: Never Assessed Feeling Safe Answer Date Recorded Are you in a relationship wi th someone who hurts you emotionally and/or physically? No 05/27/2024 Sex and Gender Information Value Date Recorded Sex Assigned at Not on file Legal Sex Male 1:49 PM CDT Gender Identity Not on file Sexual Orientation Not on file Last Filed Vital Signs Vital Sign Reading Time Taken Comments Blood Pressure 110/80 05/27/2024 3:21 PM CDT Pulse - - Temperature 36.6 C (97.9 F) 05/27/2024 1:50 PM CDT Respiratory Rate 16 05/27/2024 3:21 PM CDT Oxygen Saturation 96% 05/27/2024 3:21 PM CDT Inhaled Oxygen Concentration - - Weight 59 kg (130 lb) 05/27/2024 1:50 PM CDT Height 165.1 cm (5' 5 ) 05/27/2024 1:50 PM CDT Body Mass Index 21.63 05/27/2024 1:50 PM CDT Plan of Treatment Health Maintenance Due Date Last Done Comments INFLUENZA VACCINE (#1) 2024 DTAP/TDAP/TD VACCINES (10 - Td or Tdap) 08/28/2033 08/28/2023, 07/29/2022, 02/12/2016, Additional history exists HEPATITIS B VACCINES Completed 05/23/1995, 1994, 1994 HPV VACCINES Aged Out No longer eligi ble based on patient's age to complete this topic PNEUMOCOCCAL VACCINE 0-64 YEARS Aged Out No longer eligible based on patient's age to complete this topic [place] [address] [place] [address]
--- OUTSIDE RECORDS SUMMARY | 2024-11-25 13:31 | XMS_ITS | Patient Health Record ---
Author Organization [facility] Address [address] [place] [address] Care Team Providers Care Sales Support Manager Name Role Phone Ignacio Bell Primary Care Provider Manjeet Donato Unavailable [phone] Jacoby Poe Unavailable [phone] Lilliana Salgado Unavailable [phone] Cristina Myles Unavailable [phone] Allergies No Known Allergies Results Component Value Reference Range Notes 12 Panel Urine Drug Screen Reviewed date:04/02/2024 09:36:59 AM Interpretation: Performing Lab: Notes/Report: THC POS RUTH neg MOP (OPI) neg AMP neg MET neg BAR neg BZO neg MDMA neg MTD neg OXY neg PCP neg BUP POS 12 Panel Urine Drug Screen Reviewed date:01/16/2024 11:04:52 AM Interpretation: Performing Lab: Notes/Report: THC POS RUTH neg MOP (OPI) neg AMP neg MET neg BAR neg BZO neg MDMA neg MTD neg OXY neg PCP neg BUP POS Buprenorphine and Metabolite (Urine test) Reviewed date:01/13/2024 07:05:43 AM Interpretation:Normal Performing Lab:[facility], [address] [facility], [facility], Phone - [phone], Director - PhDAbudu Notes/Report: Clinical Information:[id number] Buprenorphine Positive Confirmation p erformed by Mass Spectrometry Buprenorphine Positive Buprenorphine Conf, MS, UR 366 Cutoff=10 ng/m L Norbuprenorphine Positive Norbuprenorphine Conf, MS, UR 639 Cutoff=10 ng/mL 12 Panel Urine Drug Screen Reviewed date:01/06/2024 11:07:35 AM Interpretation: Performing Lab: Notes/Report: THC POS RTUH neg MOP (OPI) neg AMP neg MET neg BAR neg BZO neg MDMA neg MTD neg OXY neg PCP neg BUP POS 12 Panel Urine Drug Screen Reviewed date:03/10/2024 10:00:38 AM Interpretation: Performing Lab: Notes/Report: THC POS RUTH neg MOP (OPI) neg AMP neg MET neg BAR neg BZO neg MDMA neg MTD neg OXY neg PCP neg BUP POS 12 Panel Urine Drug Screen Reviewed date:05/05/2024 09:51:56 AM Interpretation: Performing Lab: Notes/Report: THC POS RUTH POS MOP (OPI) neg AMP neg MET neg BAR neg BZO neg MDMA neg MTD neg OXY neg PCP neg BUP POS 12 Panel Urine Drug Screen Reviewed date:09/10/2024 10:24:34 AM Interpretation: Performing Lab: Notes/Report: THC POS RUTH NEG MOP (OPI) NEG AMP NEG MET NEG BAR NEG BZO NEG MDMA NEG MTD NEG OXY NEG PCP NEG BUP POS 12 Panel Urine Drug Screen Reviewed date:02/16/2024 08:17:58 AM Interpretation: Performing Lab: Notes/Report: THC POS RUTH neg MOP (OPI) neg AMP neg MET neg BAR neg BZO neg MDMA neg MTD neg OXY neg PCP neg BUP POS Fentanyl Confirmation, Ur Reviewed date:05/11/2024 01:09:59 PM Interpretation: Performing Lab:[facility], [address] [place] [address], Phone - [phone], Director - [place] Notes/Report: [phone]. Barley Steeper Letha Lin MD. [address], [address]. -Technical component - Data analysis performed at [facility], [employer] FLEX or MAT drug testing: FENTANYL / ANALOGUES Negative Fentanyl Not Detected Norfentanyl Not Detected Testing Threshold: fentanyl, 1.0 ng/mL; others, 5 ng/mL This test was developed and its performance characteristics determined by [facility]. It has not been cleared or approved by the Food and Drug Administration. 12 Panel Urine Drug Screen Reviewed date:10/11/2024 01:22:06 PM Interpretation: Performing Lab: Notes/Report: THC POS RUTH neg MOP (OPI) neg AMP neg MET neg BAR neg BZO neg MDMA neg MTD neg OXY neg PCP neg BUP POS Buprenorphine and Metabolite (Urine test) Reviewed date:10/18/2024 08:57:32 AM Interpretation: Performing Lab:[facility], [address], [place], Phone - [phone], Director - PhDAbudu Notes/Report: Clinical Information:[id number] LM Buprenorphine Positive Confirmation p erformed by Mass Spectrometry Buprenorphine Positive Buprenorphine Conf, MS, UR 429 Cutoff=10 ng/m L Norbuprenorphine Positive Norbuprenorphine Conf, MS, UR 802 Cutoff=10 ng/mL Written Authorization Reviewed date:01/20/2024 11:35:57 AM Interpretation: Performing Lab:[facility], [address] [place] [address], Phone - [phone], Director - [place] Notes/Report: Written Authorization Written Authorization Received. Authorization received from JENNY LACY 01-01-2024 Logged by Kristi Willoughby PDF Report Reviewed date:01/20/2024 11:35:57 AM Interpretation: Performing Lab:[facility], [address] [place] [address], Phone - [phone], Director - [place] Notes/Report: PDF Report1 [facility] Comprehensive Drug Analysis, Urine Reviewed date:01/20/2024 11:35:57 AM Interpretation:Abnormal Performing Lab:[facility], [address] [place] [address], Phone - [phone], Director - [place] Notes/Report: Summary Report (Summary) FINAL ======== COMPREHENSIVE DRUG ANALYSIS,UR ======== Test Result Flag Units Drug Present Cocaine 175 ng/mg creat Benzoylecgonine >2688 ng/mg creat Source of cocaine is most commonly illicit, but cocaine is present in some topical anesthetic solutions. Benzoylecgonine is an expected metabolite of cocaine. Carboxy-THC 199 ng/mg creat Carboxy-THC is a metabolite of tetrahydrocannabinol (THC). Source of THC is most commonly herbal marijuana or marijuana-based products, but THC is also present in a scheduled prescription medication. Trace amounts of THC can be present in hemp and cannabidiol (CBD) products. This test is not intended to distinguish between ojmgw-4-kbemsfjrjjzjxinmghtq, the predominant form of THC in most herbal or marijuana-based products, and geove-4-znlldcltkmygfebcojdr. Buprenorphine 6 ng/mg creat Norbuprenorphine 7 ng/mg creat Source of buprenorphine is a scheduled prescription medication. Norbuprenorphine is an expected metabolite of buprenorphine. Fentanyl 67 ng/mg creat Norfentanyl >538 ng/mg creat Source of fentanyl is a scheduled prescription medication, including IV, patch, and transmucosal formulations. Norfentanyl is an expected metabolite of fentanyl. Ibuprofen PRESENT Diphenhydramine PRESENT Hydroxyzine PRESENT ======== Test Result Flag Units Ref Range Creatinine 186 mg/dL >=20 ======== For clinical consultation, please call . ======== PDF . 12 Panel Urine Drug Screen Reviewed date:06/28/2024 10:31:10 AM Interpretation: Performing Lab: Notes/Report: THC POS RUTH neg MOP (OPI) neg AMP neg MET neg BAR neg BZO neg MDMA neg MTD neg OXY neg PCP neg BUP POS 12 Panel Urine Drug Screen Reviewed date:06/10/2024 10:13:31 AM Interpretation: Performing Lab: Notes/Report: THC POS RUTH POS MOP (OPI) neg AMP neg MET neg BAR neg BZO neg MDMA neg MTD neg OXY neg PCP neg BUP POS 12 Panel Urine Drug Screen Reviewed date:12/30/2023 09:39:59 AM Interpretation: Performing Lab: Notes/Report: THC POS RUTH POS MOP (OPI) neg AMP neg MET neg BAR neg BZO neg MDMA neg MTD neg OXY neg PCP neg BUP neg 12 Panel Urine Drug Screen Reviewed date:08/09/2024 09:34:08 AM Interpretation: Performing Lab: Notes/Report: THC POS RUTH neg MOP (OPI) neg AMP neg MET neg BAR neg BZO neg MDMA neg MTD neg OXY neg PCP neg BUP POS Urine Culture,Comprehensive Reviewed date:01/01/2024 11:20:13 AM Interpretation: Performing Lab:[facility], [address] [place] [address], Phone - [phone], Director - Jeanette Notes/Report: Urine Culture,Comprehensive Final report Result 1 Mixed urogenital barbara 600 Colonies/mL Verbal Order Reviewed date:01/06/2024 12:26:16 PM Interpretation: Performing Lab:[facility], [address] [place] [address], Phone - [phone], Director - Jeanette Notes/Report: See below: Comment: Please provide requested information and fax to . . The [place] Code of Federal Regulations requires a written and signed request be forwarded to a laboratory following a verbal order of a laboratory test. Please assist us to meet this requirement and to complete our records. . Date: Diagnosis code(s) provided for this order: F11.99 . Additional Diagnosis Code(s): Please Print . ICD-9/10 Diagnosis Code(s): . Physician or Authorized Designee: Please Print . Physician or Authorized Designee Signature: . Your Signature Confirms Your Order Of The Test(s) Listed . Additional Test(s) Requested Comment: Test(s) added per Jenny Lacy at account 01-01-2024 Logged by Codie Licona Test# [id number] Comprehensive Drug Analysis,Ur Test# [id number] Sent to Reference Lab 12 Panel Urine Drug Screen Reviewed date:07/12/2024 09:36:23 AM Interpretation: Performing Lab: Notes/Report: THC POS RUTH neg MOP (OPI) neg AMP neg MET neg BAR neg BZO neg MDMA neg MTD neg OXY neg PCP neg BUP POS Buprenorphine and Metabolite (Urine test) Reviewed date:04/07/2024 10:48:34 AM Interpretation: Performing Lab:[facility], [address], [place], Phone - [phone], Director - PhDAbudu Notes/Report: Clinical Information:[id number] Buprenorphine Positive Confirmation p erformed by Mass Spectrometry Buprenorphine Positive Buprenorphine Conf, MS, UR 261 Cutoff=10 ng/m L Norbuprenorphine Positive Norbuprenorphine Conf, MS, UR >2000 Cutoff=10 ng/mL Reason For Referral No Information Medications Medication SIG (Take, Route, Frequency, Duration) Notes Start Date End Date Status Buprenorphine HCl-Naloxone HCl 8-2 MG 1 film under the tongue and allow to dissolve Sublingual Twice a day for 30 days 10/11/2024 Active Naloxone HCl 4 MG/0.1ML as directed Nasally FOR OPIOID OVERDOSE 06/28/2024 Active hydrOXYzine HCl 50 MG 1 tablet as needed Orally Once a day for 30 days Active Social History Tobacco Use: Social History Observation Description Date Details (start date - stop date) Current Smoker NA - NA Sex Assigned At : Social History Observation Description Sex Assigned At Male PRAPARE Question Answer Notes Date Completed/Updated: 06/10/2024 What is your current housing situation? I have h ousing Are you worried about losing your housing? No What is the highest level of school that you have finished? 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 Check all that apply I do not have problems meeting my needs Has lack of transportation k ept you from medical appointments, meetings, work or from getting things needed for daily living? No How often do you see or talk to people that you care about and feel close to? (For example: talking to friends on the phone, visiting friends or family, going to rastafarian or club meetings) 3 to 5 times a week How stressed are you? Stress is when someone feels tense, nervous, anxious, or can\t sleep at night because their mind is troubled Very much In the past year have you sp ent more than 2 nights in a row in a detention, jail, shelter center, or juvenile correctional facility? No Are you a refugee? No What country are you from? [place] Do you feel physically and e motionally safe where you currently live? Yes In the past year, have you b een afraid of your partner or ex-partner? No PRAPARE Score: 3 Tobacco Control (Standard) Question Answer Notes Tobacco use: Current smoker Problems Problem Type SNOMED Code ICD Code Onset Dates Problem Status W/U Status Risk Notes Problem Tobacco user (450181506) Nicotine dependence, unspecified, uncomplicated (F17.200) Active confirmed Problem Tobacco use (832859258) Tobacco use disorder (F17.200) Active confirmed Problem Mental disorder caused by drug (135904420) Opioid use disorder (F11.99) Active confirmed Vital Signs Heart Rate 76 /min 10/11/2024 Temperature 98.6 degrees Fahrenheit 10/11/2024 Respiratory Rate 16 /min 10/11/2024 Blood pressure diastolic 80 mm Hg 10/11/2024 Oximetry 97 % 10/11/2024 Height 65 in 10/11/2024 Blood pressure systolic 112 mm Hg 10/11/2024 Weight 129.0 lbs 10/11/2024 BMI 21.46 kg/m2 10/11/2024 Encounters Encounter Location Date Provider Diagnosis [address] [place] [address] 01/16/2024 Ignacio Bell [address] [place] [address] 05/05/2024 Manjeet Donato Contact with and (suspected) exposure to other communicable diseases Z20.[address] [place] [address] 07/28/2024 Cristina Myles Opioid use disorder F11.[address] [place] [address] 06/10/2024 Lilliana Sanftlegladys [address] [place] [address] 05/05/2024 Lilliana Sanftlen [address] [place] [address] [facility] [address] [place] [address] 01/06/2024 Lilliana Sanftleben [address] [place] [address] 01/16/2024 Lilliana Sanftleben [address] [place] [address] 02/16/2024 Lilliana Sanftleben [address] [place] [address] 03/10/2024 Lilliana Sanftlen [address] [place] [address] 04/02/2024 Lilliana Sanftlen [facility] [address] [address] 12/30/2023 Jenia Heavens Opioid use disorder F11.99 and Tobacco use disorder F17.[address] [address] 01/16/2024 Jenia Heavens Opioid use disorder F11.99 and Tobacco use disorder F17.[address] [place] [address] 01/06/2024 Jenia Heavens Opioid use disorder F11.99 and Tobacco use disorder F17.[address] [place] [address] 05/05/2024 Cristina Szlufik Opioid use disorder F11.99 and Nicotine dependence, unspecified, uncomplicated F17.[address] [address] 04/02/2024 Jacoby Poe Opioid use disorder F11.99 and Nicotine dependence, unspecified, uncomplicated F17.[address] [address] 03/10/2024 Cristina Szlufik Opioid use disorder F11.99 and Nicotine dependence, unspecified, uncomplicated F17.[address] [address] 02/16/2024 Cristina Szlufik Opioid use disorder F11.99 and Nicotine dependence, unspecified, uncomplicated F17.[address] [address] 06/10/2024 Cristina Szlufik Opioid use disorder F11.99 and Nicotine dependence, unspecified, uncomplicated F17.[address] [address] 06/28/2024 Cristina Szlufik Opioid use disorder F11.99 and Nicotine dependence, unspecified, uncomplicated F17.[address] [address] 07/12/2024 Cristina Alisonlufik Opioid use disorder F11.99 and Nicotine dependence, unspecified, uncomplicated F17.[address] [address] 08/09/2024 Cristina Alisonlufik Opioid use disorder F11.99 and Nicotine dependence, unspecified, uncomplicated F17.[address] [address] 09/10/2024 Jacoby Poe Opioid use disorder F11.99 and Nicotine dependence, unspecified, uncomplicated F17.[address] [address] 10/11/2024 Cristina Alisonlufik Opioid use disorder F11.99 Assessments Encounter Date Diagnosis (ICD Code) Assessment Notes Treatment Notes Treatment Clinical Notes Section Notes 12/30/2023 Tobacco use disorder (ICD-10 - F17.200) 12/30/2023 Opioid use disorder (ICD-10 - F11.99) 02/16/2024 Nicotine dependence, unspecified, uncomplicated (ICD-10 - F17.200) 02/16/2024 Opioid use disorder (ICD-10 - F11.99) 03/10/2024 Nicotine dependence, unspecified, uncomplicated (ICD-10 - F17.200) 03/10/2024 Opioid use disorder (ICD-10 - F11.99) 05/05/2024 Contact with and (suspected) exposure to other communicable diseases (ICD-10 - Z20.89) Patient Educated with: HIV testing Care Instructions.pdf (HIV testing Care Instructions.pdf) 05/05/2024 Nicotine dependence, unspecified, uncomplicated (ICD-10 - F17.200) 05/05/2024 Opioid use disorder (ICD-10 - F11.99) 07/12/2024 Nicotine dependence, unspecified, uncomplicated (ICD-10 - F17.200) 07/12/2024 Opioid use disorder (ICD-10 - F11.99) No prescription sent today. Patient has several films left over. Will refill at next follow-up. 07/28/2024 Opioid use disorder (ICD-10 - F11.99) 10/11/2024 Opioid use disorder (ICD-10 - F11.99) Patient agrees to take medication as prescribed. Discussed medication side effects, adverse effects, risks, benefits, as well as interactions. Encouraged non-use of opioids and other illicit substances. Has naloxone. Discontinuing buprenorphine increases the risk of overdose upon return to illicit opioid use. Use of alcohol or benzodiazepines with buprenorphine increases the risk of overdose and . Education provided about safe storage of medications. Encouraged participation in recovery groups/counseling services. Contact office with questions or concerns. 09/10/2024 Nicotine dependence, unspecified, uncomplicated (ICD-10 - F17.200) 09/10/2024 Opioid use disorder (ICD-10 - F11.99) 08/09/2024 Nicotine dependence, unspecified, uncomplicated (ICD-10 - F17.200) 08/09/2024 Opioid use disorder (ICD-10 - F11.99) 06/28/2024 Opioid use disorder (ICD-10 - F11.99) 06/10/2024 Nicotine dependence, unspecified, uncomplicated (ICD-10 - F17.200) 06/10/2024 Opioid use disorder (ICD-10 - F11.99) 04/02/2024 Nicotine dependence, unspecified, uncomplicated (ICD-10 - F17.200) 04/02/2024 Opioid use disorder (ICD-10 - F11.99) 01/16/2024 Tobacco use disorder (ICD-10 - F17.200) 01/16/2024 Opioid use disorder (ICD-10 - F11.99) 01/06/2024 Tobacco use disorder (ICD-10 - F17.200) 01/06/2024 Opioid use disorder (ICD-10 - F11.99) 06/28/2024 Nicotine dependence, unspecified, uncomplicated (ICD-10 - F17.200) 12/30/2023 Other Client agrees to take medication as prescribed. Discussed medication side effects, adverse effects, risks, benefits, as well as interactions. Encouraged non-use of opioids. Has naloxone. Recommended participation in recovery groups/counseling services. May contact office with questions or concerns. 12/30/2023 Other Provided case management services to address social determinants of health needs and reduce barriers to health care services. 01/06/2024 Other Client agrees to take medication as prescribed. Discussed medication side effects, adverse effects, risks, benefits, as well as interactions. Encouraged non-use of opioids. Has naloxone. Recommended participation in recovery groups/counseling services. May contact office with questions or concerns. 01/06/2024 Other Provided case management services to address social determinants of health needs and reduce barriers to health care services. 01/16/2024 Other Client agrees to take medication as prescribed. Discussed medication side effects, adverse effects, risks, benefits, as well as interactions. Encouraged non-use of opioids. Has naloxone. Recommended participation in recovery groups/counseling services. Agrees to contact office with questions or concerns. 01/16/2024 Other Provided case management services to address social determinants of health needs and reduce barriers to health care services. 02/16/2024 Other Client agrees to take medication as prescribed. Discussed medication side effects, adverse effects, risks, benefits, as well as interactions. Encouraged non-use of opioids and other illicit substances. Has naloxone. Understand that discontinuing buprenorphine increases the risk of overdose upon return to illicit opioid use. Know that that use of alcohol or benzodiazepines with buprenorphine increases the risk of overdose and . Education provided about safe storage of medications. Encourage participation in recovery groups/counseling services. Contact office with questions or concerns. 02/16/2024 Other Provided case management services to address social determinants of health needs and reduce barriers to health care services. 03/10/2024 Other Client agrees to take medication as prescribed. Discussed medication side effects, adverse effects, risks, benefits, as well as interactions. Encouraged non-use of opioids and other illicit substances. Has naloxone. Understand that discontinuing buprenorphine increases the risk of overdose upon return to illicit opioid use. Know that that use of alcohol or benzodiazepines with buprenorphine increases the risk of overdose and . Education provided about safe storage of medications. Encourage participation in recovery groups/counseling services. Contact office with questions or concerns. 03/10/2024 Other Provided case management services to address social determinants of health needs and reduce barriers to health care services. 04/02/2024 Other Potential side effects of buprenorphine discussed, as well as taking buprenorphine as prescribed. Dangers of using other controlled substances (prescribed or illegal/including benzodiazepines) with buprenorphine discussed. Patient understands taking other narcotics with buprenorphine could lead to respiratory distress and even . Patient understands that ALL treating providers/physician s should be informed of buprenorphine use as part of a Medication Assisted Treatment program 04/02/2024 Other Provided case management services to address social determinants of health needs and reduce barriers to health care services. 05/05/2024 Other Client agrees to take medication as prescribed. Discussed medication side effects, adverse effects, risks, benefits, as well as interactions. Encouraged non-use of opioids and other illicit substances. Has naloxone. Understand that discontinuing buprenorphine increases the risk of overdose upon return to illicit opioid use. Know that that use of alcohol or benzodiazepines with buprenorphine increases the risk of overdose and . Education provided about safe storage of medications. Encourage participation in recovery groups/counseling services. Patient understands that all treating providers/physician s should be informed of buprenorphine use as part of a Medication Assisted Recovery program. Contact office with questions or concerns. 05/05/2024 Other Provided case management services to address social determinants of health needs and reduce barriers to health care services. 06/10/2024 Other Client agrees to take medication as prescribed. Discussed medication side effects, adverse effects, risks, benefits, as well as interactions. Encouraged non-use of opioids and other illicit substances. Has naloxone. Understand that discontinuing buprenorphine increases the risk of overdose upon return to illicit opioid use. Know that that use of alcohol or benzodiazepines with buprenorphine increases the risk of overdose and . Education provided about safe storage of medications. Encourage participation in recovery groups/counseling services. Patient understands that all treating providers/physician s should be informed of buprenorphine use as part of a Medication Assisted Recovery program. Contact office with questions or concerns. 06/10/2024 Other Provided case management services to address social determinants of health needs and reduce barriers to health care services. 07/12/2024 Other Client agrees to take medication as prescribed. Discussed medication side effects, adverse effects, risks, benefits, as well as interactions. Encouraged non-use of opioids and other illicit substances. Has naloxone. Understand that discontinuing buprenorphine increases the risk of overdose upon return to illicit opioid use. Know that that use of alcohol or benzodiazepines with buprenorphine increases the risk of overdose and . Education provided about safe storage of medications. Encourage participation in recovery groups/counseling services. Patient understands that all treating providers should be informed of buprenorphine use as part of a Medication Assisted Recovery program. Contact office with questions or concerns. 08/09/2024 Other Client agrees to take medication as prescribed. Discussed medication side effects, adverse effects, risks, benefits, as well as interactions. Encouraged non-use of opioids and other illicit substances. Has naloxone. Discontinuing buprenorphine increases the risk of overdose upon return to illicit opioid use. Use of alcohol or benzodiazepines with buprenorphine increases the risk of overdose and . Education provided about safe storage of medications. Encouraged participation in recovery groups/counseling services. Contact office with questions or concerns. 09/10/2024 Other Potential side effects of buprenorphine discussed, as well as taking buprenorphine as prescribed. Dangers of using other controlled substances (prescribed or illegal/including benzodiazepines) with buprenorphine discussed. Patient understands taking other narcotics with buprenorphine could lead to respiratory distress and even . Patient understands that ALL treating providers/physician s should be informed of buprenorphine use as part of a Medication Assisted Treatment program 06/28/2024 Other Client agrees to take medication as prescribed. Discussed medication side effects, adverse effects, risks, benefits, as well as interactions. Encouraged non-use of opioids and other illicit substances. Has naloxone. Understand that discontinuing buprenorphine increases the risk of overdose upon return to illicit opioid use. Know that that use of alcohol or benzodiazepines with buprenorphine increases the risk of overdose and . Education provided about safe storage of medications. Encourage participation in recovery groups/counseling services. Patient understands that all treating providers should be informed of buprenorphine use as part of a Medication Assisted Recovery program. Contact office with questions or concerns. Plan Of Treatment No Information Insurance Providers Payer Name Payer Address Payer Phone Subscriber Number Group Number Insured Name Patient Relationship to Insured Coverage Start Date Coverage End Date [facility] [address] [place] [address] [id number] Lucius Pascal Self - patient is the insured 3 MEDICAID [address] [facility] [place] [address] [id number] Lucius Pascal Self - patient is the insured 3 Medical (General) History Medical History History ICD Code Opioid Use Disorder Surgical History Surgery Date(Month/Year) Appendectomy 2013 Hospitalization History Reason Date(Month/Year) Detox x1
--- OUTSIDE RECORDS SUMMARY | 2024-11-25 13:31 | XMS_ITS | Patient Health Summary ---
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 height without evidence of acute fracture. The intervertebral discs appear normal. No central canal stenosis is seen. The facets appear normal. No neural foraminal stenosis is seen. No soft tissue abnormality is identified. Procedure Note Bladimir Conway MD - 12/04/2019 EXAMINATION: 1. Computed tomography (CT) of the head without contrast 2. CT of the maxillofacial bones, orbits, and paranasal sinuses without contrast 3. CT of the cervical spine without contrast 4. CT of the thoracic spine without contrast 5. CT of the lumbar spine without contrast HISTORY: R51: Facial pain S80.212A: Abrasion of left knee, initial encounter TECHNIQUE: CT of the head, cervical spine, and maxillofacial bones, orbits, and paranasal sinuses was performed without contrast accordingto standard protocol. Reformatted axial, sagittal, and coronal images ofthe thoracic and lumbar spine were obtained by the technologist from a concurrently performed body CT and sent to the workstation for review. COMPARISON: None FINDINGS: Head: No acute intra- or extra-axial fluid collections are identified. The ventricles are of normal size, shape, and morphology. The basilarcisterns are patent. No mass effect or midline shift is seen. The norton-whitematter differentiation is normal. No acute calvarial fracture is identified. Maxillofacial: There is a right-sided lamina papyracea fracture, which appears to be chronic. There is scattered opacification in the ethmoid air cells with small volume fluid in the frontal sinuses, representing hemorrhage. The hard palate, mandible, and temporomandibular joints appear normal. No additional facial bone fractures are identified. The mastoid air cellsare clear. No soft tissue abnormality is identified. Cervical spine: There is gentle cervical kyphosis. Vertebral bodies are normal in height without evidence of acute fracture. The craniocervical junction isnormal. The intervertebral discs appear normal. No central canal stenosis isseen. The facets appear normal. The uncovertebral joints appear normal. No neural foraminal stenosis is seen. No soft tissue abnormality is identified. Thoracic spine: The alignment is normal. Vertebral bodies are normal in height without evidence of acute fracture. Schmorl's nodes are present at multiple levels. No central canal stenosis is seen. The facets appear normal. No neural foraminal stenosis is seen. There is subsegmental atelectasis in the dependent portions of the lung bases. Lumbar spine: The alignment is normal. Vertebral bodies are normal in height without evidence of acute fracture. The intervertebral discs appear normal. No central canal stenosis is seen. The facets appear normal. No neural foraminal stenosis is seen. No soft tissue abnormality is identified. IMPRESSION: 1. No acute intracranial process. 2. 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 3. No evidence of acute fracture in the cervical, thoracic, or lumbar spine. Dictated by Chris Bentley MD (university president)[id number] Dr. BLADIMIR Villaseñor M.D. have personally reviewed and interpreted this examination/study. This report was electronically signed by BLADIMIR CONWAY M.D. on 12/04/2019 11:14 AM . Mauricio Hubbard MD CT ORDERABLES * CT CERVICAL SPINE WO CONTRAST (12/03/2019 11:09 PM [employer]) Anatomical Region Laterality Modality Spine Computed Tomogra phy 12/03/2019 11:1 3 PM [employer] Impressions 12/04/2019 11:14 AM [employer] IMPRESSION: 1. No acute intracranial process. 2. 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 3. No evidence of acute fracture in the cervical, thoracic, or lumbar spine. Dictated by Chris Bentley MD (university president)[id number] Dr. BLADIMIR Villaseñor M.D. have personally reviewed and interpreted this examination/study. This report was electronically signed by BLADIMIR CONWAY M.D. on 12/04/2019 11:14 AM . Narrative 12/04/2019 11:14 AM [employer] EXAMINATION: 1. Computed tomography (CT) of the head without contrast 2. CT of the maxillofacial bones, orbits, and paranasal sinuses without contrast 3. CT of the cervical spine without contrast 4. CT of the thoracic spine without contrast 5. CT of the lumbar spine without contrast HISTORY: R51: Facial pain S80.212A: Abrasion of left knee, initial encounter TECHNIQUE: CT of the head, cervical spine, and maxillofacial bones, orbits, and paranasal sinuses was performed without contrast according to standard protocol. Reformatted axial, sagittal, and coronal images of the thoracic and lumbar spine were obtained by the technologist from a concurrently performed body CT and sent to the workstation for review. COMPARISON: None FINDINGS: Head: No acute intra- or extra-axial fluid collections are identified. The ventricles are of normal size, shape, and morphology. The basilar cisterns are patent. No mass effect or midline shift is seen. The norton-white matter differentiation is normal. No acute calvarial fracture is identified. Maxillofacial: There is a right-sided lamina papyracea fracture, which appears to be chronic. There is scattered opacification in the ethmoid air cells with small volume fluid in the frontal sinuses, representing hemorrhage. The hard palate, mandible, and temporomandibular joints appear normal. No additional facial bone fractures are identified. The mastoid air cells are clear. No soft tissue abnormality is identified. Cervical spine: There is gentle cervical kyphosis. Vertebral bodies are normal in height without evidence of acute fracture. The craniocervical junction is normal. The intervertebral discs appear normal. No central canal stenosis is seen. The facets appear normal. The uncovertebral joints appear normal. No neural foraminal stenosis is seen. No soft tissue abnormality is identified. Thoracic spine: The alignment is normal. Vertebral bodies are normal in height without evidence of acute fracture. Schmorl's nodes are present at multiple levels. No central canal stenosis is seen. The facets appear normal. No neural foraminal stenosis is seen. There is subsegmental atelectasis in the dependent portions of the lung bases. Lumbar spine: The alignment is normal. Vertebral bodies are normal in height without evidence of acute fracture. The intervertebral discs appear normal. No central canal stenosis is seen. The facets appear normal. No neural foraminal stenosis is seen. No soft tissue abnormality is identified. Procedure Note Bladimir Conway MD - 12/04/2019 EXAMINATION: 1. Computed tomography (CT) of the head without contrast 2. CT of the maxillofacial bones, orbits, and paranasal sinuses without contrast 3. CT of the cervical spine without contrast 4. CT of the thoracic spine without contrast 5. CT of the lumbar spine without contrast HISTORY: R51: Facial pain S80.212A: Abrasion of left knee, initial encounter TECHNIQUE: CT of the head, cervical spine, and maxillofacial bones, orbits, and paranasal sinuses was performed without contrast accordingto standard protocol. Reformatted axial, sagittal, and coronal images ofthe thoracic and lumbar spine were obtained by the technologist from a concurrently performed body CT and sent to the workstation for review. COMPARISON: None FINDINGS: Head: No acute intra- or extra-axial fluid collections are identified. The ventricles are of normal size, shape, and morphology. The basilarcisterns are patent. No mass effect or midline shift is seen. The norton-whitematter differentiation is normal. No acute calvarial fracture is identified. Maxillofacial: There is a right-sided lamina papyracea fracture, which appears to be chronic. There is scattered opacification in the ethmoid air cells with small volume fluid in the frontal sinuses, representing hemorrhage. The hard palate, mandible, and temporomandibular joints appear normal. No additional facial bone fractures are identified. The mastoid air cellsare clear. No soft tissue abnormality is identified. Cervical spine: There is gentle cervical kyphosis. Vertebral bodies are normal in height without evidence of acute fracture. The craniocervical junction isnormal. The intervertebral discs appear normal. No central canal stenosis isseen. The facets appear normal. The uncovertebral joints appear normal. No neural foraminal stenosis is seen. No soft tissue abnormality is identified. Thoracic spine: The alignment is normal. Vertebral bodies are normal in height without evidence of acute fracture. Schmorl's nodes are present at multiple levels. No central canal stenosis is seen. The facets appear normal. No neural foraminal stenosis is seen. There is subsegmental atelectasis in the dependent portions of the lung bases. Lumbar spine: The alignment is normal. Vertebral bodies are normal in height without evidence of acute fracture. The intervertebral discs appear normal. No central canal stenosis is seen. The facets appear normal. No neural foraminal stenosis is seen. No soft tissue abnormality is identified. IMPRESSION: 1. No acute intracranial process. 2. 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 3. No evidence of acute fracture in the cervical, thoracic, or lumbar spine. Dictated by Chris Bentley MD (university president)[id number] Dr. BLADIMIR Villaseñor M.D. have personally reviewed and interpreted this examination/study. This report was electronically signed by BLADIMIR CONWAY M.D. on 12/04/2019 11:14 AM . Mauricio Hubbard MD CT ORDERABLES * CT FACIAL BONES WO CONTRAST (12/03/2019 11:09 PM [employer]) Anatomical Region Laterality Modality Head Computed Tomogra phy 12/03/2019 11:1 3 PM [employer] Impressions 12/04/2019 11:14 AM [employer] IMPRESSION: 1. No acute intracranial process. 2. 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 3. No evidence of acute fracture in the cervical, thoracic, or lumbar spine. Dictated by Chris Bentley MD (university president)[id number] Dr. BLADIMIR Villaseñor M.D. have personally reviewed and interpreted this examination/study. This report was electronically signed by BLADIMIR CONWAY M.D. on 12/04/2019 11:14 AM . Narrative 12/04/2019 11:14 AM [employer] EXAMINATION: 1. Computed tomography (CT) of the head without contrast 2. CT of the maxillofacial bones, orbits, and paranasal sinuses without contrast 3. CT of the cervical spine without contrast 4. CT of the thoracic spine without contrast 5. CT of the lumbar spine without contrast HISTORY: R51: Facial pain S80.212A: Abrasion of left knee, initial encounter TECHNIQUE: CT of the head, cervical spine, and maxillofacial bones, orbits, and paranasal sinuses was performed without contrast according to standard protocol. Reformatted axial, sagittal, and coronal images of the thoracic and lumbar spine were obtained by the technologist from a concurrently performed body CT and sent to the workstation for review. COMPARISON: None FINDINGS: Head: No acute intra- or extra-axial fluid collections are identified. The ventricles are of normal size, shape, and morphology. The basilar cisterns are patent. No mass effect or midline shift is seen. The norton-white matter differentiation is normal. No acute calvarial fracture is identified. Maxillofacial: There is a right-sided lamina papyracea fracture, which appears to be chronic. There is scattered opacification in the ethmoid air cells with small volume fluid in the frontal sinuses, representing hemorrhage. The hard palate, mandible, and temporomandibular joints appear normal. No additional facial bone fractures are identified. The mastoid air cells are clear. No soft tissue abnormality is identified. Cervical spine: There is gentle cervical kyphosis. Vertebral bodies are normal in height without evidence of acute fracture. The craniocervical junction is normal. The intervertebral discs appear normal. No central canal stenosis is seen. The facets appear normal. The uncovertebral joints appear normal. No neural foraminal stenosis is seen. No soft tissue abnormality is identified. Thoracic spine: The alignment is normal. Vertebral bodies are normal in height without evidence of acute fracture. Schmorl's nodes are present at multiple levels. No central canal stenosis is seen. The facets appear normal. No neural foraminal stenosis is seen. There is subsegmental atelectasis in the dependent portions of the lung bases. Lumbar spine: The alignment is normal. Vertebral bodies are normal in height without evidence of acute fracture. The intervertebral discs appear normal. No central canal stenosis is seen. The facets appear normal. No neural foraminal stenosis is seen. No soft tissue abnormality is identified. Procedure Note Bladimir Conway MD - 12/04/2019 EXAMINATION: 1. Computed tomography (CT) of the head without contrast 2. CT of the maxillofacial bones, orbits, and paranasal sinuses without contrast 3. CT of the cervical spine without contrast 4. CT of the thoracic spine without contrast 5. CT of the lumbar spine without contrast HISTORY: R51: Facial pain S80.212A: Abrasion of left knee, initial encounter TECHNIQUE: CT of the head, cervical spine, and maxillofacial bones, orbits, and paranasal sinuses was performed without contrast accordingto standard protocol. Reformatted axial, sagittal, and coronal images ofthe thoracic and lumbar spine were obtained by the technologist from a concurrently performed body CT and sent to the workstation for review. COMPARISON: None FINDINGS: Head: No acute intra- or extra-axial fluid collections are identified. The ventricles are of normal size, shape, and morphology. The basilarcisterns are patent. No mass effect or midline shift is seen. The norton-whitematter differentiation is normal. No acute calvarial fracture is identified. Maxillofacial: There is a right-sided lamina papyracea fracture, which appears to be chronic. There is scattered opacification in the ethmoid air cells with small volume fluid in the frontal sinuses, representing hemorrhage. The hard palate, mandible, and temporomandibular joints appear normal. No additional facial bone fractures are identified. The mastoid air cellsare clear. No soft tissue abnormality is identified. Cervical spine: There is gentle cervical kyphosis. Vertebral bodies are normal in height without evidence of acute fracture. The craniocervical junction isnormal. The intervertebral discs appear normal. No central canal stenosis isseen. The facets appear normal. The uncovertebral joints appear normal. No neural foraminal stenosis is seen. No soft tissue abnormality is identified. Thoracic spine: The alignment is normal. Vertebral bodies are normal in height without evidence of acute fracture. Schmorl's nodes are present at multiple levels. No central canal stenosis is seen. The facets appear normal. No neural foraminal stenosis is seen. There is subsegmental atelectasis in the dependent portions of the lung bases. Lumbar spine: The alignment is normal. Vertebral bodies are normal in height without evidence of acute fracture. The intervertebral discs appear normal. No central canal stenosis is seen. The facets appear normal. No neural foraminal stenosis is seen. No soft tissue abnormality is identified. IMPRESSION: 1. No acute intracranial process. 2. 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 3. No evidence of acute fracture in the cervical, thoracic, or lumbar spine. Dictated by Chris Bentley MD (university president)[id number] I, Dr. BLADIMIR CONWAY M.D. have personally reviewed and interpreted this examination/study. This report was electronically signed by BLADIMIR CONWAY M.D. on 12/04/2019 11:14 AM . Mauricio Hubbard MD CT ORDERABLES * CT HEAD WO CONTRAST (12/03/2019 11:09 PM [employer]) Anatomical Region Laterality Modality Head Computed Tomogra phy 12/03/2019 11:1 3 PM [employer] Impressions 12/04/2019 11:14 AM [employer] IMPRESSION: 1. No acute intracranial process. 2. 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 3. No evidence of acute fracture in the cervical, thoracic, or lumbar spine. Dictated by Chris Bentley MD (university president)[id number] I, Dr. BLADIMIR CONWAY M.D. have personally reviewed and interpreted this examination/study. This report was electronically signed by BLADIMIR CONWAY M.D. on 12/04/2019 11:14 AM . Narrative 12/04/2019 11:14 AM [employer] EXAMINATION: 1. Computed tomography (CT) of the head without contrast 2. CT of the maxillofacial bones, orbits, and paranasal sinuses without contrast 3. CT of the cervical spine without contrast 4. CT of the thoracic spine without contrast 5. CT of the lumbar spine without contrast HISTORY: R51: Facial pain S80.212A: Abrasion of left knee, initial encounter TECHNIQUE: CT of the head, cervical spine, and maxillofacial bones, orbits, and paranasal sinuses was performed without contrast according to standard protocol. Reformatted axial, sagittal, and coronal images of the thoracic and lumbar spine were obtained by the technologist from a concurrently performed body CT and sent to the workstation for review. COMPARISON: None FINDINGS: Head: No acute intra- or extra-axial fluid collections are identified. The ventricles are of normal size, shape, and morphology. The basilar cisterns are patent. No mass effect or midline shift is seen. The norton-white matter differentiation is normal. No acute calvarial fracture is identified. Maxillofacial: There is a right-sided lamina papyracea fracture, which appears to be chronic. There is scattered opacification in the ethmoid air cells with small volume fluid in the frontal sinuses, representing hemorrhage. The hard palate, mandible, and temporomandibular joints appear normal. No additional facial bone fractures are identified. The mastoid air cells are clear. No soft tissue abnormality is identified. Cervical spine: There is gentle cervical kyphosis. Vertebral bodies are normal in height without evidence of acute fracture. The craniocervical junction is normal. The intervertebral discs appear normal. No central canal stenosis is seen. The facets appear normal. The uncovertebral joints appear normal. No neural foraminal stenosis is seen. No soft tissue abnormality is identified. Thoracic spine: The alignment is normal. Vertebral bodies are normal in height without evidence of acute fracture. Schmorl's nodes are present at multiple levels. No central canal stenosis is seen. The facets appear normal. No neural foraminal stenosis is seen. There is subsegmental atelectasis in the dependent portions of the lung bases. Lumbar spine: The alignment is normal. Vertebral bodies are normal in height without evidence of acute fracture. The intervertebral discs appear normal. No central canal stenosis is seen. The facets appear normal. No neural foraminal stenosis is seen. No soft tissue abnormality is identified. Procedure Note Bladimir Conway MD - 12/04/2019 EXAMINATION: 1. Computed tomography (CT) of the head without contrast 2. CT of the maxillofacial bones, orbits, and paranasal sinuses without contrast 3. CT of the cervical spine without contrast 4. CT of the thoracic spine without contrast 5. CT of the lumbar spine without contrast HISTORY: R51: Facial pain S80.212A: Abrasion of left knee, initial encounter TECHNIQUE: CT of the head, cervical spine, and maxillofacial bones, orbits, and paranasal sinuses was performed without contrast accordingto standard protocol. Reformatted axial, sagittal, and coronal images ofthe thoracic and lumbar spine were obtained by the technologist from a concurrently performed body CT and sent to the workstation for review. COMPARISON: None FINDINGS: Head: No acute intra- or extra-axial fluid collections are identified. The ventricles are of normal size, shape, and morphology. The basilarcisterns are patent. No mass effect or midline shift is seen. The norton-whitematter differentiation is normal. No acute calvarial fracture is identified. Maxillofacial: There is a right-sided lamina papyracea fracture, which appears to be chronic. There is scattered opacification in the ethmoid air cells with small volume fluid in the frontal sinuses, representing hemorrhage. The hard palate, mandible, and temporomandibular joints appear normal. No additional facial bone fractures are identified. The mastoid air cellsare clear. No soft tissue abnormality is identified. Cervical spine: There is gentle cervical kyphosis. Vertebral bodies are normal in height without evidence of acute fracture. The craniocervical junction isnormal. The intervertebral discs appear normal. No central canal stenosis isseen. The facets appear normal. The uncovertebral joints appear normal. No neural foraminal stenosis is seen. No soft tissue abnormality is identified. Thoracic spine: The alignment is normal. Vertebral bodies are normal in height without evidence of acute fracture. Schmorl's nodes are present at multiple levels. No central canal stenosis is seen. The facets appear normal. No neural foraminal stenosis is seen. There is subsegmental atelectasis in the dependent portions of the lung bases. Lumbar spine: The alignment is normal. Vertebral bodies are normal in height without evidence of acute fracture. The intervertebral discs appear normal. No central canal stenosis is seen. The facets appear normal. No neural foraminal stenosis is seen. No soft tissue abnormality is identified. IMPRESSION: 1. No acute intracranial process. 2. 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 3. No evidence of acute fracture in the cervical, thoracic, or lumbar spine. Dictated by Chris Bentley MD (university president)[id number] Dr. BLADIMIR Villaseñor M.D. have personally reviewed and interpreted this examination/study. This report was electronically signed by BLADIMIR CONWAY M.D. on 12/04/2019 11:14 AM . Mauricio Hubbard MD CT ORDERABLES * XR KNEE LEFT 3VW (12/03/2019 10:07 PM [employer]) Anatomical Region Laterality Modality Lower Extremity Radiographic Renee ging 12/03/2019 10:3 4 PM [employer] Impressions 12/04/2019 11:14 AM [employer] IMPRESSION: No acute fracture or dislocation identified. Small effusion. Dictated by Chris Bentley MD (university president). This report was approved by Chris Bentley on 12/04/2019 8:[address] STU Villaseñor MD have personally reviewed and interpreted this examination/study. This report was electronically signed by Dr. STU WHITE MD on 12/04/2019 11:14 AM . Narrative 12/04/2019 11:14 AM [employer] EXAMINATION: XR KNEE LEFT 3VW HISTORY: R51: Facial pain S80.212A: Abrasion of left knee, initial encounter Z72.89: Alcohol use T14.90XA: Trauma FINDINGS: No prior study is available for comparison at the time of this dictation. The osseous structures are intact and well aligned without acute fracture or dislocation. The knee joint space is preserved. There is a small knee joint effusion. Soft tissue swelling is seen along the anterior and lateral aspects of the knee. Procedure Note Stu White MD - 12/04/2019 EXAMINATION: XR KNEE LEFT 3VW HISTORY: R51: Facial pain S80.212A: Abrasion of left knee, initial encounter Z72.89: Alcohol use T14.90XA: Trauma FINDINGS: No prior study is available for comparison at the time of this dictation. The osseous structures are intact and well aligned without acutefracture or dislocation. The knee joint space is preserved. There is a small knee joint effusion. Soft tissue swelling is seen along the anterior and lateral aspects of the knee. IMPRESSION: No acute fracture or dislocation identified. Small effusion. Dictated by Chris Bentley MD (university president). This report was approved by Chris Bentley on 12/04/2019 8:[address] STU Villaseñor MD have personally reviewed and interpretedthis examination/study. This report was electronically signed by Dr. STU WHITE MD on 12/04/2019 11:14 AM . 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 Dictated by Chris Bentley MD (university president). This report was approved by Chris Bentley on 12/04/2019 8:[address] STU Villaseñor MD have personally reviewed and interpreted this examination/study. This report was electronically signed by Dr. STU WHITE MD on 12/04/2019 11:14 AM . Narrative 12/04/2019 11:14 AM [employer]ODY MAN EXAMINATION: XR PELVIS 1 OR 2VW HISTORY: R51: Facial pain S80.212A: Abrasion of left knee, initial encounter Z72.89: Alcohol use T14.90XA: Trauma FINDINGS: No prior study is available for comparison at the time of this dictation. No acute fracture is identified. The femoral heads appear well-seated within their respective acetabula. The hip joint spaces are preserved. The pubic symphysis is intact. The sacroiliac joints are normal. Procedure Note Stu White MD - 12/04/2019 EXAMINATION: XR PELVIS 1 OR 2VW HISTORY: R51: Facial pain S80.212A: Abrasion of left knee, initial encounter Z72.89: Alcohol use T14.90XA: Trauma FINDINGS: No prior study is available for comparison at the time of this dictation. No acute fracture is identified. The femoral heads appear well-seated within their respective acetabula. The hip joint spaces are preserved.The pubic symphysis is intact. The sacroiliac joints are normal. IMPRESSION: No acute fracture identified. Dictated by Chris Bentley MD (university president). This report was approved by Chris Bentley on 12/04/2019 8:22 AM . I, . Dr. STU WHITE MD have personally reviewed and interpretedthis examination/study. This report was electronically signed by Dr. STU WHITE MD on 12/04/2019 11:14 AM . Mauricio Hubbard MD DIAGNOSTIC IMAGING O RDERABLES * (ABNORMAL) DRUG SCREEN TOX URINE PANEL (12/03/2019 9:30 PM AUT[employer] BODY MAN) Amphetamines Screen Urine Negative Negative : < 1000 ng/mL 12/03/2019 10:09 PM [facility] Barbiturates Screen Urine Negative Negative : < 200 ng/mL 12/03/2019 10:09 PM [facility] Benzodiazepine Screen Urine Negative Negative : < 200 ng/mL 12/03/2019 10:09 PM [facility] Opiates Urine Positive(A) Negative : < 300 ng/mL 12/03/2019 10:09 PM [facility] Comment:Positive urine opiat e screening results should be confirmed by another generally accepted non-immunological method such as gas chromatography or mass spectrometry. Cocaine Metabolites Urine Negative Negative : < 300 ng/mL 12/03/2019 10:09 PM [facility] Phencyclidine Screen Urine Negative Negative : < 25 ng/ml 12/03/2019 10:09 PM [facility] Cannabinoids Screen Urine Positive(A) Negative : <50 ng/mL 12/03/2019 10:09 PM [facility] Comment:Positive urine canna binoids (THC) screening results should be confirmed by another generally accepted non-immunological method such as gas chromatography or mass spectrometry. Methadone Screen Urine Positive(A) Negative : < 300 ng/mL 12/03/2019 10:09 PM [facility] Comment:Positive urine metha done screening results should be confirmed by another generally accepted non-immunological method such as gas chromatography or mass spectrometry. Fentanyl Screen Urine Negative Negative : <1.0 ng/mL 12/03/2019 10:09 PM [facility] Urine URINE / Unknown Collection / Unknown 12/03/2019 9:30 PM [employer] 12/03/2019 9:36 PM [facility] - 12/03/2019 10:09 PM [facility] The Urine Toxicology Screening Panel does not screen for Propoxyphene, Meprobamate, Carisoprodol, Trazodone, ftqo-otj-yixbuew medications and/or volatiles (Acetone, Isopropanol, Methanol or Ethylene Glycol). Ethanol, Salicylate, Acetaminophen, Tricyclic Antidepressants and several therapeutic drugs may be individually assayed in serum or plasma specimen. Toxicology testing by the [facility] is an aid to medical diagnosis and treatment of patients. No documented chain of custody was maintained. Results are intended to be used for clinical purposes only. Mauricio Hubbard MD LAB - URINE CHEMISTR Y ORDERABLES [facility] [address] [place] [address] * PT-INR [facility] (12/03/2019 9:25 PM [facility]) PT 12.8 12.1 - 14.8 Seconds 12/03/2019 9:48 PM [facility] INR 1.0 See Comment 12/03/2019 9:48 PM [facility] Comment:The suggested therap eutic range for standard coumadin (warfarin) therapy is an INR of 2.0-3.0. For high-risk patients (Mechanical Mitral Valve Prosthesis, etc.), the suggested prophylactic therapeutic range is an INR of 2.5-3.5. Blood BLOOD SPECIMEN / Unknown Venipuncture / Unknown 12/03/2019 9:25 PM [employer] 12/03/2019 9:36 PM [employer] Mauricio Hubbard MD LAB - COAGULATION OR DERABLES Performing Organization Address [facility]/ZIP Co de Phone Number [address] [phone] * TYPE + SCREEN PANEL (12/03/2019 9:25 PM [employer] MAN) Antibody Screen NEG 0 10:20 PM [employer] MAN [facility] ABO Rh A POS 12/03/2019 10:20 PM [employer] [facility] Blood Bank BLOOD SPECIMEN / Unknown Venipuncture / Unknown 12/03/2019 9:25 PM [employer] 12/03/2019 9:43 PM [employer] Mauricio Hubbard MD LAB - BLOOD BANK ORD ERABLES Performing Organization Address [facility] Co de Phone Number [facility] [address] [place] [address] * (ABNORMAL) ALCOHOL ETHYL BLOOD (12/03/2019 9:25 PM [employer] MAN) Ethanol (mg/dL) 178(H) None Detected mg/dL 12/03/2019 10:08 PM [employer]ODY [employer] [facility] Comment:Ethanol in the patie nt's blood will contribute to the osmolar gap. Ethanol's contribution to the osmolar gap can be estimated by dividing the concentration of ethanol in mg/dL by 4.6. Blood BLOOD SPECIMEN / Unknown Venipuncture / Unknown 12/03/2019 9:25 PM [employer] 12/03/2019 9:36 PM [employer] Mauricio Hubbard MD LAB - CHEMISTRY ORDE RABLES Performing Organization Address [facility]/ZIP Co de Phone Number [address] [phone] * (ABNORMAL) STREP A SCREEN - POINT OF CARE (AMB) (06/04/2010 11:05 AM CDT) [facility] Strep A Rapid POCT POS NEGATIVE - POSITVE Strep A Internal Control NEGATIVE - POSITIVE ENTIRE THROAT (SURFACE REGION OF NECK) / Unknown Nicolasa Cevallos MD LAB - POINT OF CARE ORDERABLES * CULTURE ROUTINE (12/09/2008 10:00 AM AUTO BODY MAN) [facility] Comment: CULTURE, AEROBIC BACTERIA MICRO NUMBER: [id number] TEST STATUS: FINAL SPECIMEN SOURCE: WOUND (SITE NOT SPECIFIED) SPECIMEN COMMENTS: ADEQUATE RESULT: MODERATE GROWTH OF STAPHYLOCOCCUS AUREUS S.AUREUS INT FATEMEH AMOX/CLAVULANATE S <4/2 AMP/SULBACTAM S <8/4 CEFAZOLIN S <8 CLINDAMYCIN S <0.25 ERYTHROMYCIN S <0.25 GENTAMICIN S <1 LEVOFLOXACIN S 1 OXACILLIN S <0.25 PENICILLIN R QUINU/DALFOPRISTIN S 0.5 TETRACYCLINE S <1 TRIMETHOPRIM/SULFA S <0.5/9.5 VANCOMYCIN S 2 Legend: S = Susceptible I = Intermediate R = Resistant NS = Not Susceptible * = Not Tested NR = Not Reported nn = See Therapy Comments Test Performed at: [facility] [address] [place] [address] CRISTIAN COTTO MD 12/09/2008 10:0 0 AM [employer] MAN 12/10/2008 12:11 AM [employer]ODY MAN Irma Grubbs MD LAB - MICROBIOLOGY O RDERABLES [facility] [address] [place] [address] * CULTURE THROAT (11/25/2008 10:30 AM AUTO BODY MAN) [facility] Comment: CULTURE, THROAT MICRO NUMBER: [id number] TEST STATUS: FINAL SPECIMEN SOURCE: THROAT SPECIMEN COMMENTS: ADEQUATE RESULT: GROWTH OF NORMAL OROPHARYNGEAL TAMY Test Performed at: [facility] [address] [place] [address] PROSPER CACERES MD 11/25/2008 10:3 0 AM [employer] MAN 11/26/2008 4:14 AM AUT[employer]ODY MAN Irma Grubbs MD LAB - MICROBIOLOGY O RDERABLES [facility] [address] [place] [address] Care Teams Security Services Manager Relationship Specialty Start Date End Date Irma Grubbs MD [address] [place] [address] PCP - General 12/06/19 Nicolasa Cevallos MD [address] [place] [address] PCP - Pediatrics 08/17/09 Nicolasa Cevallos MD [address] [place] [address] Pediatrics 12/06/19
--- OUTSIDE RECORDS SUMMARY | 2024-11-25 13:31 | XMS_ITS | Continuity of Care Document ---
Author Organization [facility] Address [address] [facility] [address] [place] [address] Phone Care Team Providers Care Taker Down Name Role Phone Josseline Beatty Unavailable Unavailable Advance Directives Directive Yes / No Effective Date File Name No Information Encounters Encounter Description Practice Location Reason(s) For Visit Diagnoses Date Provider Providers Copied on Encounter [facility], [address], [place], [place], [id number], [place] tel:[phone] [facility] No Information [address] , [address], [place], [address], [place]. tel:[phone] Family History Family Member Type Diagnosis Age At Onset No Information Payers Payer name Insurance type Covered constitution party ID Authoriza tion(s) No Information Social History Type Description Quantity Date Captured Comments Sex Male Smoking Status No Information Chief Complaint And Reason For Visit No Information Reason For Referral Reason For Referral No Information History Of Present Illness Encounter Date Complaint History Of Prese nt Illness No Information Functional Status Date Functional Assessmen t No Information Instructions Date Instruction Additional Infor mation No Information Assessments Type Assessment Date No Information Patient Care Teams Name Effective Dates (start - stop) Status Members No Information
--- OUTSIDE RECORDS SUMMARY | 2024-11-25 13:32 | XMS_ITS ---
Author Organization [facility] Address [address] [place] [address] Care Team Providers Care Health Care Coordinator Name Role Phone Ignacio Bell Primary Care Provider [phone] Cristina Myles Unavailable [phone] Allergies No Known Allergies REASON FOR VISIT mat clinic Medications Medication SIG (Take, Route, Frequency, Duration) [...] day for 30 days Active Social History Sex Assigned At : Social History Observation Description Sex Assigned At Male Vital Signs Weight 129.0 lbs 10/11/2024 Height 65 in 10/11/2024 BMI 21.46 kg/m2 10/11/2024 Blood pressure systolic 112 mm Hg 10/11/20 24 Blood pressure diastolic 80 mm Hg 024 Heart Rate 76 /min 10/11/2024 Oximetry 97 % 10/11/2024 Temperature 98.6 degrees Fahrenheit 10/11/20 24 Respiratory Rate 16 /min 10/11/2024 Encounters Encounter Location Date Provider Diagnosis [address] [place] [address] 10/11/2024 Cristina Myles Opioid use disorder F11.99 Assessments Encounter Date Diagnosis (ICD Code) Assessment Notes Treatment Notes Treatment Clinical Notes Section Notes 10/11/2024 Opioid use disorder (ICD-10 - F11.99) [...] services. Contact office with questions or concerns. Plan Of Treatment Medication Medication Name Sig Start Date Stop Date Notes Buprenorphine HCl-Naloxone H Cl 8-2 MG 1 film under the tongue and allow to dissolve Sublingual Twice a day for 30 days 10/11/2024 Treatment Notes Assessment Notes Opioid use disorder Patient agrees to take medication as prescribed. [...] services. Contact office with questions or concerns. Next Appt Details Follow Up: 4 Weeks, Reason: MAR f/u Progress Notes * Lucius CORRALDOB: [birth year] (29 yo M)Acc No.[id number]:10/11/2024 Patient: Lucius EDMONDS Provider: Lianna Myles, MSN, TUBE KNITTER, PMHNP-BC :1995 A ge:29 Y S ex:Male Date:10/11/2024 Address:[address] [place], [place] [phone] Pcp:Ignacio Bell Subjective: * Chief Complaints: * M at clinic * HPI: M AR follow-up: DEC walk-in, 4 week f/u Doing well with current dose of buprenorphine Denies cravings or setbacks. Completed physical therapy for sciatica, reports great improvement. Saw neurology who think he may have a herniated disc, needs to have MRI completed. Medication Monitoring and Risk Mitigation U p-to-date on ASAM recommended lab testing? N o, P rescribed a buprenorphine product? Y es, H as patient had a buprenorphine and metabolite lab ordered/collected? Y es (see notes for date of last metabolite testing), D ate of last buprenorphine and metabolite 1 , P rescription Drug Monitoring Program Review Y es. No concerns at this time., P isabell to address any concerns identified: N o concerns identified. Will continue treatment plan as is.. C ravings, Setbacks, Substance use, and Stressors C ravings since last visit: N o. Patient denies cravings since last visit., S etbacks since last visit? N o, patient denies setbacks since last visit., M isuse of substances since last visit: N o, patient denies., S tressors N o, patient denies stressors at this time.. W ithdrawal and Intoxication Symptoms I ntoxication Symptoms: N o signs of intoxication are present during visit., W ithdrawal Symptoms: N o withdrawal signs are present during visit.. M ental Health, Support System, and Social Determinants M ental Health Status S table., S upport Systems Include: P ersonal support system (see notes)., C ourt System Involvement? 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 R ecommended Wellness and Prevention Follow-up R ecommended Wellness and Prevention reviewed: Y es. No additional orders/actions needed at this time.. O ther concerns: O ther Concerns? N o., N arcan need Y es. Prescription will be sent today. Re-educated on appropriate use of Narcan.. * ROS: B asic ROS: Denies C hills. D enies S weats. D enies C onstipation. D enies S uicidal Thoughts. * Medical History: * Surgical History: A ppendectomy 2012 * Hospitalization/Major Diagno stic Procedure: D etox x1 * Family History: F ather: alive. M other: alive. 1 brother(s) , 3 sister(s) - healthy. 2 daughter(s) - healthy. . Maternal diabetes and cancer. * Social History: P rimary Social History: L iving Arrangement L iving Arrangement: Dependent Living ,Living with: Parent(s) ,Is this a supportive environment? Yes .. * Medications: T akingNaloxone HCl 4 MG/0.1ML Liquid as directed Nasally FOR OPIOID OVERDOSEhydrOXYzine HCl 50 MG Tablet 1 tablet as needed Orally Once a day Buprenorphine HCl-Naloxone HCl 8-2 MG Film 1 film under the tongue and allow to dissolve Sublingual Twice a day Medication List reviewed and reconciled with the patientTaking Naloxone HCl 4 MG/0.1ML Liquid as directed Nasally FOR OPIOID OVERDOSETaking hydrOXYzine HCl 50 MG Tablet 1 tablet as needed Orally Once a day Taking Buprenorphine HCl-Naloxone HCl 8-2 MG Film 1 film under the tongue and allow to dissolve Sublingual Twice a day Medication List reviewed and reconciled with the patient * Allergies: N .K.D.A.no[Allergies Verified] Objective: * Vitals: I nitials: rt, Wt:129.0, Ht: 65, BMI:21.46, BP:112/80, HR:76, Oxygen sat %:97, Temp:98.6, RR:16, Pain scale:0. * Examination: A [facility] Physical Assessment: Intoxication and Withdrawal signs . G eneral Examination: GENERAL APPEARANCE: a lert, pleasant, in no acute distress.? PSYCH: a lert, oriented x4, speech clear, good eye contact.? Assessment: * Assessment: 1. O pioid use disorder - F11.99 (Primary) Plan: * Treatment: Value Reference Range T HC POS * C OC neg * M OP (OPI) neg * A MP neg * M ET neg * B AR neg * B ZO neg * M DMA neg * M TD neg * O XY neg * P CP neg * B UP POS ?LAB: Buprenorphine and Metabolite (Urine test) (Ordered for 10/11/2024) (Collection Date & Time- 10/11/2024 01:20 PM) Notes:Patient agrees to take medication as prescribed. Discussedmedication side effects, adverse effects,risks, benefits, as well asinteractions. Encouraged non-use of opioids and other illicit substances. Hasnaloxone. Discontinuing buprenorphine increases the risk of overdose uponreturn to illicit opioid use. Use of alcohol or benzodiazepines withbuprenorphine increases the risk of overdose anddeath. Education providedabout safe storage of medications. Encouragedparticipation in recovery groups/counseling services. Contact office withquestions or concerns. ?? * Procedure Codes: * Follow Up: 4 Weeks (Reason: MAR f/u) * * ER SETTER Sign off status: Completed true * Provider: Lianna Myles, MSN, TUBE KNITTER, PMHNP-BC Date: 1 Generated for Printing/Faxing/eTransmitting on: 0 11/25/2024 01:31 PM ROLLER SETTER History and Physical Notes * HPI (History of Present Illness) Category Sub-Category Detail Notes Category Not es MAR follow-up Medication Monitorin g and Risk Mitigation Up-to-date on ASAM recommended lab testing?: No Prescribed a buprenorphine product?: Yes Has patient had a buprenorphine and metabolite lab ordered/collected?: Yes (see notes for date of last metabolite testing) Date of last buprenorphine and metabolite: 10/11/2024 Prescription Drug Monitoring Program Rev iew: Yes. No concerns at this time. Plan to address any concerns identified:: No concerns identified. Will continue treatment plan as is. Cravings, Setbacks, Substanc e use, and Stressors Cravings since last visit:: No. Patient denies cravings since last visit. Setbacks since last visit?: No, patient denies setbacks since last visit. Misuse of substances since last visit:: No, patient denies. Stressors: No, patient denies stressors at this time. Withdrawal and Intoxication Symptoms Int oxication Symptoms:: No signs of intoxication are present during visit. Withdrawal Symptoms:: No withdrawal sign s are present during visit. Mental Health, Support Syste m, and Social Determinants Mental Health Status: Stable. Support Systems Include:: Personal suppo rt system (see notes). Court System Involvement?: No Housing Stability:: Stable and safe hous ing. 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 Referrals needed:: No referrals needed a t this time. Recommended Wellness and Pre vention Follow-up Recommended Wellness and Prevention reviewed:: Yes. No additional orders/actions needed at this time. Other concerns: Other Concerns?: No. Narcan need: Yes. Prescripti on will be sent today. Re-educated on appropriate use of Narcan. Examination Category Sub-Category Detail Notes Category Not es General Examination GENERAL APPEARANCE: alert, p leasant, in no acute distress PSYCH: alert, oriented x4, speech clear, good eye contact ASAM Physical Assessment Intoxication an d Withdrawal signs Intoxication signs: No signs of intoxication are present during examination. Withdrawal Signs: No withdrawal signs ar e present during examination.
--- OUTSIDE RECORDS SUMMARY | 2024-11-25 13:32 | XMS_ITS ---
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 Stress is when someone feels tense, nervous, anxious, or can\t sleep at night because their mind is troubled Very much In the past year have you sp ent more than 2 nights in a row in a care home, care home, fpc center, or juvenile correctional facility? No Are you a refugee? No What country are you from? [place] Do you feel physically and e motionally safe where you currently live? Yes In the past year, have you b een afraid of your partner or ex-partner? No PRAPARE Score: 3 Tobacco Control (Standard) Question Answer Notes Tobacco use: Current smoker Vital Signs Weight 125.8 lbs 08/09/2024 Height 65 in 08/09/2024 BMI 20.93 kg/m2 08/09/2024 Blood pressure systolic 126 mm Hg 08/09/20 24 Blood pressure diastolic 74 mm Hg 024 Heart Rate 82 /min 08/09/2024 Oximetry 96 % 08/09/2024 Temperature 98.8 degrees Fahrenheit 08/09/20 24 Respiratory Rate 16 /min 08/09/2024 Encounters Encounter Location Date Provider Diagnosis [address] [place] [address] 08/09/2024 Cristina Myles Opioid use disorder F11.99 and Nicotine dependence, unspecified, uncomplicated F17.200 Assessments Encounter Date Diagnosis (ICD Code) Assessment Notes Treatment Notes Treatment Clinical Notes Section Notes 08/09/2024 Opioid use disorder (ICD-10 - F11.99) 08/09/2024 Nicotine dependence, unspecified, uncomplicated (ICD-10 - F17.200) 08/09/2024 Other Client agrees to take medication [...] Sublingual Twice a day for 30 days 08/09/2024 Treatment Notes Assessment Notes Other Client agrees to take medication as [...] * Lucius CORRALDOB: [birth year] (29 yo M)Acc No.[id number]:08/09/2024 Patient: Veena ANTELMOASTRIDLucius Provider: Lianna Myles, MSN, PATIENT MANAGER, PMHNP-BC :1995 A ge:29 Y S ex:Male Date:08/09/2024 Address:[address] [place], [place] [id number] Pcp:Ignacio Bell Check In:09:25 AM CLARK DRIVER Subjective: * Chief Complaints: * M at clinic * HPI: I nterim History: Emergency room visit N o. W as hospitalized N o.? D epression Screening: PHQ-9 L ittle interest or pleasure in doing things N ot at all, F eeling down, depressed, or hopeless N ot at all, T rouble falling or staying asleep, or sleeping too much N ot at all, F eeling tired or having little energy N ot at all, P oor appetite or overeating N ot at all, F eeling bad about yourself or that you are a failure, or have let yourself or your family down N ot at all, T rouble concentrating on things, such as reading the newspaper or watching television N ot at all, M oving or speaking so slowly that other people could have noticed; or the opposite, being so fidgety or restless that you have been moving around a lot more than usual N ot at all, T houghts that you would be better off or of hurting yourself in some way N ot at all, T otal Score 0 . S creening: [place] Suicide Severity Rating Scale (LF) D o you want to initiate with S creener form, 1 . Wish to be : Have you wished you were or wished you could go to sleep and not wake up? N o, 2 . Suicidal Thoughts: Have you actually had any thoughts of killing yourself? N o, 6 . Suicide Behaviour: Have you ever done anything,started to do anything, or prepared to end your life? N o, I nterpretation: L ow Risk. C SSRS Interpretation and Follow Up Plan: CSSRS Interpretation and Follow Up Plan. CSSRS Interpretation and Follow Up Plan C SSRS Screen documented using SF Y es, M oderate or High risk requires selection of a follow up plan C SSRS No/Low: intervention not needed at this time. M AR follow-up: MAR walk-in, f/u for treatment of OUD Doing well with current dose of buprenorphine. Denies cravings or setbacks Has been doing PT for sciata with some improvement. Has upcoming appointment with neurologist. Medication Monitoring and Risk Mitigation U p-to-date on ASAM recommended lab testing? N o, P rescribed a buprenorphine product? Y es, H as patient had a buprenorphine and metabolite lab ordered/collected? 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 Yes .. S ocial Determinants: P NATALYA Maria ate Completed/Updated: 0 06/10/2024, W hat is your current housing situation? I have housing, A re you worried about losing your housing? N o, W hat is the highest level of school that you have finished? M ore than high school, W hat is your current work situation? F ull time work, I n the past year, have you or any family members you live with been unable to get any of the following when it was really needed? Check all that apply I do not have problems meeting my needs, H as lack of transportation kept you from medical appointments, meetings, work or from getting things needed for daily living? N o, H ow often do you see or talk to people that you care about and feel close to? (For example: talking to friends on the phone, visiting friends or family, going to shinto or club meetings) 3 to 5 times a week,?How stressed are you? Stress is when someone feels tense, nervous, anxious, or can\t sleep at night because their mind is troubled V trino much, I n the past year have you spent more than 2 nights in a row in a care home, care home, fpc center, or juvenile correctional facility? N o, Are you a refugee? N o, W hat country are you from[place], D o you feel physically and emotionally safe where you currently live? Y es, I n the past year, have you been afraid of your partner or ex-partner? N o, P RAPARE Score: 3 . T obacco Use: T obacco Control (Standard) T obacco use: C urrent smoker. M iscellaneous: M ethod of learning P referred method of learning: D emonstration. * Medications: T akingNaloxone HCl 4 MG/0.1ML [...] Verified] Objective: * Vitals: I nitials: rt, Wt:125.8, Ht: 65, BMI:20.93, BP:126/74, HR:82, Oxygen sat %:96, Temp:98.8, RR:16, Pain scale:6. * Examination: A [facility] Physical Assessment: Intoxication and Withdrawal signs . G eneral Examination: GENERAL APPEARANCE: a lert, pleasant, in no acute distress.? PSYCH: a lert, oriented x4, speech clear, good eye contact.? Assessment: * Assessment: 1. N icotine dependence, unspecified, uncomplicated - F17.200 2 . O pioid use disorder - F11.99 (Primary) Plan: * Treatment: Value Reference Range T HC POS * C OC neg * M OP (OPI) neg * A MP neg * M ET neg * B AR neg * B ZO neg * M DMA neg * M TD neg * O XY neg * P CP neg * B UP POS 2.?Others? Notes:Client agrees to take medication as prescribed. Discussedmedication side effects, adverse effects, risks, benefits, as well asinteractions. Encouraged non-use of opioids and other illicit substances.Hasnaloxone. Discontinuing buprenorphine increases the risk of overdose uponreturn to illicitopioid use. Use of alcohol or benzodiazepines withbuprenorphine increases the risk of overdose and . Education providedabout safe storage of medications. Encouragedparticipation in recovery groups/counseling services. Contact office withquestions or concerns. ?? * Procedure Codes: 9 9406 BEHAV CHNG SMOKING 3-10 MIN * Preventive Medicine: Counseling: S MOKING: P atient counselled on the dangers of tobacco use and urged to quit. . . * Follow Up: 4 Weeks (Reason: DEC f/u) * * Sign off status: Completed true * Provider: Lianna Myles, MSN, PATIENT MANAGER, PMHNP- Date: Generated for Printing/Faxing/eTransmitting on: 0 11/25/2024 01:31 PM CLARK DRIVER History and Physical Notes * HPI (History of Present Illness) Category Sub-Category Detail Notes Category Not es Interim History Was hospitalized No Emergency room visit No Depression Screening PHQ-9 Little inte rest or pleasure in doing things: Not at all Feeling down, depressed, or hopeless: No t at all Trouble falling or staying asleep, or sl eeping too much: Not at all Feeling tired or having little energy: N ot at all Poor appetite or overeating: Not at all Feeling bad about yourself o r that you are a failure, or have let yourself or your family down: Not at all Trouble concentrating on thi ngs, such as reading the newspaper or watching television: Not at all Moving or speaking so slowly that other people could have noticed; or the opposite, being so fidgety or restless that you have been moving around a lot more than usual: Not at all Thoughts that you would be b yudy off or of hurting yourself in some way: Not at all Total Score: 0 Screening [place] Suicide Sev erity Rating Scale (LF) Do you want to initiate with: Screener form 1. Wish to be : Have you wished you were or wished you could go to sleep and not wake up?: No 2. Suicidal Thoughts: Have you actually had any thoughts of killing yourself?: No 6. Suicide Behavior Question: Have you ever done anything,started to do anything, or prepared to end your life?: No Interpretation:: Low Risk Do Not Use CSSRS Interpretation and Follow Up Plan CSSRS Interpretation and Follow Up Plan CSSRS Screen documented using SF: Yes Moderate or High risk requir es selection of a follow up plan: CSSRS No/Low: intervention not needed at this time MAR follow-up Medication Monitorin g and Risk Mitigation Up-to-date on ASAM recommended lab testing?: No Prescribed a buprenorphine product?: Yes Has patient had a buprenorphine and metabolite lab ordered/collected?: Yes (see notes for date of last metabolite testing) Date of last buprenorphine and metabolite: 04/02/2024 Prescription Drug Monitoring Program Rev iew: Yes. [...] and safe hous ing. 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 Referrals needed:: No referrals needed a t [...]
--- OUTSIDE RECORDS SUMMARY | 2024-11-25 13:32 | XMS_ITS | Clinical Summary ---
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 Gender Identity Not on file Sexual Orientation Not on file Obstetrics History Last Filed Vital Signs Vital Sign Reading [...] 06/22/2024 7:12 PM CDT Plan of Treatment Health Maintenance Due Date Last Done Comments Depression Screening 1995 Hepatitis C Screening 1994 Pneumococcal vaccine <65 (1 of 2 - PCV) 2000 Varicella Vaccines (1 of 2 - 13+ 2-dose series) 2007 Regular Well Visit/Exam 18-64 2012 Covid-19 Vaccine ( season) 2024 2021, 04/01/2021 Influenza Vaccine (#1) 2024 DTaP/Tdap/Td Vaccine (9 - Td or Tdap) 07/29/2032 07/29/2022, 02/12/2016, 07/05/2008, Additional history exists Hepatitis B Screening Completed 05/23/1995 , 1994, 1994 HPV Vaccines Aged Out No longer eligi ble based on patient's age to complete this topic Insurance [facility] Care Teams Repair Supervisor Relationship Specialty Start Date End Date Shantelle Petersen NP [address] [phone] PCP - General Nurse Practitioner 10/01/23
--- OUTSIDE RECORDS SUMMARY | 2024-11-25 13:32 | XMS_ITS ---
Author Organization [facility] Address [address] [place] [address] Care Team Providers Care Microbiology Technician Name Role Phone Ignacio Bell Primary Care Provider Natacha Poes Unavailable [phone] Allergies No Known Allergies Results Component Value Reference Range Notes 12 Panel Urine Drug Screen Reviewed date:09/10/2024 10:24:34 AM Interpretation: Performing Lab: Notes/Report: THC POS RUTH NEG MOP (OPI) NEG AMP NEG MET NEG BAR NEG BZO NEG MDMA NEG MTD NEG OXY NEG PCP NEG BUP POS REASON FOR VISIT mat clinic Medications Medication SIG (Take, Route, Frequency, Duration) Notes Start Date End Date Status Buprenorphine HCl-Naloxone HCl 8-2 MG 1 film under the tongue and allow to dissolve Sublingual Twice a day for 30 days 09/10/2024 Active Naloxone HCl 4 MG/0.1ML as directed Nasally FOR OPIOID OVERDOSE 06/28/2024 Active hydrOXYzine HCl 50 MG 1 tablet as needed Orally Once a day for 30 days Active Social History Tobacco Use: Social History Observation Description Date Details (start date - stop date) Current Smoker NA - NA Sex Assigned At : Social History Observation Description Sex Assigned At Male Tobacco Control (Standard) Question Answer Notes Tobacco use: Current smoker Vital Signs Weight 133.8 lbs 09/10/2024 Height 65 in 09/10/2024 BMI 22.26 kg/m2 09/10/2024 Blood pressure systolic 124 mm Hg 09/10/20 24 Blood pressure diastolic 84 mm Hg 024 Heart Rate 74 /min 09/10/2024 Oximetry 98 % 09/10/2024 Temperature 98.3 degrees Fahrenheit 09/10/20 24 Respiratory Rate 16 /min 09/10/2024 Encounters Encounter Location Date Provider Diagnosis [address] [place] [address] 09/10/2024 Jacoby Poe Opioid use disorder F11.99 and Nicotine dependence, unspecified, uncomplicated F17.200 Assessments Encounter Date Diagnosis (ICD Code) Assessment Notes Treatment Notes Treatment Clinical Notes Section Notes 09/10/2024 Opioid use disorder (ICD-10 - F11.99) 09/10/2024 Nicotine dependence, unspecified, uncomplicated (ICD-10 - F17.200) 09/10/2024 Other Potential side effects of buprenorphine discussed, as well as taking buprenorphine as prescribed. Dangers of using other controlled substances (prescribed or illegal/including benzodiazepines) with buprenorphine discussed. Patient understands taking other narcotics with buprenorphine could lead to respiratory distress and even . Patient understands that ALL treating providers/physici ans should be informed of buprenorphine use as part of a Medication Assisted Treatment program Plan Of Treatment Medication Medication Name Sig Start Date Stop Date Notes Buprenorphine HCl-Naloxone H Cl 8-2 MG 1 film under the tongue and allow to dissolve Sublingual Twice a day for 30 days 09/10/2024 Treatment Notes Assessment Notes Other Potential side effects of buprenorphine discussed, as well as taking buprenorphine as prescribed. Dangers of using other controlled substances (prescribed or illegal/including benzodiazepines) with buprenorphine discussed. Patient understands taking other narcotics with buprenorphine could lead to respiratory distress and even . Patient understands that ALL treating providers/physicians should be informed of buprenorphine use as part of a Medication Assisted Treatment program Next Appt Details Follow Up: 4 Weeks, Reason: Progress Notes * Lucius CORRALDOB: [birth year] (29 yo M)Acc No.[id number]:09/10/2024 Patient: Lucius EDMONDS Provider: Kandace Poe, MSN, AGPCNP-BC :1995 A ge:29 Y S ex:Male Date:09/10/2024 Address:[address] [place], [place] [id number] Pcp:Ignacio Bell Check In:10:07 AM PRODUCT MARKETING ANALYST Subjective: * Chief Complaints: * M at clinic * HPI: M AR follow-up: 1 month DEC f/u and medication refill. Continues doing well on current dose. Denies any other issues or concerns at this time. Medication Monitoring and Risk Mitigation U p-to-date on ASAM recommended lab testing??No P rescribed a buprenorphine product? Y es H as patient had a buprenorphine and metabolite lab ordered/collected? Y es (see notes for date of last metabolite testing) D ate of last buprenorphine and metabolite?04/02/2024 P rescription Drug Monitoring Program Review?Yes. No concerns at this time. P isabell to address any concerns identified: N o concerns identified. Will continue treatment plan as is. Cravings, Setbacks, Substance use, and Stressors C ravings since last visit: N o. Patient denies cravings since last visit. S etbacks since last visit? N o, patient denies setbacks since last visit. M isuse of substances since last visit: N o, patient denies. S tressors N o, patient denies stressors at this time. Withdrawal and Intoxication Symptoms I ntoxication Symptoms: N o signs of intoxication are present during visit. W ithdrawal Symptoms: N o withdrawal signs are present during visit. Mental Health, Support System, and Social Determinants M ental Health Status S table. S upport Systems Include: P ersonal support system (see notes). C ourt System Involvement? N o H ousing Stability: S table and safe housing. 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 R eferrals needed: N o referrals needed at this time. Recommended Wellness and Prevention Follow-up R ecommended Wellness and Prevention reviewed:?Yes. No additional orders/actions needed at this time. Other concerns: O ther Concerns? N o. N arcan need Y es. Prescription will be sent today. Re-educated on appropriate use of Narcan. I nterim History: Emergency room visit N o , No. Was hospitalized N o , No. D epression Screening: PHQ-9 L ittle interest or pleasure in doing things?Not at all F eeling down, depressed, or hopeless N ot at all T rouble falling or staying asleep, or sleeping too much N ot at all F eeling tired or having little energy N ot at all P oor appetite or overeating N ot at all F eeling bad about yourself or that you are a failure, or have let yourself or your family down N ot at all T rouble concentrating on things, such as reading the newspaper or watching television N ot at all M oving or speaking so slowly that other people could have noticed; or the opposite, being so fidgety or restless that you have been moving around a lot more than usual N ot at all T houghts that you would be better off or of hurting yourself in some way N ot at all T otal Score 0 S creening: [place] Suicide Severity Rating Scale (LF) D o you want to initiate with S creener form 1 . Wish to be : Have you wished you were or wished you could go to sleep and not wake up? N o 2 . Suicidal Thoughts: Have you actually had any thoughts of killing yourself? N o 6 . Suicide Behaviour: Have you ever done anything,started to do anything, or prepared to end your life? N o I nterpretation: L ow Risk C SSRS Interpretation and Follow Up Plan: CSSRS Interpretation and Follow Up Plan. CSSRS Interpretation and Follow Up Plan C SSRS Screen documented using SF Y es M oderate or High risk requires selection of a follow up plan C SSRS No/Low: intervention not needed at this time * ROS: A ll Other Systems: Review of Systems (ROS) A ll others negative except those mentioned in HPI. * Medical History: * Surgical History: A [...] ,Is this a supportive environment? Yes .. T obacco Use: T obacco Control (Standard) T obacco use: C urrent smoker M iscellaneous: M ethod of learning P referred method of learning: D emonstration * Medications: T akingBuprenorphine HCl-Naloxone HCl 8-2 MG Film 1 film under the tongue and allow to dissolve Sublingual Twice a day Naloxone HCl 4 MG/0.1ML Liquid as directed Nasally FOR OPIOID OVERDOSEhydrOXYzine HCl 50 MG Tablet 1 tablet as needed Orally Once a day Taking Buprenorphine HCl-Naloxone HCl 8-2 MG Film 1 film under the tongue and allow to dissolve Sublingual Twice a day Taking Naloxone HCl 4 MG/0.1ML Liquid as directed Nasally FOR OPIOID OVERDOSETaking hydrOXYzine HCl 50 MG Tablet 1 tablet as needed Orally Once a day * Allergies: N .K.D.A.no[Allergies Verified] Objective: * Vitals: I nitials: rt, Wt:133.8, Ht: 65, BMI:22.26, BP:124/84, HR:74, Oxygen sat %:98, Temp:98.3, RR:16, Pain scale:2. * Examination: G eneral Examination: GENERAL APPEARANCE: p leasant, in no acute distress. SKIN: w arm and dry. LUNGS: r espirations regular and easy. PSYCH: a lert, oriented x4, speech clear, good eye contact, full range of affect/positive mood. Assessment: * Assessment: 1. N icotine dependence, unspecified, uncomplicated - F17.200 2 . O pioid use disorder - F11.99 (Primary) Plan: * Treatment: Value Reference Range T HC POS * C OC NEG * M OP (OPI) NEG * A MP NEG * M ET NEG * B AR NEG * B ZO NEG * M DMA NEG * M TD NEG * O XY NEG * P CP NEG * B UP POS 2.?Others? Notes:Potential side effects of buprenorphine discussed, as well as taking buprenorphine as prescribed. Dangers of using other controlled substances (prescribed or illegal/including benzodiazepines) with buprenorphine discussed. Patient understands taking other narcotics with buprenorphine could lead to respiratory distress and even . Patient understands that ALL treating providers/physicians should be informed of buprenorphine use as part of a Medication Assisted Treatment program? * Recommended Wellness and Pre vention Guidelines: * S jenny ordaz L ast Done N ext Due A ction Taken N ONCOMPLIANT H IV screening - 1 11/10/2023 - * Procedure Codes: 9 9000 SPECIMEN [id number] BEHAV CHNG SMOKING 3-10 MIN * Preventive Medicine: Counseling: S MOKING: Patient counselled on the dangers of tobacco use and urged to quit. . * Follow Up: 4 Weeks * * UCT MARKETING ANALYST Sign off status: Completed true * Provider: Kandace Poe, MSN, AGPCNP-BC Date: 1 11/10/2023 Generated for Printing/Faxing/eTransmitting on: 0 11/25/2024 01:31 PM PRODUCT MARKETING ANALYST History and Physical Notes * HPI (History of Present Illness) Category Sub-Category Detail Notes Category Not es Interim History Was hospitalized No , No Emergency room visit No , No Depression Screening PHQ-9 Little inte rest [...] Not at all Total Score: 0 Screening [place] Suicide Sev erity Rating Scale (LF) Do [...] and safe hous ing. 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 Referrals needed:: No referrals needed a t this time. Recommended Wellness and Pre vention Follow-up Recommended Wellness and Prevention reviewed:: Yes. No additional orders/actions needed at this time. Other concerns: Other Concerns?: No. Narcan need: Yes. Prescripti on will be sent today. Re-educated on appropriate use of Narcan. Examination Category Sub-Category Detail Notes Category Not es General Examination GENERAL APPEARANCE: pleasant, in n o acute distress LUNGS: respirations regular and easy SKIN: warm and dry PSYCH: alert, oriented x4, speech clear, good eye contact, full range of affect/positive mood
== END 2024-11-25 13:28 | disposition home or self-care (01) ==
PROVIDERS: PCP Nurse Practitioner Family
DX: M47.896 Other spondylosis, lumbar region (principal)
CPT/HCPCS: 72148

== ENCOUNTER 2024-12-28 13:40 | Emergency (ER) | payer BC, SELFPAY ==
--- NOTE | 2024-12-28 13:45 | ED_ITS ---
HPI - URI/Sore Throat General Chief Complaint: Ear Stated Complaint: LT Ear Pain Time Seen by Provider: 12/28/24 13:45 Source: patient Mode of arrival: ambulatory Limitations: no limitations History of Present Illness HPI Narrative: Lucius is a 29-year-old male patient presenting to the clinic today with complaints of left ear discomfort, decreased hearing, and feeling as though there is fluid behind his ear. He reports this is been going on for approximately 2 days. No known fever, chills, body aches. Denies any ear pain at this time. Related Data Home Medications ?Medication ?Instructions ?Recorded ?Confirmed ?Last Taken ?Type buprenorphine 8 mg-naloxone 2 mg 1 film DIRECTED 08/24/24 08/24/24 Unknown History sublingual film Allergies Allergy/AdvReac Type Severity Reaction Status Date / Time No Known Allergies Allergy Unknown Verified 12/28/24 13:52 Review of Systems Review of Systems: Pertinent positives per HPI. Patient denies any fever, chills, rash, headache, visual changes, dizziness, cough, shortness of breath, chest pain, palpitations, nausea, vomiting, diarrhea, constipation, abdominal pain, or any urinary issues. FOR[facility]LY [facility] Past Medical History Medical History History of narcotic use History of ETOH abuse Surgical History Surgical History Hx of appendectomy Family History Family History Other No significant family history Social History Social History Smoking packs per day: 0.5 Smoking cigarettes per day: 10.0 Years smoked: 9 Smoking pack-years: 4.50 Smoking status: Current every day smoker Tobacco type: cigarettes Alcohol intake: current Alcohol use details: social Substance use: former Substance use type: marijuana Living arrangements: with family Gender identity (if verbalized by the patient): Male Comments At the time of my signature, I reviewed and agree with the nursing past medical, surgical, social, and family history. There is no relevant family history pertinent to the patient complaint. Exam Narrative: General: Well-developed, well nourished, in no apparent distress Head: Normocephalic, atraumatic Eyes: Pupils equally round and reactive to light bilaterally, EOM intact, sclera and conjunctive clear, no discharge, lids normal Ears: Right TMs intact and clear, left TM intact, bulging, red, ear canals clear, no drainage, grossly hearing normal. Nose: Nares patent, no discharge, no inflammation, no sinus tenderness. Mouth: Oral pharynx without lesions or masses, good dentition, MMM. Neck: Supple, trachea midline, no enlargement of anterior or posterior cervical nodes, no thyroid masses or goiter palpable. Cardio: Regular rate and rhythm, s1 and s2 normal, no murmur appreciated. Resp: Clear to auscultation bilaterally, no rhonchi, rales, wheezing or rubs Course Course Emergency Course: Portions of this record may have been created with voice recognition software. Level of Care: Express Care Visit Vital Signs Vital signs: Vital Signs Temperature 36.7 C 12/28/24 13:49 Pulse Rate 78 12/28/24 13:49 Respiratory Rate 17 12/28/24 13:49 Blood Pressure 111/71 12/28/24 13:49 Pulse Oximetry 96 12/28/24 13:49 Oxygen Delivery Room Air 12/28/24 13:49 Temperature 36.7 C 12/28/24 13:49 Pulse Rate 78 12/28/24 13:49 Respiratory Rate 17 12/28/24 13:49 Blood Pressure 111/71 12/28/24 13:49 Pulse Oximetry 96 12/28/24 13:49 Oxygen Delivery Room Air 12/28/24 13:49 Vital signs reviewed MDM - URI/Sore Throat MDM Narrative Medical decision making narrative: At the time of visit patient is resting comfortably on the exam table. Patient appears to be nontoxic. Plan: I suspect patient has left otitis media. Prescription for amoxicillin was sent to the pharmacy. Supportive measures were discussed with the patient and they voiced understanding discharge instructions and agrees to treatment plan. Return precautions reviewed Differential Diagnosis Differential diagnosis: Likely upper respiratory infection, otitis media, sinusitis, viral infection, bronchitis, influenza, pharyngitis and other (COVID, otitis externa, eustachian tube dysfunction, cerumen impaction, serous otitis) Discharge Plan Discharge Clinical Impression: Otitis media Qualifiers: Otitis media type: suppurative Chronicity: acute Laterality: left Recurrence: non-recurrent Spontaneous tympanic membrane rupture: without spontaneous rupture Qualified Code(s): H66.002 - Acute suppurative otitis media without spontaneous rupture of ear drum, left ear Patient Disposition: Home, Self-Care Condition: Stable Instructions: Antibiotic Form, Ear Infection (ED) Additional Instructions: Take any prescribed medications only as directed Tylenol/motrin as needed for pain May use heating pad to alleviate pain If you get recurrent ear infections it may be warranted to follow up with ENT. Follow up with your PCP in 3-5 days if symptoms persist. Patient Language: Thai Prescriptions: New amoxicillin 875 mg tablet 875 mg PO Q12H 10 Days Qty: 20 0RF No Action buprenorphine-naloxone 8-2 mg film 1 film DIRECTED amoxicillin 875 mg tablet 875 mg PO Q12H Qty: 20 0RF Follow-up/Referrals: UNKNOWN,DOCTOR [Non-Staff] - Time of Disposition: 13:52 Quality NIHSS Nursing Documentation ED NIHSS nursing documentation: reviewed/agree
[2024-12-28 13:49] VITALS: BP 111/71; PULSE 78; RESP 17; TEMP 36.7; O2SAT 96
--- OUTSIDE RECORDS SUMMARY | 2024-12-28 15:24 | XMS_ITS ---
Author Organization [facility] Address [address] [place] [address] Care Team Providers Care Course Instructor Name Role Phone Ignacio Bell Primary Care Provider Allergies No Known Allergies Results Component Value Reference Range Notes 12 Panel Urine Drug Screen Reviewed date:12/17/2024 09:15:02 AM Interpretation: Performing Lab: Notes/Report: THC POS RUTH POS MOP (OPI) neg AMP neg MET neg BAR neg BZO neg MDMA neg MTD neg OXY neg PCP neg BUP POS REASON FOR VISIT Walk-In Medications Medication SIG (Take, Route, Frequency, Duration) Notes Start Date End Date Status Buprenorphine HCl-Naloxone HCl 8-2 MG 1 film under the tongue and allow to dissolve Sublingual twice a day 12/17/2024 Active Naloxone HCl 4 MG/0.1ML as directed Nasally FOR OPIOID OVERDOSE 06/28/2024 Active Buprenorphine HCl-Naloxone HCl 8-2 MG 1 film under the tongue and allow to dissolve Sublingual Twice a day for 30 days 12/17/2024 Active hydrOXYzine HCl 50 MG 1 tablet [...] school 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 Stress is when someone feels tense, nervous, anxious, or can\t sleep at night because their mind is troubled Very much In the past year have you sp ent more than 2 nights in a row in a fdc, mcc, longterm center, or juvenile correctional facility? No Are you a refugee? No What country are you from? [place] Do you feel physically and e motionally safe where you currently live? Yes In the past year, have you b een afraid of your partner or ex-partner? No PRAPARE Score: 3 Tobacco Control (Standard) Question Answer Notes Tobacco use: Current smoker Vital Signs Weight 126 lb 2 oz lbs 12/17/2024 BMI 20.99 kg/m2 12/17/2024 Blood pressure systolic 110 mm Hg 12/18/19 25 Blood pressure diastolic 68 mm Hg 025 Oximetry 98 % 12/17/2024 Heart Rate 84 /min 12/17/2024 Height 65 in 12/17/2024 Respiratory Rate 16 /min 12/17/2024 Encounters Encounter Location Date Provider Diagnosis [address] [place] [address] 12/17/2024 Ignacio Bell Opioid use disorder F11.99 and Tobacco use disorder F17.200 Assessments Encounter Date Diagnosis (ICD Code) Assessment Notes Treatment Notes Treatment Clinical Notes Section Notes 12/17/2024 Opioid use disorder (ICD-10 - F11.99) 12/17/2024 Tobacco use disorder (ICD-10 - F17.200) 12/17/2024 Other Discussed medication side effects, adverse effects, risks, benefits, as well as interactions. Encouraged non-use of opioids. Has naloxone. Recommended participation in recovery groups/counseling services. Agrees to contact office with questions or concerns. Patient may self-administer their own medications or may self-administer their own oral medications per [facility] Protocol. Plan Of Treatment Medication Medication Name Sig Start Date Stop Date Notes Buprenorphine HCl-Naloxone H Cl 8-2 MG 1 film under the tongue and allow to dissolve Sublingual twice a day 12/17/2024 Buprenorphine HCl-Naloxone H Cl 8-2 MG 1 film under the tongue and allow to dissolve Sublingual Twice a day for 30 days 12/17/2024 Treatment Notes Assessment Notes Other Discussed medication side effects, adverse effects, risks, benefits, as well as interactions. Encouraged non-use of opioids. Has naloxone. Recommended participation in recovery groups/counseling services. Agrees to contact office with questions or concerns. 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 Was hospitalized N o. D epression Screening: PHQ-9 L ittle interest [...] ot at all T otal Score 0 C SSRS Interpretation and Follow Up Plan: CSSRS Interpretation and Follow Up Plan C SSRS Screen documented using SF Y es R isk Disposition from SF L ow - No Follow Up Plan Required F ollow Up Plan N o Follow Up Plan required at this time. S creening: Brown Suicide Severity Rating Scale (LF) D o you want to initiate with S creener form I nterpretation: L ow Risk 6 . Suicide Behavior Question: Have you ever done anything,started to do anything, or prepared to end your life? N o 2 . Suicidal Thoughts: Have you actually had any thoughts of killing yourself? N o 1 . Wish to be : Have you wished you were or wished you could go to sleep and not wake up? N o P reventative Health and Wellness follow-up: Action Plans for Clinical Quality Measures: H IV Screening: N ot addressed during this visit. See notes for details. . M AR follow-up: Appointment via Zoom. Asher presents for MAR f/u. Last appointment on 10/11/2024. Reports having left over medication to last until today. UDS positive for cocaine which client self-reports use over the past weekend. Reports no use of opioids. States he will be completing intake for counseling services next week. Medication Monitoring and Risk Mitigation U p-to-date on ASAM recommended lab testing??No P rescribed a buprenorphine product? Y es H as patient had a buprenorphine and metabolite lab ordered/collected? Y es (see notes for date of last metabolite testing) D ate of last buprenorphine and metabolite?10/11/2024 P rescription Drug Monitoring Program Review?Yes. No concerns at this time. P isabell to address any concerns identified: R ecommending increased engagement with recovery support. Cravings, Setbacks, Substance use, and Stressors C ravings since last visit: N o. Patient denies cravings since last visit. S etbacks since last visit? N o, patient denies setbacks since last visit. M isuse of substances since last visit: Y es, patient admits. See notes. S tressors N o, patient denies stressors at this time. Withdrawal and Intoxication Symptoms I ntoxication Symptoms: N o signs of intoxication are present during visit. W ithdrawal Symptoms: N o withdrawal signs are present during visit. Mental Health, Support System, and Social Determinants M ental Health Status S table. S upport Systems Include: P ersonal support system (see notes). father C ourt System Involvement? N o H ousing Stability: S table and safe housing. C urrently employed? U nemployed. R eferrals needed: N o referrals needed at this time. Recommended Wellness and Prevention Follow-up R ecommended Wellness and Prevention reviewed:?Yes. No additional orders/actions needed at this time. Other concerns: O ther Concerns? N o. N arcan need N o. Patient already has Narcan. * ROS: B asic ROS: Denies C hills. D enies S weats. D enies C onstipation. I nsomnia D enies. * Medical History: * Surgical History: A [...] ,Is this a supportive environment? Yes .. 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 I have housing A re you worried about losing your housing??No W hat is the highest level of school that you have finished? M ore than high school W hat is your current work situation? F ull time work I n the past year, have you or any family members you live with been unable to get any of the following when it was really needed? Check all that apply I do not have problems meeting my needs H as lack of transportation kept you from medical appointments, meetings, work or from getting things needed for daily living? N o H ow often do you see or talk to people that you care about and feel close to? (For example: talking to friends on the phone, visiting friends or family, going to lutheran or club meetings) 3 to 5 times a week H ow stressed are you? Stress is when someone feels tense, nervous, anxious, or can\t sleep at night because their mind is troubled V trino much I n the past year have you spent more than 2 nights in a row in a fdc, mcc, longterm center, or juvenile correctional facility? N o A re you a refugee? N o W hat [place] are you from[place] D o you feel physically and emotionally safe where you currently live? Y es I n the past year, have you been afraid of your partner or ex-partner? N o P RAPARE Score: 3 T obacco Use: T obacco Control (Standard) T obacco use: C urrent smoker M iscellaneous: M ethod of learning P referred method of learning: D emonstration * Medications: T akingNaloxone HCl 4 MG/0.1ML [...] .K.D.A.no[Allergies Verified] Objective: * Vitals: I nitials: cv, Wt:126 lb 2 oz, Ht: 65, BMI:20.99, BP:110/68, HR:84, Oxygen sat %:98, RR:16, Pain scale:0. * Examination: G eneral Examination: GENERAL APPEARANCE: a ppointment via Zoom. PSYCH: s peech clear, alert, oriented x4, thought process logical, goal directed. Assessment: * Assessment: 1. T obacco use disorder - F17.200 2 . O pioid use disorder - F11.99 (Primary) Plan: * Treatment: Value Reference Range T HC POS * C OC POS * M OP (OPI) neg * A MP neg * M ET neg * B AR neg * B ZO neg * M DMA neg * M TD neg * O XY neg * P CP neg * B UP POS 2.?Others? Notes: Discussed medication side effects, adverse effects, risks, benefits, as well as interactions. Encouraged non-use of opioids. Has naloxone. Recommended participation in recovery groups/counseling services. Agrees to contact office with questions or concerns.?? Clinical Notes: Patient may self-administer their own medications or may self- administer their own oral medications per [facility] Protocol.?? * Recommended Wellness and Pre vention Guidelines: * S tatus A lert L ast Done N ext Due A ction Taken N ONCOMPLIANT A lcohol use screening - 0 12/17/2024 - N ONCOMPLIANT H IV screening - 0 12/17/2024 - * Procedure Codes: 9 9000 SPECIMEN HANDLING * Preventive Medicine: Counseling: S MOKING: Patient counselled on the dangers of tobacco use and urged to quit. 0 12/17/2024 * Follow Up: 4 Weeks (Reason: DEC f/) * * OYEE TRAINING SPECIALIST Sign off status: Completed true * Provider: Lianna Bell MSN, HIGHWAY MAINTENANCE TECHNICIAN, HEARING AID DISPENSER-C Date: 0 12/17/2024 Generated for Slime ro/Chepe/Sandhyaitting on: 0 12/28/2024 03:24 PM CDT History and Physical Notes * HPI (History [...] Not at all Total Score: 0 Screening Brown Suicide Sev erity Rating Scale (LF) Do you want to initiate with: Screener form Interpretation:: Low Risk 6. Suicide Behavior Question: Have you ever done anything,started to do anything, or prepared to end your life?: No 2. Suicidal Thoughts: Have you actually had any thoughts of killing yourself?: No 1. Wish to be : Have you wished you were or wished you could go to sleep and not wake up?: No MAR follow-up Medication Monitorin g and Risk Mitigation Up-to-date on ASAM recommended lab testing?: No Prescribed a buprenorphine product?: Yes Has patient had a buprenorphine and metabolite lab ordered/collected?: Yes (see notes for date of last metabolite testing) Date of last buprenorphine and metabolite: 10/11/2024 Prescription Drug Monitoring Program Rev iew: Yes. No concerns at this time. Plan to address any concerns identified:: Recommending increased engagement with recovery support. Cravings, Setbacks, Substanc e use, and Stressors Cravings since last visit:: No. Patient denies cravings since last visit. Setbacks since last visit?: No, patient denies setbacks since last visit. Misuse of substances since last visit:: Yes, patient admits. See notes. Stressors: No, patient denies stressors at this time. Withdrawal and Intoxication Symptoms Int oxication Symptoms:: No signs of intoxication are present during visit. Withdrawal Symptoms:: No withdrawal sign s are present during visit. Mental Health, Support Syste m, and Social Determinants Mental Health Status: Stable. Support Systems Include:: Personal suppo rt system (see notes). father Court System Involvement?: No Housing Stability:: Stable and safe hous ing. Currently employed?: Unemployed. Referrals needed:: No referrals needed a t this time. Recommended Wellness and Pre vention Follow-up Recommended Wellness and Prevention reviewed:: Yes. No additional orders/actions needed at this time. Other concerns: Other Concerns?: No. Narcan need: No. Patient already has Ralph can. Preventative Health and Wellness follow-up Action Plans for Clinical Quality Measures: HIV Screening:: Not addressed during this visit. See notes for details. . CSSRS Interpretation and Follow Up Plan CSSRS Interpretation and Follow Up Plan CSSRS Screen documented using SF: Yes Risk Disposition from SF: Low - No Follo w Up Plan Required Follow Up Plan: No Follow Up Plan requir ed at this time. Examination Category Sub-Category Detail Notes Category Not es General Examination GENERAL APPEARANCE: appointment vi a Zoom PSYCH: speech clear, alert, oriented x4, thought process logical, goal directed
--- OUTSIDE RECORDS SUMMARY | 2024-12-28 15:24 | XMS_ITS | Referral Summary ---
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
--- OUTSIDE RECORDS SUMMARY | 2024-12-28 15:24 | XMS_ITS | Clinical Summary ---
Author Organization [facility] Address [id number] [place] [phone] Phone Care Team Providers Care Alodize Machine Operator Name Role Phone Unavailable Primary Care Provider Unavailabl e Allergies No known active allergies Encounters Date Type Department Care Team Description 12/14/2024 External Device Data [facility] ABSTRACTION Provider, Abstract 12/01/2024 External Device Data [facility] ABSTRACTION Provider, Abstract [...] age to complete this topic PNEUMOCOCCAL VACCINE 0-49 YEARS Aged Out No longer eligible based on patient's age to complete this topic Insurance [place] [id number]
--- OUTSIDE RECORDS SUMMARY | 2024-12-28 15:24 | XMS_ITS | Clinical Summary ---
Author Organization [facility] [employer] Address [address] [address] Care Team Providers Care Escalator Operator Name Role Phone Irma Grubbs MD Primary Care Provider [phone] Nicolasa Cevallos MD Unavailable [phone] Nicolasa Cevallos MD Unavailable [phone] Source Comments [facility],non-owned Affiliates and Associated Physician Practices is amultiple site organization consisting of ambulatory clinics and hospital sitesin [place], [place], [place] and [place]. This disclosure is being madepursuant to the Care Everywhere program and may not contain all information available regarding this patient. Last updated 18.[facility] [employer] Allergies No known active allergies Medications * [...] 63.5 kg (140 lb) 12/03/2019 8:54 PM INBOUND TELEMARKETER Height 165.1 cm (5' 5 ) 12/03/2019 8:54 PM INBOUND TELEMARKETER Body Mass Index 23.3 12/03/2019 8:54 PM INBOUND TELEMARKETER Plan of Treatment Health Maintenance Due Date [...] 11/18/1995, 11/14, 1994, Additional history exists MENINGOCOCCAL GROUPS A/C/Y/W VACCINE Aged Out 07/05/2008 No longer eligible based on patient's age to complete this topic HPV VACCINE Aged Out No longer eligi ble based on patient's age to complete this topic MENINGOCOCCAL (Group B) VACCINE SHARED DECISION-MAKING Aged Out No longer eligible based on patient's age to complete this topic Goals Goal Patient Goal Type Associated Problems Recent Progress Patient-Stated? Author Use safety retraint in car Lifestyle Izabela Tate, COLLIN Care Teams Escalator Operator Relationship Specialty Start Date End Date Irma Grubbs MD [address] [place] [address] PCP - General 12/06/19 Nicolasa Cevallos MD [address] [place] [address] PCP - Pediatrics 08/17/09 Nicolasa Cevallos MD [address] [place] [address] Pediatrics 12/06/19
--- OUTSIDE RECORDS SUMMARY | 2024-12-28 15:24 | XMS_ITS | Clinical Summary ---
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 Gender Identity Not on file Sexual Orientation Not on file Last Filed Vital Signs Vital Sign Reading Time Taken Comments Blood Pressure 114/61 09/23/2023 8:00 AM NATURAL SCIENCES MANAGER Pulse 68 09/23/2023 8:00 AM NATURAL SCIENCES MANAGER Temperature 36.1 C (97 F) 09/23/2023 8:00 AM NATURAL SCIENCES MANAGER Respiratory Rate 20 09/23/2023 8:00 AM NATURAL SCIENCES MANAGER Oxygen Saturation 98% 09/23/2023 8:00 AM NATURAL SCIENCES MANAGER Inhaled Oxygen Concentration - - Weight 59 kg (130 lb) 09/22/2023 4:31 PM NATURAL SCIENCES MANAGER Height 165.1 cm (5' 5 ) 09/22/2023 4:31 PM NATURAL SCIENCES MANAGER Body Mass Index 21.63 09/22/2023 4:31 PM NATURAL SCIENCES MANAGER Plan of Treatment Not on file Insurance MEDICAID [place] [id number] Advance Directives * Full Code (Latest Code Status on File) Date Activated Date Inactivated Comments 09/23/2023 4:35 PM 09/23/2023 6:41 PM CPR-Full T reatment: FULL ARREST: Attempt Resuscitation/CPR wit intubation and mechanical ventilation. PRE-ARREST: Use entire range of life support measures to stabilize the patient. Care Teams Watch Mechanic Relationship Specialty Start Date End Date Shantelle Petersen, SERGEANT OF OFFICERS, BOOKING MANAGER [address] [place] [phone] PCP - General Certified Nurse Practitioner 12/12/23
--- OUTSIDE RECORDS SUMMARY | 2024-12-28 15:25 | XMS_ITS | Patient Health Record ---
Author Organization [facility] Address [address] [place] [address] Care Team Providers Care Electric Pile Driver Operator Name Role Phone MaximinoernestoziaIgnacio Primary Care Provider Manjeet Donato Unavailable [phone] Jacoby Poe Unavailable [phone] Lilliana Salgado Unavailable [phone] Cristina Myles Unavailable [phone] Allergies No Known Allergies Results Component Value [...] NEG OXY NEG PCP NEG BUP POS Urine Culture,Comprehensive Reviewed date:01/01/2024 11:20:13 AM Interpretation: Performing [facility], [address] [place] [address], Phone - [phone], Director - [facility] Notes/Report: Urine Culture,Comprehensive Final report Result 1 Mixed urogenital barbara 600 Colonies/mL Verbal Order Reviewed date:01/06/2024 12:26:16 PM Interpretation: Performing Lab:[facility], [address] [place] [address], Phone - [phone], [facility] Notes/Report: See below: Comment: Please provide requested [...] account 01-01-2024 Logged by Codie Licona Test# [id number] Comprehensive Drug Analysis,Ur Test# [id number] Sent to Reference Lab Fentanyl Confirmation, Ur Reviewed date:05/11/2024 01:09:59 PM Interpretation: Performing Lab:[facility], [address] [place] [address], Phone - [phone], Director - [place] Notes/Report: [facility], [facility] FLEX or MAT drug testing: -Technical component - Data analysis performed at [facility], [address]. [phone]. Material Flow Engineer Letha Lin MD. FENTANYL / ANALOGUES Negative Fentanyl Not Detected Norfentanyl Not Detected Testing Threshold: fentanyl, 1.0 ng/mL; others, 5 ng/mL This test was developed and its performance characteristics determined by [facility]. It has not been cleared or approved by the Food and Drug Administration. 12 Panel Urine Drug Screen Reviewed date:12/30/2023 [...] neg OXY neg PCP neg BUP POS Written Authorization Reviewed date:01/20/2024 11:35:57 AM Interpretation: Performing Lab:[facility], [address] [place] [address], Phone - [phone], Director - [place] Notes/Report: Written Authorization Written Authorization Received. Authorization received from JENNY LACY 01-01-2024 Logged by rKisti Willoughby PDF Report Reviewed date:01/20/2024 11:35:57 AM Interpretation: Performing Lab:[facility], [address] [place] [address], Phone - [phone], Director - [place] Notes/Report: PDF Report1 LCLS Comprehensive Drug Analysis, Urine Reviewed date:01/20/2024 11:35:57 AM Interpretation:Abnormal Performing Lab:[facility], [address] [place] [address], Phone - [phone], Director - [place] Notes/Report: Summary Report (Summary) [...] test is not intended to distinguish between ytjcf-8-fomohzjczoaxadipcgij, the predominant form of THC in most herbal or marijuana-based products, and dkxca-9-qgqrgywokhhmoswwztre. Buprenorphine 6 ng/mg creat Norbuprenorphine 7 ng/mg [...] consultation, please call . ======== PDF . Buprenorphine and Metabolite (Urine test) Reviewed date:10/18/2024 08:57:32 AM Interpretation: Performing Lab:[facility], [address] [facility], [place], Phone - [phone], Director - [facility] Notes/Report: Clinical Information:[id number]:[id number] Buprenorphine Positive Confirmation p erformed by Mass Spectrometry Buprenorphine Positive Buprenorphine Conf, MS, UR 429 Cutoff=10 ng/m L Norbuprenorphine Positive Norbuprenorphine Conf, MS, UR 802 Cutoff=10 ng/mL 12 Panel Urine Drug Screen Reviewed date:10/11/2024 01:22:06 PM Interpretation: Performing Lab: Notes/Report: THC POS RUTH neg MOP (OPI) neg AMP neg MET neg BAR neg BZO neg MDMA neg MTD neg OXY neg PCP neg BUP POS 12 Panel Urine Drug Screen Reviewed date:01/06/2024 11:07:35 AM Interpretation: Performing Lab: Notes/Report: THC POS RUTH neg MOP (OPI) neg AMP neg MET neg BAR neg BZO neg MDMA neg MTD neg OXY neg PCP neg BUP POS 12 Panel Urine Drug Screen Reviewed date:06/28/2024 [...] Reviewed date:04/07/2024 10:48:34 AM Interpretation: Performing Lab:[facility], [address] [place], Phone - [phone], Director - [facility] Notes/Report: Clinical Information:[id number] Buprenorphine Positive Confirmation p erformed by Mass Spectrometry Buprenorphine Positive Buprenorphine Conf, MS, UR 261 Cutoff=10 ng/m L Norbuprenorphine Positive Norbuprenorphine Conf, MS, UR >2000 Cutoff=10 ng/mL 12 Panel Urine Drug Screen Reviewed date:07/12/2024 09:36:23 AM Interpretation: Performing Lab: Notes/Report: THC POS RUTH neg MOP (OPI) neg AMP neg MET neg BAR neg BZO neg MDMA neg MTD neg OXY neg PCP neg BUP POS 12 Panel Urine Drug Screen Reviewed date:04/02/2024 09:36:59 AM Interpretation: Performing Lab: Notes/Report: THC POS RUTH neg MOP (OPI) neg AMP neg MET neg BAR neg BZO neg MDMA neg MTD neg OXY neg PCP neg BUP POS Buprenorphine and Metabolite (Urine test) Reviewed date:01/13/2024 07:05:43 AM Interpretation:Normal Performing Lab:[facility], [address], [place], Phone - [phone], Director - [facility] Notes/Report: Clinical Information:[id number] Buprenorphine Positive Confirmation p erformed by Mass Spectrometry Buprenorphine Positive Buprenorphine Conf, MS, UR 366 Cutoff=10 ng/m L Norbuprenorphine Positive Norbuprenorphine Conf, MS, UR 639 Cutoff=10 ng/mL Reason For Referral No Information [...] school 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 Stress is when someone feels tense, nervous, anxious, or can\t sleep at night because their mind is troubled Very much In the past year have you sp ent more than 2 nights in a row in a half-way, longterm, fdc center, or juvenile correctional facility? No Are [...] W/U Status Risk Notes Problem Tobacco user (265084077) Nicotine dependence, unspecified, uncomplicated (F17.200) Active confirmed Problem Tobacco use (262680970) Tobacco use disorder (F17.200) Active confirmed Problem Mental disorder caused by drug (904768231) Opioid use disorder (F11.99) Active confirmed Vital Signs Heart Rate 84 /min 12/17/2024 Temperature 98.6 degrees Fahrenheit 10/11/2024 Respiratory Rate 16 /min 12/17/2024 Blood pressure diastolic 68 mm Hg 12/17/2024 Oximetry 98 % 12/17/2024 Height 65 in 12/17/2024 Blood pressure systolic 110 mm Hg 12/17/2024 Weight 126 lb 2 oz lbs 12/17/2024 BMI 20.99 kg/m2 12/17/2024 Encounters Encounter Location Date Provider Diagnosis [address] [address] 12/30/2023 Jenia Heavens Opioid use disorder F11.99 and Tobacco use disorder F17.[address] [address] 12/30/[address] [address] 01/06/2024 Jenia Heavens Opioid use disorder F11.99 and Tobacco use disorder F17.[address] [address] 01/06/[address] [address] 01/16/2024 Jenia Heavens Opioid use disorder F11.99 and Tobacco use disorder F17.[address] [address] 01/16/[address] [address] 02/16/2024 Cristina Myles Opioid use disorder F11.99 and Nicotine dependence, unspecified, uncomplicated F17.[address] [address] 02/16/2024 Lilliana Sanftleben [address] [place] [address] 03/10/2024 Cristina Szlufik Opioid use disorder F11.99 and Nicotine dependence, unspecified, uncomplicated F17.[address] [place] [address] 03/10/2024 Lilliana Sanftleben [address] [place] [address] 04/02/2024 Jacoby Poe Opioid use disorder F11.99 and Nicotine dependence, unspecified, uncomplicated F17.[address] [place] [address] 04/02/2024 Lilliana Sanftlen [address] [place] [address] 05/05/2024 Cristina Szlufik Opioid use disorder F11.99 and Nicotine dependence, unspecified, uncomplicated F17.[address] [place] [address] 05/05/2024 Lilliana Sanftleben [address] [place] [address] 06/10/2024 Cristina Szlufik Opioid use disorder F11.99 and Nicotine dependence, unspecified, uncomplicated F17.[address] [place] [address] 06/10/2024 Lilliana Sanftleben [address] [place] [address] 06/28/2024 Cristina Szlufik Opioid use disorder F11.99 and Nicotine dependence, unspecified, uncomplicated F17.[address] [place] [address] 07/12/2024 Cristina Szlufik Opioid use disorder F11.99 and Nicotine dependence, unspecified, uncomplicated F17.[address] [address] 08/09/2024 Cristina Norbertofielizabeth Opioid use disorder F11.99 and Nicotine dependence, unspecified, uncomplicated F17.[address] [address] 09/10/2024 Jacoby Poe Opioid use disorder F11.99 and Nicotine dependence, unspecified, uncomplicated F17.[address] [address] 10/11/2024 Cristina Myles Opioid use disorder F11.[address] [address] 12/17/2024 Ignacio Bell Opioid use disorder F11.99 and Tobacco use disorder F17.[address] [address] 01/16/2024 Ignacio Bell [address] [address] 05/05/2024 Manjeet Donato Contact with and (suspected) exposure to other communicable diseases Z20.[address] [address] 07/28/2024 Cristina Thorntonfik Opioid use disorder F11.99 Assessments Encounter Date Diagnosis (ICD Code) Assessment Notes Treatment Notes Treatment Clinical Notes Section Notes 12/30/2023 Tobacco use disorder (ICD-10 - F17.200) 12/30/2023 Opioid use disorder (ICD-10 - F11.99) 01/06/2024 Tobacco use disorder (ICD-10 - F17.200) 01/06/2024 Opioid use disorder (ICD-10 - F11.99) 01/16/2024 Tobacco use disorder (ICD-10 - F17.200) 01/16/2024 Opioid use disorder (ICD-10 - F11.99) 02/16/2024 Nicotine dependence, unspecified, uncomplicated (ICD-10 - F17.200) 02/16/2024 Opioid use disorder (ICD-10 - F11.99) 03/10/2024 Nicotine dependence, unspecified, uncomplicated (ICD-10 - F17.200) 03/10/2024 Opioid use disorder (ICD-10 - F11.99) 04/02/2024 Nicotine dependence, unspecified, uncomplicated (ICD-10 - F17.200) 04/02/2024 Opioid use disorder (ICD-10 - F11.99) 05/05/2024 Contact with and (suspected) exposure to other communicable diseases (ICD-10 - Z20.89) Patient Educated with: HIV testing Care Instructions.pdf (HIV testing Care Instructions.pdf) 05/05/2024 Nicotine dependence, unspecified, uncomplicated (ICD-10 - F17.200) 05/05/2024 Opioid use disorder (ICD-10 - F11.99) 06/10/2024 Nicotine dependence, unspecified, uncomplicated (ICD-10 - F17.200) 06/10/2024 Opioid use disorder (ICD-10 - F11.99) 06/28/2024 Opioid use disorder (ICD-10 - F11.99) 07/12/2024 Nicotine dependence, unspecified, uncomplicated (ICD-10 - F17.200) 07/12/2024 Opioid use disorder (ICD-10 - F11.99) No prescription sent today. Patient has several films left over. Will refill at next follow-up. 07/28/2024 Opioid use disorder (ICD-10 - F11.99) 08/09/2024 Nicotine dependence, unspecified, uncomplicated (ICD-10 - F17.200) 08/09/2024 Opioid use disorder (ICD-10 - F11.99) 09/10/2024 Nicotine dependence, unspecified, uncomplicated (ICD-10 - F17.200) 09/10/2024 Opioid use disorder (ICD-10 - F11.99) 10/11/2024 [...] services. Contact office with questions or concerns. 12/17/2024 Tobacco use disorder (ICD-10 - F17.200) 12/17/2024 Opioid use disorder (ICD-10 - F11.99) 06/28/2024 [...] even . Patient understands that ALL treating providers/physicia ns should be informed of buprenorphine use as [...] groups/counseling services. Patient understands that all treating providers/physicia ns should be informed of buprenorphine use as [...] groups/counseling services. Patient understands that all treating providers/physicia ns should be informed of buprenorphine use as part of a Medication Assisted Recovery program. Contact office with questions or concerns. 06/10/2024 Other Provided case management services to address social determinants of health needs and reduce barriers to health care services. 06/28/2024 Other Client agrees to take medication [...] program. Contact office with questions or concerns. 07/12/2024 Other Client agrees to take medication [...] even . Patient understands that ALL treating providers/physicia ns should be informed of buprenorphine use as part of a Medication Assisted Treatment program 12/17/2024 Other Discussed medication side effects, adverse effects, risks, benefits, as well as interactions. Encouraged non-use of opioids. Has naloxone. Recommended participation in recovery groups/counseling services. Agrees to contact office with questions or concerns. Patient may self-administe r their own medications or may self-administe r their own oral medications per [place] Protocol. Plan Of Treatment No Information Insurance Providers Payer Name Payer Address Payer Phone Subscriber Number Group Number Insured Name Patient Relationship to Insured Coverage Start Date Coverage End Date [facility] [address] [place] [address] [id number] Lucius Pascal Self - patient is the insured 3 MEDICAID [address] [place] [facility] [place] [address] [id number] Lucius Pascal Self - patient is the insured 3 Medical (General) History Medical History History ICD Code Opioid Use Disorder Surgical History Surgery Date(Month/Year) Appendectomy 2012 Hospitalization History Reason Date(Month/Year) Detox x1
--- OUTSIDE RECORDS SUMMARY | 2024-12-28 15:25 | XMS_ITS | Continuity of Care Document ---
Author Organization [facility] Address [address] [facility] [address] [place] [address] Phone Care Team Providers Care Abrasive Grader Name Role Phone Josseline Beatty Unavailable Unavailable Advance Directives Directive Yes / No Effective Date File Name No Information Encounters Encounter Description Practice Location Reason(s) For Visit Diagnoses Date Provider Providers Copied on Encounter [facility], [address], [place], [place], [id number], [place] tel:[phone] [facility] No Information [address]. [address] , [address], [place], [address], [place]. tel:[phone] Family History Family Member Type Diagnosis Age At Onset No Information Payers Payer name Insurance type Covered green party ID Authoriza tion(s) No Information Social [...]
--- OUTSIDE RECORDS SUMMARY | 2024-12-28 15:25 | XMS_ITS ---
Author Organization [facility] Address [address] [place] [address] Care Team Providers Care Strategic Sourcing Consultant Name Role Phone Ignacio Bell Primary Care Provider [phone] Cristina Myles Unavailable [phone] Allergies No Known Allergies REASON FOR VISIT [...] 10/11/2024 Encounters Encounter Location Date Provider Diagnosis [address] [place] [address] 10/11/2024 Cristina Myles Opioid use disorder F11.99 [...] * Lucius CORRALDOB: 4 (29 yo M)Acc No.[id number]:10/11/2024 Patient: Lucius EDMONDS Provider: Lianna Myles, MSN, APPLIANCE ADJUSTER, PMHNP-BC :1995 A ge:29 Y S ex:Male Date:10/11/2024 Address:[address] [place], [place] [address] Pcp:Ignacio Bell Subjective: * Chief Complaints: * [...] safe housing., 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 * Examination: A [facility] Physical Assessment: Intoxication and Withdrawal signs I ntoxication signs N o signs of intoxication are present during examination.Withdrawal Signs N o withdrawal signs are present during examination.. G eneral Examination: GENERAL APPEARANCE: a lert, [...] 4 Weeks (Reason: MAR f/u) * * ASSISTANT Sign off status: Completed true * Provider: Lianna Myles, MSN, APPLIANCE ADJUSTER, PMHNP-BC Date: Generated for Printing/Faxing/eTransmitting on: 0 12/28/2024 03:24 PM CDT History [...] and safe hous ing. 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 Referrals needed:: No referrals needed [...]
--- OUTSIDE RECORDS SUMMARY | 2024-12-28 15:25 | XMS_ITS | Clinical Summary ---
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 Care Teams Goldsmith Apprentice Relationship Specialty Start Date End Date Shantelle Petersen NP [address] [phone] PCP - General Nurse Practitioner 10/01/23
--- OUTSIDE RECORDS SUMMARY | 2024-12-28 15:25 | XMS_ITS ---
Author Organization [facility] Address [address] [place] [address] Care Team Providers Care Hat Checker Name Role Phone Ignacio Bell Primary Care Provider [phone] Natacha Poes Unavailable [phone] Allergies No Known Allergies Results Component Value [...] 09/10/2024 Encounters Encounter Location Date Provider Diagnosis [address] [place] [address] 09/10/2024 Jacoby Poe Opioid use disorder F11.99 [...] * Lucius CORRALDOB: [birth year] (29 yo M)Acc No.[id number]:09/10/2024 Patient: Lucius EDMONDS Provider: Kandace Poe, MSN, AGPCNP-BC :1995 A ge:29 Y S ex:Male Date:09/10/2024 Address:[address] [place], [place] [address] Pcp:Ignacio Bell Check In:10:07 AM BASE FILLER OPERATOR Subjective: * Chief Complaints: * M at [...] safe housing. 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 R eferrals needed: N o referrals needed [...] all T otal Score 0 S creening: Gray Suicide Severity Rating Scale (LF) D o [...] - * Procedure Codes: 9 9000 SPECIMEN [id number] BEHAV CHNG SMOKING 3-10 MIN * Preventive Medicine: Counseling: S MOKING: Patient counselled on the dangers of tobacco use and urged to quit. . * Follow Up: 4 Weeks * * FILLER OPERATOR Sign off status: Completed true * Provider: Kandace Poe, MSN, AGPCNP-BC Date: 1 11/10/2023 Generated for Printing/Faxing/eTransmitting on: 0 12/28/2024 03:24 [...] Not at all Total Score: 0 Screening Gray Suicide Sev erity Rating Scale (LF) Do [...] and safe hous ing. 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 Referrals needed:: No referrals needed a t [...]
--- OUTSIDE RECORDS SUMMARY | 2024-12-28 15:27 | XMS_ITS | Continuity of Care Document ---
Author Organization [facility] Address [address] [facility] [address] [place] [address] Phone Care Team Providers Care Yarn Dumper Name Role Phone Josseline Beatty Unavailable Unavailable Advance Directives Directive Yes / No Effective Date File Name No Information Encounters Encounter Description Practice Location Reason(s) For Visit Diagnoses Date Provider Providers Copied on Encounter [facility], [address], [place], [place], [id number], [place] tel:[phone] [facility] No Information [address] Manjarrez. [address] , [address], [place], [address], [place]. tel:[phone] Family History Family Member Type Diagnosis Age At Onset No Information Payers Payer name Insurance type Covered libertarian ID Authoriza tion(s) No Information Social History [...]
== END 2024-12-28 13:58 | disposition home or self-care (01) ==
PROVIDERS: Emergency Provider Nurse Practitioner Family
DX: H66.002 Acute suppurative otitis media without spontaneous rupture of ear drum, left ear (principal); F17.210 Nicotine dependence, cigarettes, uncomplicated
CPT/HCPCS: 99213; G0463

== ENCOUNTER 2025-03-05 12:07 | Emergency (ER) | payer BC, SELFPAY ==
--- OUTSIDE RECORDS SUMMARY | 2025-03-05 12:09 | XMS_ITS | Clinical Summary ---
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 Gender Identity Not on file Sexual Orientation [...] - season) 2024 2021, 04/01/2021 Influenza Vaccine (Season Ended) 2025 DTaP/Tdap/Td Vaccine (9 - Td or Tdap) 07/29/2032 07/29/2022, 02/12/2016, 07/05/2008, Additional history exists Hepatitis B Screening Completed 05/23/1995 , 1994, 1994 HPV Vaccines Aged Out No longer eligi ble based on patient's age to complete this topic Insurance [facility] Care Teams Cook At School Relationship Specialty Start Date End Date Shantelle Petersen NP PCP - General Nurse Practitioner 10/01/23
--- OUTSIDE RECORDS SUMMARY | 2025-03-05 12:09 | XMS_ITS | Clinical Summary ---
Author Organization [facility] Address [address] [place] [address] Phone Care Team Providers Care Head Resident Name Role Phone Unavailable Primary Care Provider Unavailabl e Allergies No known active allergies Encounters Date Type Department Care Team Description 03/02/2025 External Device Data [facility] ABSTRACTION Provider, Abstract 03/01/2025 External Device Data [facility] Provider, Abstract 02/08/2025 External Device Data [facility] Provider, Abstract 01/25/2025 External Device Data [facility] Provider, Abstract 01/11/2025 External Device Data [facility] Provider, Abstract 12/29/2024 External Device Data [facility] Provider, Abstract 12/29/2024 External Device Data [facility] [place] Provider, Abstract 12/14/2024 External Device Data [facility] [place]STRACTION Provider, [...] patient's age to complete this topic Insurance [facility]
--- OUTSIDE RECORDS SUMMARY | 2025-03-05 12:09 | XMS_ITS | Encounter Summary ---
Author Organization [facility] Address [address] [place] [address] Care Team Providers Care Friend Of The Court Name Role Phone Unavailable Primary Care Provider Unavailabl e Encounter Details Date Type Department Care Team (Late st Contact Info) Description 03/02/2025 External Device Data STL ABSTRACTION Provider, Abstract NO ADDRESS ON FILE Social History Tobacco Use Types Packs/Day Years Used Date Smoking Tobacco: Never Assessed Feeling Safe Answer Date Recorded Are you in a relationship wi th someone who hurts you emotionally and/or physically? No 05/27/2024 Sex and Gender Information Value Date Recorded Sex Assigned at Not on file Legal Sex Male 1:49 PM CDT Gender Identity Not on file Sexual Orientation Not on file documented as of this encounter Plan of Treatment Not on file documented as of this encounter Visit Diagnoses Not on filedocumented in this encounter
--- OUTSIDE RECORDS SUMMARY | 2025-03-05 12:09 | XMS_ITS | Patient Health Record ---
Author Organization [facility] Address [address] [place] [address] Care Team Providers Care Medical Receptionist Name Role Phone Ignacio Bell Primary Care Provider Tanmay Manjeet Unavailable [phone] Lui Jacoby Unavailable [phone] Lilliana Salgado Unavailable [phone] Cristina Myles Unavailable [phone] Allergies No Known Allergies Results Component Value Reference Range Notes 12 Panel Urine Drug Screen Reviewed date:05/05/2024 09:51:56 AM Interpretation: Performing Lab: Notes/Report: THC POS RUTH POS MOP (OPI) neg AMP neg MET neg BAR neg BZO neg MDMA neg MTD neg OXY neg PCP neg BUP POS Fentanyl Confirmation, Ur Reviewed date:05/11/2024 01:09:59 PM Interpretation: Performing Lab:[facility], [address] [facility] [address], Phone - [phone], Director - [place] Notes/Report: ToxAssure, [facility] FLEX or MAT drug testing: -Technical component - [facility] performed at [facility], [address] [place] [address], [phone]. [phone]. Hand Turner Letha Lin MD. FENTANYL / ANALOGUES Negative Fentanyl Not Detected Norfentanyl Not Detected Testing Threshold: fentanyl, 1.0 ng/mL; others, 5 ng/mL This test was developed and its performance characteristics determined by [facility]. It has not been cleared or approved by the Food and Drug Administration. 12 Panel Urine Drug Screen Reviewed date:10/11/2024 01:22:06 PM Interpretation: Performing Lab: Notes/Report: THC POS RUTH neg MOP (OPI) neg AMP neg MET neg BAR neg BZO neg MDMA neg MTD neg OXY neg PCP neg BUP POS 12 Panel Urine Drug Screen Reviewed date:08/09/2024 [...] Reviewed date:10/18/2024 08:57:32 AM Interpretation: Performing Lab:[facility], [address], [place], Phone - [phone], Director - PhDAbudu Notes/Report: Clinical Information:[id number] Buprenorphine Positive Confirmation p erformed by Mass Spectrometry Buprenorphine Positive Buprenorphine Conf, MS, UR 429 Cutoff=10 ng/m L Norbuprenorphine Positive Norbuprenorphine Conf, MS, UR 802 Cutoff=10 n g/mL 12 Panel Urine Drug Screen Reviewed date:12/17/2024 09:15:02 AM Interpretation: Performing Lab: Notes/Report: THC POS RUTH POS MOP (OPI) neg AMP neg MET neg BAR neg BZO neg MDMA neg MTD neg OXY neg PCP neg BUP POS 12 Panel Urine Drug Screen Reviewed date:07/12/2024 [...] 10:48:34 AM Interpretation: Performing Lab:[facility], [address], [place], Phone - [phone], Director - PhDAbu Notes/Report: Clinical Information:[id number] LM Buprenorphine Positive Confirmation p erformed by Mass Spectrometry Buprenorphine Positive Buprenorphine Conf, MS, UR 261 Cutoff=10 ng/m L Norbuprenorphine Positive Norbuprenorphine Conf, MS, UR >2000 Cutoff=10 n g/mL 12 Panel Urine Drug Screen Reviewed date:01/24/2025 09:11:58 AM Interpretation: Performing Lab: Notes/Report: THC POS RUTH neg MOP (OPI) neg AMP neg MET neg BAR neg BZO neg MDMA neg MTD neg OXY neg PCP neg BUP POS Reason For Referral No Information Medications Medication SIG (Take, Route, Frequency, Duration) Notes Start Date End Date Status hydrOXYzine HCl 50 MG 1 tablet as needed Orally Once a day for 30 days Active Naloxone HCl 4 MG/0.1ML as directed Nasally FOR OPIOID OVERDOSE 06/28/2024 Active Buprenorphine HCl-Naloxone HCl 8-2 MG 1 film under the tongue and allow to dissolve Sublingual Twice a day for 30 days 12/17/2024 Not-Taking Buprenorphine HCl-Naloxone HCl 8-2 MG 1 film under the tongue and allow to dissolve Sublingual twice a day 01/24/2025 Active Social History Tobacco Use: Social History [...] school 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 Stress is when someone feels tense, nervous, anxious, or can\t sleep at night because their mind is troubled Very much In the past year have you sp ent more than 2 nights in a row in a fpc, snf, penitentiary center, or juvenile correctional facility? No Are [...] W/U Status Risk Notes Problem Tobacco user (312263136) Nicotine dependence, unspecified, uncomplicated (F17.200) Active confirmed Problem Tobacco use (955393707) Tobacco use disorder (F17.200) Active confirmed Problem Opioid use disorder (3580812148) Opioid use disorder (F11.99) Active confirmed Vital Signs Heart Rate 99 /min 01/24/2025 Temperature 98.6 degrees Fahrenheit 10/11/2024 Respiratory Rate 16 /min 01/24/2025 Oximetry 96 % 01/24/2025 Blood pressure diastolic 70 mm Hg 01/24/2025 Height 65 in 01/24/2025 Blood pressure systolic 102 mm Hg 01/24/2025 Weight 127 lb 4 oz lbs 01/24/2025 BMI 21.17 kg/m2 01/24/2025 Encounters Encounter Location Date Provider Diagnosis [address] [place] [id number] 03/10/2024 Cristina Szlufik Opioid use disorder F11.99 and Nicotine dependence, unspecified, uncomplicated F17.[address] [place] [address] 03/10/2024 [facility] [address] [address] 04/02/2024 Jacoby Poe Opioid use disorder F11.99 and Nicotine dependence, unspecified, uncomplicated F17.[address] [place] [address] 04/02/2024 [facility] [address] [place] [address] 05/05/2024 Cristina Szlufik Opioid use disorder F11.99 and Nicotine dependence, unspecified, uncomplicated F17.[address] [address] 05/05/2024 [facility] [address] [address] 06/10/2024 Cristina Szlufik Opioid use disorder F11.99 and Nicotine dependence, unspecified, uncomplicated F17.[address] [address] 06/10/2024 Lilliana [facility] [address] [address] 06/28/2024 Cristina Szlufik Opioid use disorder F11.99 and Nicotine dependence, unspecified, uncomplicated F17.[address] [address] 07/12/2024 Cristina Szlufik Opioid use disorder F11.99 and Nicotine dependence, unspecified, uncomplicated F17.[address] [address] 08/09/2024 Cristina Szlufik Opioid use disorder F11.99 and Nicotine dependence, unspecified, uncomplicated F17.[address] [address] 09/10/2024 Jacoby Poe Opioid use disorder F11.99 and Nicotine dependence, unspecified, uncomplicated F17.[address] [address] 10/11/2024 Cristina Szlufik Opioid use disorder F11.[address] [address] 12/17/2024 Saharaestee Arabella Opioid use disorder F11.99 and Tobacco use disorder F17.[address] [address] 01/24/2025 Cristina Szlufik Opioid use disorder F11.[address] [address] 05/05/2024 Manjeet Donato Contact with and (suspected) exposure to other communicable diseases Z20.[address] [address] 07/28/2024 Cristina Szlufik Opioid use disorder F11.99 Assessments Encounter Date Diagnosis (ICD Code) Assessment Notes Treatment Notes Treatment Clinical Notes Section Notes 06/28/2024 Opioid use disorder (ICD-10 - F11.99) 05/05/2024 Nicotine dependence, unspecified, uncomplicated (ICD-10 - F17.200) 05/05/2024 Opioid use disorder (ICD-10 - F11.99) 05/05/2024 Contact with and (suspected) exposure to other communicable diseases (ICD-10 - Z20.89) Patient Educated with: HIV testing Care Instructions.pdf (HIV testing Care Instructions.pdf) 04/02/2024 Nicotine dependence, unspecified, uncomplicated (ICD-10 - F17.200) 04/02/2024 Opioid use disorder (ICD-10 - F11.99) 03/10/2024 Nicotine dependence, unspecified, uncomplicated (ICD-10 - F17.200) 03/10/2024 Opioid use disorder (ICD-10 - F11.99) 10/11/2024 [...] 09/10/2024 Opioid use disorder (ICD-10 - F11.99) 07/28/2024 Opioid use disorder (ICD-10 - F11.99) 06/10/2024 Nicotine dependence, unspecified, uncomplicated (ICD-10 - F17.200) 06/10/2024 Opioid use disorder (ICD-10 - F11.99) 01/24/2025 Opioid use disorder (ICD-10 - F11.99) 12/17/2024 Tobacco use disorder (ICD-10 - F17.200) 12/17/2024 Opioid use disorder (ICD-10 - F11.99) 08/09/2024 Nicotine dependence, unspecified, uncomplicated (ICD-10 - F17.200) 08/09/2024 Opioid use disorder (ICD-10 - F11.99) 07/12/2024 Nicotine dependence, unspecified, uncomplicated (ICD-10 - F17.200) 07/12/2024 Opioid use disorder (ICD-10 - F11.99) No prescription sent today. Patient has several films left over. Will refill at next follow-up. 06/28/2024 Nicotine dependence, unspecified, uncomplicated (ICD-10 - F17.200) 03/10/2024 Other Client agrees to take medication [...] self-administe r their own oral medications per [place] Protocol. 01/24/2025 Other Patient agrees to take medication as prescribed. [...] services. Contact office with questions or concerns. Patient may self-administe r their own medications or may self-administe r their own oral medications per [place] Protocol. Plan Of Treatment No Information Insurance Providers Payer Name Payer Address Payer Phone Subscriber Number Group Number Insured Name Patient Relationship to Insured Coverage Start Date Coverage End Date [facility] [address] [facility] [address] [place] [address] [id number] Lucius Pascal Self - patient is the insured 3 MEDICAID [address] [facility] [address] [place] [facility] [address] [id number] Lucius Pascal Self - patient is the insured 3 Medical (General) History Medical History History ICD Code Opioid Use Disorder Surgical History Surgery Date(Month/Year) Appendectomy 2012 Hospitalization History Reason Date(Month/Year) Detox x1
--- OUTSIDE RECORDS SUMMARY | 2025-03-05 12:09 | XMS_ITS | Clinical Summary ---
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 Gender Identity Not on file Sexual Orientation Not on file Last Filed Vital Signs Vital Sign Reading Time Taken Comments Blood Pressure 114/61 09/23/2023 8:00 AM MIXING MACHINE TENDER CORK GASKET Pulse 68 09/23/2023 8:00 AM MIXING MACHINE TENDER CORK GASKET Temperature 36.1 C (97 F) 09/23/2023 8:00 AM MIXING MACHINE TENDER CORK GASKET Respiratory Rate 20 09/23/2023 8:00 AM MIXING MACHINE TENDER CORK GASKET Oxygen Saturation 98% 09/23/2023 8:00 AM MIXING MACHINE TENDER CORK GASKET Inhaled Oxygen Concentration - - Weight 59 kg (130 lb) 09/22/2023 4:31 PM MIXING MACHINE TENDER CORK GASKET Height 165.1 cm (5' 5 ) 09/22/2023 4:31 PM MIXING MACHINE TENDER CORK GASKET Body Mass Index 21.63 09/22/2023 4:31 PM MIXING MACHINE TENDER CORK GASKET Plan of Treatment Not on file Insurance MEDICAID [place] [id number] Advance Directives * Full Code (Latest Code Status on File) Date Activated Date Inactivated Comments 09/23/2023 4:35 PM 09/23/2023 6:41 PM CPR-Full T reatment: FULL ARREST: Attempt Resuscitation/CPR wit intubation and mechanical ventilation. PRE-ARREST: Use entire range of life support measures to stabilize the patient. Care Teams Trust Manager Assistant Relationship Specialty Start Date End Date Shantelle Petersen, PARTITION MAKING MACHINE OPERATOR, STRESS ENGINEER [address] [place] [id number] PCP - General Certified Nurse Practitioner 12/12/23
--- OUTSIDE RECORDS SUMMARY | 2025-03-05 12:09 | XMS_ITS | Referral Summary ---
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
--- OUTSIDE RECORDS SUMMARY | 2025-03-05 12:09 | XMS_ITS | Clinical Summary ---
Author Organization [facility] Address [address] [place] [address] Care Team Providers Care Employee Benefits Coordinator Name Role Phone Irma Grubbs MD Primary Care Provider [phone] Nicolasa Cevallos MD Unavailable [phone] Nicolasa Cevallos MD Unavailable [phone] Source Comments [facility],non-owned Affiliates and Associated Physician Practices is amultiple site organization consisting of ambulatory clinics and hospital sitesin [place], [place], [place] and [place]. This disclosure is being madepursuant to the Care Everywhere program and may not contain all information available regarding this patient. Last updated 18.[facility] Allergies No known active allergies Medications * Be aware that medications may not be up to date on this document. Alwaysverify current medications with the patient. permethrin (ELIMITE) 5 % cream Apply to affected area. Apply head to toe, wash off in 8-12 hours. 60 g 0 1 Active methadone (DOLOPHINE) 5 MG tablet Take 5 mg by mouth once daily Active ibuprofen (MOTRIN) 400 MG tablet Take 1 tablet by mouth every 6 hours as needed for Pain 30 tablet 0 Active cyclobenzaprin e (FLEXERIL) 5 MG tablet Take 1 tablet by mouth 3 times daily as needed (Muscle spasms) 8 tablet 0 Active acetaminophen (TYLENOL) 500 MG tablet Take 1 tablet by mouth every 4 hours as needed for Fever or Pain Maximum allowable Acetaminophen amount = 4 Grams (4000 mg) / 24 hours. 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 Male 6:49 AM TIG WELDER Gender Identity Not on file Sexual Orientation [...] 63.5 kg (140 lb) 12/03/2019 8:54 PM TIG WELDER Height 165.1 cm (5' 5 ) 12/03/2019 8:54 PM TIG WELDER Body Mass Index 23.3 12/03/2019 8:54 PM TIG WELDER Plan of Treatment Health Maintenance Due Date Last Done Comments HIV SCREENING 2009 HEPATITIS C SCREENING 04/24/2012 PNEUMOCOCCAL VACCINE (1 of 2 - PCV) 2013 DTAP/TDAP/TD VACCINES (7 - Td or Tdap) 07/05/2018 07/05/2008, 06/04/1999, 11/18/1995, Additional history exists COVID-19 VACCINE (3 - season) 2024 2021, 04/01/2021 DEPRESSION SCREENING 10/13/2024 INFLUENZA VACCINE (Season Ended) 2025 ZOSTER VACCINE (1 of 2) 2044 HEPATITIS [...] retraint in car Lifestyle Izabela Tate, RN Insurance [employer] [place] [facility]LY [facility] THIRD DEMOCRAT LIABILITY Green Party Liability * Guarantor: LUCIUS CORRAL Account Type Relation to Patient Date of Phone Billing Address Personal/Family 1995 M[address] CORRAL [address] [place] [id number] Care Teams Employee Benefits Coordinator Relationship Specialty Start Date End Date Irma Grubbs MD [address] [place] [address] PCP - General 12/06/19 Nicolasa Cevallos MD [address] [place] [address] PCP - Pediatrics 08/17/09 Nicolasa Cevallos MD [address] [place] [address] Pediatrics 12/06/19
--- OUTSIDE RECORDS SUMMARY | 2025-03-05 12:10 | XMS_ITS | Continuity of Care Document ---
Author Organization [facility] Address [address] [facility] [address] [place] [address] Phone Care Team Providers Care Homeworker Name Role Phone Josseline Beatty Unavailable Unavailable Advance Directives Directive Yes / No Effective Date File Name No Information Encounters Encounter Description Practice Location Reason(s) For Visit Diagnoses Date Provider Providers Copied on Encounter [facility], [address], [place], [place], [id number], [place] tel:[phone] [facility] No Information [address]jar[address]. [address] , [address], [place], [address], [place]. tel:[phone] Family History Family Member Type Diagnosis Age [...]
--- NOTE | 2025-03-05 12:13 | ED.URI ---
HPI - URI/Sore Throat General Chief Complaint: Upper Respiratory Infection Stated Complaint: throat pain Time Seen by Provider: 03/05/25 12:33 Source: patient, RN notes reviewed and old records reviewed Mode of arrival: ambulatory Limitations: no limitations History of Present Illness HPI Narrative: 29-YEAR-OLD MALE PRESENTS TO [facility] WITH 5 DAY HISTORY URI SYMPTOMS, POSTNASAL DRAINAGE. YESTERDAY STARTED WITH A SORE THROAT, FEELING FEVERISH. STATES HE DID VOMIT 1 TIME LAST NIGHT. STATES HE HAS BEEN TAKING DAYQUIL AND NYQUIL. STATES THAT HE DID FEEL BETTER TODAY BUT WANTED TO GET CHECKED out Onset (ago): day(s) (5) Treatments prior to arrival: cold medicine Related Data Home Medications ?Medication ?Instructions ?Recorded ?Confirmed ?Last Taken ?Type buprenorphine 8 mg-naloxone 2 mg 1 film DIRECTED 08/24/24 08/24/24 Unknown History sublingual film Allergies Allergy/AdvReac Type Severity Reaction Status Date / Time No Known Allergies Allergy Unknown Verified 03/05/25 12:18 Review of Systems Review of Systems: All systems reviewed & are unremarkable except as noted in HPI and below Constitutional: Constitutional: Reports as per HPI ENT: Reports as per HPI Cardiovascular: Cardiovascular: Reports no additional cardiovascular complaints, Denies chest pain and Denies dyspnea Respiratory: Respiratory: Reports no additional respiratory complaints, Denies chest congestion, Denies cough and Denies dyspnea Musculoskeletal: Musculoskeletal: Reports no additional musculoskeletal complaints Integumentary/Breasts: Skin/Breast: Reports system reviewed and no additional complaints, except as docu PMFSH Past Medical History Medical History History of narcotic use History of ETOH abuse Surgical History Surgical History Hx of appendectomy Family History Family History Other No significant family history Social History Social History Smoking packs per day: 0.5 Smoking cigarettes per day: 10.0 Years smoked: 9 Smoking pack-years: 4.50 Smoking status: Current every day smoker Tobacco type: cigarettes Alcohol intake: current Alcohol use details: social Substance use: former Substance use type: marijuana Living arrangements: with family Gender identity (if verbalized by the patient): Male Comments At the time of my signature, I reviewed and agree with the nursing past medical, surgical, social, and family history. There is no relevant family history pertinent to the patient complaint. Exam Const: General: cooperative, healthy appearing, comfortable, no acute distress, well developed, alert and well nourished Nutritional Appearance: well nourished Orientation/consciousness: patient oriented x3 Limitations: no limitations HENMT: Head: normal to inspection Ears: hearing grossly normal bilaterally, external ears normal, TM's normal bilaterally, EAC's normal, mastoids normal and no periauricular adenopathy Face/Nose/Sinus: Normal external nose present, Normal nares present and Nasal discharge present clear bilateral Face and sinus: normal facial exam and face symmetric Mouth: Yes Normal oral and palatal mucosa present, Yes lip normal, Yes tongue normal and Yes moist mucous membranes Throat: posterior oropharynx normal, uvula midline, postnasal drainage and no uvular edema Eyes: General: appearance normal, both eyes and all related structures Alignment and Position: alignment normal Neck: Neck: normal visual inspection, full ROM, no lymphadenopathy and no meningeal signs Chest: Chest palpation & inspection: normal inspection of the chest Resp: Effort & Inspection: normal respiratory effort and able to speak in complete sentences Auscultation: clear to auscultation bilaterally, no crackles, no rales, no rhonchi and no wheezes Cardio: Rate: regular rate Skin: General skin exam: normal color and no rashes or lesions noted Neuro: General: patient oriented x3, gait normal, moves all extremities and no meningeal signs Cognition (Neuro): normal cognition Speech: normal speech Gait exam (Neuro): Normal gait present Extrem: General: normal to inspection, full ROM, capillary refill normal and normal gait Psych: Appearance: grossly normal and well kempt Mental Status: mental status grossly normal Speech and movement: Normal speech and movement present and Clear speech present Affect: normal affect Attitude: cooperative Course Course Level of Care: Express Care Visit Vital Signs Vital signs: Vital Signs Temperature 97.7 F 03/05/25 12:19 Pulse Rate 99 03/05/25 12:19 Respiratory Rate 16 03/05/25 12:19 Blood Pressure 108/70 03/05/25 12:19 Pulse Oximetry 97 03/05/25 12:19 Oxygen Delivery Room Air 03/05/25 12:19 Temperature 97.7 F 03/05/25 12:19 Pulse Rate 99 03/05/25 12:19 Respiratory Rate 16 03/05/25 12:19 Blood Pressure 108/70 03/05/25 12:19 Pulse Oximetry 97 03/05/25 12:19 Oxygen Delivery Room Air 03/05/25 12:19 Reviewed MDM - URI/Sore Throat MDM Narrative Medical decision making narrative: Patient sitting exam. Patient is nontoxic stable. Patient presents with 5 day history of URI symptoms, improved today. Patient is appropriate for outpatient treatment with close follow Flu, COVID, strep were negative Discharge instructions reviewed with patient, as well as provided in writing per nursing staff. The instructions also include specific and strict return/GO TO THE ER as well as f/u information. All questions have been answered, and the patient deny any further questions with discharge and discharge plan. Some parts of this dictation were generated by voice recognition software and may contain typographical and/or grammatical inaccuracies. Differential Diagnosis Differential diagnosis: Likely upper respiratory infection, otitis media, sinusitis, viral infection, bronchitis, influenza and pharyngitis Lab Data Labs: Lab Results 03/05/25 Range/Units 12:45 POC Influenza A Ag Negative (Negative) POC Influenza B Ag Negative (Negative) POC SARS CoV-2 Ag Negative (Negative) POC Grp A Strep Screen Negative (Negative) Reviewed Critical Care Time Critical Care Time Critical Care Time: No Discharge Plan Discharge Clinical Impression: PND (post-nasal drip) Upper respiratory infection Qualifiers: URI type: unspecified viral URI Qualified Code(s): J06.9 - Acute upper respiratory infection, unspecified Patient Disposition: Home Condition: Stable Instructions: Antibiotic Form, Upper Respiratory Infection (DC), Postnasal Drip (DC) Additional Instructions: Your rapid strep swab was negative today at [facility]. A throat culture will be sent to the laboratory for further testing. If the test is positive, you will receive a phone call within 48 hours and an appropriate antibiotic will be initiated at that time. Your rapid COVID test were negative Your rapid flu test was negative Your symptoms are likely due to a viral illness, which is not treated with antibiotics. Typically viral infections last 7-10 days, can linger for couple of weeks. It is very important to treat your symptoms. Drink plenty of water, Gatorade, Pedialyte, ice pops or Jell-O. -Alternate Tylenol and Motrin per package directions for fever or pain. You can alternate every 4 hours -Antihistamine medication such as Zyrtec/Claritin/Keiko during the day can help improve symptoms. -doing daily nasal irrigations can help relieve pressure your sinuses. Things like a Neti pot -Use Flonase twice a day for 5 days then daily to help reduce the inflammation and dry up your sinuses. -You can also use Mucinex. Be sure to drink plenty of water with this medication at least 8 ounces with every dose and it is important to drink 8 to 10 glasses of water per day. Water is a natural decongestant -Eat and drink things that are easy to swallow, like tea or soup, or popsicles. -Oral rinses such as: Salt water gargles and/or may use topical anesthetic (eg. Chloraseptic spray) or lozenges to relieve dryness or throat pain). -Frequent hand washing or hand kieselguhr regenerator operator is one of the best ways to prevent spread of infection. -Using a vaporizer or humidifier at night will also help thin secretions and help with coughing up phlegm. -Follow up with primary care provider in 7-10 days if condition is not improving - For new or worsening symptoms go directly to the nearest ER Patient Language: Lao Prescriptions: No Action buprenorphine-naloxone 8-2 mg film 1 film DIRECTED Follow-up/Referrals: PHYSICIAN,INSTRUCTOR TECHNICAL TRAINING [Primary Care Provider] - Stand Alone Forms: Work/School Release IP Time of Disposition: 12:58
--- OUTSIDE RECORDS SUMMARY | 2025-03-05 12:14 | XMS_ITS | Continuity of Care Document ---
Author Organization [facility] Address [address] [facility] [address] [place] [address] Phone Care Team Providers Care Ice Puller Name Role Phone Josseline Beatty Unavailable Unavailable Advance Directives Directive Yes / No Effective Date File Name No Information Encounters Encounter Description Practice Location Reason(s) For Visit Diagnoses Date Provider Providers Copied on Encounter [facility], [address], [place], [place], [id number], [place] tel:[phone] [facility] No Information [address] , [address], [place], [address], [place]. tel:[phone] Family History Family Member Type Diagnosis Age [...]
[2025-03-05 12:19] VITALS: BP 108/70; PULSE 99; RESP 16; TEMP 36.5; O2SAT 97
[2025-03-05 12:47] LABS: EDCOVIDSCREEN Negative (Negative); EDINFLUASCREEN Negative (Negative); EDINFLUBSCREEN Negative (Negative); EDSTREPNEGPOS1 Negative (Negative)
== END 2025-03-05 13:10 | disposition home or self-care (01) ==
PROVIDERS: Emergency Provider Nurse Practitioner; Referring Provider Emergency Medicine
DX: R09.82 Postnasal drip (principal); J06.9 Acute upper respiratory infection, unspecified; Z20.822 Contact with and (suspected) exposure to COVID-19; F17.210 Nicotine dependence, cigarettes, uncomplicated
CPT/HCPCS: 87081; 87426; 87804; 87880; 99213; G0463

== ENCOUNTER 2025-03-08 16:31 | Emergency (ER) | payer BC, SELFPAY ==
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
--- OUTSIDE RECORDS SUMMARY | 2025-03-08 16:33 | XMS_ITS | Referral Summary ---
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
--- OUTSIDE RECORDS SUMMARY | 2025-03-08 16:33 | XMS_ITS | Clinical Summary ---
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
--- OUTSIDE RECORDS SUMMARY | 2025-03-08 16:33 | XMS_ITS | Continuity of Care Document ---
Author Organization [facility] Address [address] [facility] [address] [place] [address] Phone Care Team Providers Care Fast Food Worker Name Role Phone Josseline Beatty Unavailable Unavailable Advance Directives Directive Yes / No Effective Date File Name No Information Encounters Encounter Description Practice Location Reason(s) For Visit Diagnoses Date Provider Providers Copied on Encounter [facility], [address], [place], [place], [id number], [place] tel:[phone] [facility] No Information [address] , [address], [place], [address], [place]. tel:[phone] Family History Family Member Type Diagnosis Age [...]
--- OUTSIDE RECORDS SUMMARY | 2025-03-08 16:33 | XMS_ITS | Patient Health Record ---
Author Organization [facility] Address [address] [place] [address] Care Team Providers Care Program Host Name Role Phone Ignacio Bell Primary Care Provider Manjeet Donato Unavailable [phone] Jacoby Poe Unavailable [phone] Lilliana Salgado Unavailable [phone] Cristina Myles Unavailable [phone] Allergies No Known Allergies Results Component Value Reference Range Notes 12 Panel Urine Drug Screen Reviewed date:10/11/2024 01:22:06 PM Interpretation: Performing Lab: Notes/Report: THC POS RUTH neg MOP (OPI) neg AMP neg MET neg BAR neg BZO neg MDMA neg MTD neg OXY neg PCP neg BUP POS Buprenorphine and Metabolite (Urine test) Reviewed date:10/18/2024 08:57:32 AM Interpretation: Performing Lab:[facility] [place], [address], [place], Phone - [phone], Director - PhDAbudu Notes/Report: Clinical Information:[id number] LM Buprenorphine Positive Confirmation p erformed by Mass Spectrometry Buprenorphine Positive Buprenorphine Conf, MS, UR 429 Cutoff=10 ng/m L Norbuprenorphine Positive Norbuprenorphine Conf, MS, UR 802 Cutoff=10 n g/mL 12 Panel Urine Drug Screen Reviewed date:09/10/2024 10:24:34 AM Interpretation: Performing Lab: Notes/Report: THC POS RUTH NEG MOP (OPI) NEG AMP NEG MET NEG BAR NEG BZO NEG MDMA NEG MTD NEG OXY NEG PCP NEG BUP POS 12 Panel Urine Drug Screen Reviewed date:12/17/2024 09:15:02 AM Interpretation: Performing Lab: Notes/Report: THC POS RUTH POS MOP (OPI) neg AMP neg MET neg BAR neg BZO neg MDMA neg MTD neg OXY neg PCP neg BUP POS 12 Panel Urine Drug Screen Reviewed date:01/24/2025 [...] Interpretation: Performing Lab:[facility], [address], [place], Phone - [phone], Director - PhDAbudu Notes/Report: Clinical Information:[id number] Buprenorphine Positive Confirmation p erformed by Mass Spectrometry Buprenorphine Positive Buprenorphine Conf, MS, UR 261 Cutoff=10 ng/m L Norbuprenorphine Positive Norbuprenorphine Conf, MS, UR >2000 Cutoff=10 n g/mL 12 Panel Urine Drug Screen Reviewed date:05/05/2024 [...] Ur Reviewed date:05/11/2024 01:09:59 PM Interpretation: Performing Lab:[facility], [address] [facility], Phone - [phone], Director - [place] Notes/Report: ToxAssure, [facility] FLEX or MAT drug testing: -Technical component - [facility] performed at [facility], [address] [place] [address], [place], [address]. [phone]. Director Of Infection Prevention Letha Lin MD. FENTANYL / ANALOGUES Negative Fentanyl Not Detected Norfentanyl Not Detected Testing Threshold: fentanyl, 1.0 ng/mL; others, 5 ng/mL This test was developed and its performance characteristics determined by [facility]. It has not been cleared or approved by the Food and Drug Administration. 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 Stress is when someone feels tense, nervous, anxious, or can\t sleep at night because their mind is troubled Very much In the past year have you sp ent more than 2 nights in a row in a long-term, mcfp, mcfp center, or juvenile correctional facility? No Are [...] W/U Status Risk Notes Problem Tobacco user (532892405) Nicotine dependence, unspecified, uncomplicated (F17.200) Active confirmed Problem Tobacco use (940981828) Tobacco use disorder (F17.200) Active confirmed Problem Opioid use disorder (1036298992) Opioid use disorder (F11.99) Active confirmed Vital Signs Heart Rate 99 /min 01/24/2025 Temperature 98.6 degrees Fahrenheit 10/11/2024 Respiratory Rate 16 /min 01/24/2025 Blood pressure diastolic 70 mm Hg 01/24/2025 Oximetry 96 % 01/24/2025 Height 65 in 01/24/2025 Blood pressure systolic 102 mm Hg 01/24/2025 Weight 127 lb 4 oz lbs 01/24/2025 BMI 21.17 kg/m2 01/24/2025 Encounters Encounter Location Date Provider Diagnosis [address] [place] [phone] 03/10/2024 Cristina Szlufik Opioid use disorder F11.99 and Nicotine dependence, unspecified, uncomplicated F17.[address] [place] [address] 03/10/2024 [facility] [address] [address] 04/02/2024 Jacoby Poe Opioid use disorder F11.99 and Nicotine dependence, unspecified, uncomplicated F17.[address] [place] [address] 04/02/2024 [facility]ill[facility] [address] [place] [address] 05/05/2024 Cristina Szlufik Opioid use disorder F11.99 and Nicotine dependence, unspecified, uncomplicated F17.[address] [address] 05/05/2024 [facility]illiana [facility] [address] [address] 06/10/2024 Cristina Szlufik Opioid use disorder F11.99 and Nicotine dependence, unspecified, uncomplicated F17.[address] [address] 06/10/2024 Lilliana Dietrichgladys [address] [address] 06/28/2024 Cristina Szlufik Opioid use disorder F11.99 and Nicotine dependence, unspecified, uncomplicated F17.[address] [address] 07/12/2024 Cristina Szlufik Opioid use disorder F11.99 and Nicotine dependence, unspecified, uncomplicated F17.[address] [address] 08/09/2024 Cristina Szlufik Opioid use disorder F11.99 and Nicotine dependence, unspecified, uncomplicated F17.[address] [address] 09/10/2024 Jacoby Poe Opioid use disorder F11.99 and Nicotine dependence, unspecified, uncomplicated F17.[address] [address] 10/11/2024 Cristina Szlufik Opioid use disorder F11.[address] [address] 12/17/2024 Jenestee Arabella Opioid use disorder F11.99 and Tobacco use disorder F17.[address] [address] 01/24/2025 Cristina Szlufik Opioid use disorder F11.[address] [address] 05/05/2024 Manjeet Donato Contact with and (suspected) exposure to other communicable diseases Z20.89 [address] [address] 07/28/2024 Cristina Szlufik Opioid use disorder F11.99 Assessments Encounter Date Diagnosis (ICD Code) Assessment Notes Treatment Notes Treatment Clinical Notes Section Notes 03/10/2024 Nicotine dependence, unspecified, uncomplicated (ICD-10 - [...] 12/17/2024 Opioid use disorder (ICD-10 - F11.99) 01/24/2025 Opioid use disorder (ICD-10 - F11.99) 06/28/2024 [...] self-administe r their own oral medications per [place] [facility] Protocol. 01/24/2025 Other Patient agrees to take [...] self-administe r their own oral medications per [place] Protocol. Plan Of Treatment No Information Insurance Providers Payer Name Payer Address Payer Phone Subscriber Number Group Number Insured Name Patient Relationship to Insured Coverage Start Date Coverage End Date [facility] [address] [address] [place] [address] [id number] Lucius Pascal Self - patient is the insured 3 MEDICAID [address] [facility] [address] [address] [id number] Lucius Pascal Self - patient is the insured 3 Medical (General) History Medical History History ICD Code Opioid Use Disorder Surgical History Surgery Date(Month/Year) Appendectomy 2012 Hospitalization History Reason Date(Month/Year) Detox x1
--- OUTSIDE RECORDS SUMMARY | 2025-03-08 16:33 | XMS_ITS | Clinical Summary ---
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 SPECIALIST Gender Identity Not on file Sexual Orientation Not on file Last Filed Vital Signs Vital Sign Reading Time Taken Comments Blood Pressure 114/61 09/23/2023 8:00 AM TECHNICAL DOCUMENTATION SPECIALIST Pulse 68 09/23/2023 8:00 AM TECHNICAL DOCUMENTATION SPECIALIST Temperature 36.1 C (97 F) 09/23/2023 8:00 AM TECHNICAL DOCUMENTATION SPECIALIST Respiratory Rate 20 09/23/2023 8:00 AM TECHNICAL DOCUMENTATION SPECIALIST Oxygen Saturation 98% 09/23/2023 8:00 AM TECHNICAL DOCUMENTATION SPECIALIST Inhaled Oxygen Concentration - - Weight 59 kg (130 lb) 09/22/2023 4:31 PM TECHNICAL DOCUMENTATION SPECIALIST Height 165.1 cm (5' 5) 09/22/2023 4:31 PM TECHNICAL DOCUMENTATION SPECIALIST Body Mass Index 21.63 09/22/2023 4:31 PM TECHNICAL DOCUMENTATION SPECIALIST Plan of Treatment Not on file Insurance MEDICAID [place] [employer] [id number] Advance Directives * Full Code (Latest Code Status on File) Date Activated Date Inactivated Comments 09/23/2023 4:35 PM 09/23/2023 6:41 PM CPR-Full T reatment: FULL ARREST: Attempt Resuscitation/CPR wit intubation and mechanical ventilation. PRE-ARREST: Use entire range of life support measures to stabilize the patient. Care Teams Charcoal Burner Beehive Kiln Relationship Specialty Start Date End Date Shantelle Petersen, CRIMINAL RESEARCHER, HVAC INSTRUCTOR [address] [place] [address] PCP - General Certified Nurse Practitioner 12/12/23
--- OUTSIDE RECORDS SUMMARY | 2025-03-08 16:33 | XMS_ITS | Clinical Summary ---
Author Organization [facility] Address [address] [place] [phone] Phone Care Team Providers Care Carburetor Specialist Name Role Phone Unavailable Primary Care Provider Unavailabl e Allergies No known active allergies Encounters Date Type Department Care Team Description 03/03/2025 External Device Data [facility] ABSTRACTION Provider, Abstract 03/02/2025 External Device Data [facility] ABSTRACTION Provider, [...] 1:50 PM CDT Height 165.1 cm (5' 5) 05/27/2024 1:50 PM CDT Body Mass Index [...]
--- OUTSIDE RECORDS SUMMARY | 2025-03-08 16:33 | XMS_ITS | Clinical Summary ---
Author Organization [facility] [employer] Address [address] [place] [address] Care Team Providers Care Hunting Sales Leader Name Role Phone Irma Grubbs MD Primary Care Provider [phone] Nicolasa Cevallos MD Unavailable [phone] Nicolasa Cevallos MD Unavailable [phone] Source Comments [facility],non-owned Affiliates and Associated Physician Practices is amultiple site organization consisting of ambulatory clinics and hospital sitesin [place], [place], [place] and [place]. This disclosure is being madepursuant to the Care Everywhere program and may not contain all information available regarding this patient. Last updated 18.[facility] [employer] Allergies No known active allergies Medications * [...] on file Legal Sex Male 6:49 AM VP PLAT[employer] Gender Identity Not on file Sexual Orientation [...] 63.5 kg (140 lb) 12/03/2019 8:54 PM [employer] Height 165.1 cm (5' 5) 12/03/2019 8:54 PM [employer] Body Mass Index 23.3 12/03/2019 8:54 PM VP [employer] Plan of Treatment Health Maintenance Due Date [...] Tate, RN Insurance [employer] [place] [facility] THIRD LIBERTARIAN LIABILITY Democrat Liability * Guarantor: LUCIUS CORRAL Account Type Relation to Patient Date of Phone Billing Address Personal/Family 1995 [address] CORRAL [address] [place] [id number] Care Teams Hunting Sales Leader Relationship Specialty Start Date End Date Irma Grubbs MD [address] [place] [address] PCP - General 12/06/19 Nicolasa Cevallos MD [address] [place] [address] PCP - Pediatrics 08/17/09 Nicolasa Cevallos MD [address] [place] [address] Pediatrics 12/06/19
--- OUTSIDE RECORDS SUMMARY | 2025-03-08 16:35 | XMS_ITS | Data Portability ---
Author Organization [facility], Main Office Address [address] [place] [address] Assessment No assessment recorded. Plan of Treatment Reminders Order Date Submit Date Provider Last Modified By Organization Details Last Modified Time Details Appointments None recorded. Lab lipid panel, serum [address] (Lab), [address] [place], [address], 3 08:05:49 TSH, serum, reflex free T4 [address] (Lab), [address] [place], [address], 3 08:05:49 CBC w/ auto diff [address] (Lab), [address] [place], [address], 3 08:05:48 vitamin B12 + folate, serum or blood [address] (Lab), [address] [place], [address], 3 08:05:48 iron + TIBC + ferritin, serum [address] (Lab), [address] [place], [address], 3 08:05:49 CMP, serum or plasma [address] (Lab), [address] [place], [address], 3 08:05:49 HbA1c (hemoglobin A1c), blood [address] (Lab), [address] [place], [address], 3 08:05:49 Referral physical therapist referral - *Please call pt to schedule* 2023 024 [facility], [address] [place] [address], [place], [address], 4 09:18:49 neurologica l surgeon referral - Please call patient to schedule an appointment . Thank you. 2023 024 [email or web address] Mauricio Li MD, 7 [facility], Floor [address], [place], [address], 4 08:52:11 psychiatris t referral 2023 024 [email or web address] Not available 4 16:25:59 Procedures None recorded. Surgeries None recorded. Imaging None recorded. Medication Orders meloxicam 7.5 mg tablet 2023 024 [facility], [address], [place], [id number], 4 15:18:42 hydroxyzine HCl 25 mg tablet 2023 024 [facility] #07877, [address], [place], [id number], 4 15:02:35 trazodone 50 mg tablet 2022 023 [email or web address] [facility] #88196, [address], [place], [id number], 4 15:49:10 Patient TargetsNo targets recorded. Patient Instructions Encounter Date Encounter Id Patient Instructions Last Modified By Organization Details Last Modified Time 08/28/2023 [id number] FU in 2-3 weeks for insomnia, lab review [email or web address] Not available 08/28/2023 11:54:50 Reason for Referral Psychiatrist Referral for Fe ntanyl dependence Referring Physician: Gianna Morelos [facility], Encounter Date: 12/29/2023 Physical Therapist Referral for Lumbago with sciatica *Please call pt to schedule* Referring Physician: Gianna Morelos [facility], Encounter Date: 05/24/2024 Neurological Surgeon Referra l for Lumbago with sciatica Please call patient to schedule an appointment. Thank you. Referring Physician: Gianna Morelos [facility], Encounter Date: 05/24/2024 Problems Name Problem SNOMED Code Status Onset Date Resolution Date Notes Provider Name and Address Organization Details Recorded Time Insomnia 450584658 Active 2016 Not Available [facility] 3 18:21:03 Mixed anxiety and depressive disorder 131117907 Active 2016 Not Available [facility] 3 18:21:03 Disturbanc e of attention 99834032 Active 2016 Not Available [facility] 3 18:21:03 Insomnia due to anxiety and fear 4889143769291 05 Active 2022 Shantelle Petersen NP [address] [employer], [place], [address] , [employer] [facility] [employer] 3 11:39:09 Fentanyl dependence 105755338 Active 2023 KEITH Masterson [address], [place], [address] , [employer] [facility] [employer] 4 14:58:40 Open wound of finger of right hand 9777715603721 9103 Active 2023 KEITH Masterson [address], [place], [address] , [facility] [employer] [facility] 4 14:59:49 Carpal tunnel syndrome of right wrist 5215764150624 08 Active [address] [facility], [facility] [address], [place], [address] , [facility] [employer] [facility] 4 15:14:44 Lumbago with sciatica 228125472 Active [address] [facility], [facility] [address], [place], [address] , [facility] [employer] 4 15:15:26 Problem Notes None recorded. Procedures Surgical History Date Name Laterality Status Provider Name and Address Organization Details Recorded Time Appendectomy completed Shantelle Carias RN [facility] 08/28/2023 11:14:24 Imaging Results None recorded. Procedure Notes None recorded. Medical Equipment None Reported. Allergies No known drug allergies Medications Name Sig Start Date Stop Date Status Note LastModified by Organization Details LastModified Time cyclobenzap rine 10 mg tablet 12/15 completed Not Available Not Available Not Available amoxicillin 500 mg capsule TAKE 1 CAPSULE BY MOUTH EVERY 8 HOURS UNTIL ALL TAKEN active Not Available Not Available No t Available buspirone 5 mg tablet 10/21 completed Not Available Not Available Not Available silver sulfadiazin e 1 % topical cream 08/28 completed Not Available Not Available Not Available clonidine HCl 0.1 mg tablet 12/28 completed Not Available Not Available Not Available ropinirole 1 mg tablet 08/28 completed Not Available Not Available Not Available clindamycin HCl 300 mg capsule TAKE 1 CAPSULE BY MOUTH EVERY 8 HOURS FOR 10 DAYS 08/28 completed Not Available Not Available Not Available trazodone 50 mg tablet Take 1 tablet every day by oral route. 12/15 completed Not Available Not Available Not Available azithromyci n 250 mg tablet 02/28 completed Not Available Not Available Not Available naltrexone 50 mg tablet active Not Available Not Available Not Available hydroxyzine pamoate 50 mg capsule 12/15 completed Not Available Not Available Not Available hydroxyzine HCl 50 mg tablet 05/24 completed Not Available Not Available Not Available doxepin 10 mg capsule 08/28 completed Not Available Not Available Not Available sulfamethox azole 800 mg-trimetho prim 160 mg tablet TAKE 1 TABLET BY MOUTH EVERY 12 HOURS 12/15 completed Not Available Not Available Not Available triamcinolo ne acetonide 0.1 % topical cream APPLY A THIN LAYER TO THE AFFECTED AREA(S) BY TOPICAL ROUTE 2 TIMES PER DAY active Not Available Not Available No t Available ketorolac 10 mg tablet 12/15 completed Not Available Not Available Not Available meloxicam 7.5 mg tablet TAKE 1 TABLET BY MOUTH TWICE DAILY NEEDED FOR PAIN / NUMBNESS active Not Available Not Available No t Available trazodone 100 mg tablet 12/28 completed Not Available Not Available Not Available hydrocodone 7.5 mg-acetamin ophen 325 mg tablet 10/21 completed Not Available Not Available Not Available cephalexin 500 mg capsule TAKE 1 CAPSULE BY MOUTH EVERY 8 HOURS FOR 1 WEEK 12/28 completed Not Available Not Available Not Available erythromyci n 5 mg/gram (0.5 %) eye ointment 10/21 completed Not Available Not Available Not Available mirtazapine 30 mg tablet active Not Available Not Available Not Available dexamethaso ne 4 mg tablet TAKE 1 TABLET BY MOUTH EVERY 12 HOURS 05/24 completed Not Available Not Available Not Available hydroxyzine HCl 25 mg tablet TAKE 1 TABLET BY MOUTH THREE TIMES DAILY 05/24 completed Not Available Not Available Not Available ibuprofen 600 mg tablet 10/21 completed Not Available Not Available Not Available methylpredn isolone 4 mg tablets in a dose pack FOLLOW PACKAGE DIRECTION S active Not Available Not Available No t Available ondansetron 4 mg disintegrat ing tablet 12/15 completed Not Available Not Available Not Available SF 5000 Plus 1.1 % dental cream 10/21 completed Not Available Not Available Not Available dicyclomine 10 mg capsule 08/28 completed Not Available Not Available Not Available naproxen 500 mg tablet TAKE 1 TABLET BY MOUTH TWICE DAILY NEEDED FOR PAIN 08/28 completed Not Available Not Available Not Available amoxicillin 875 mg-potassiu m clavulanate 125 mg tablet TAKE 1 TABLET BY MOUTH EVERY 12 HOURS UNTIL ALL TAKEN 05/24 completed Not Available Not Available Not Available buprenorphi ne 8 mg-naloxone 2 mg sublingual tablet 12/28 completed Not Available Not Available Not Available cyclobenzap rine 5 mg tablet TAKE 1 TABLET BY MOUTH THREE TIMES DAILY NEEDED FOR MUSCLE SPASM active Not Available Not Available No t Available methadone 45 mg 08/28 completed Not Available Not Available Not Available quetiapine 50 mg tablet TK 1 TO 2 TS PO QHS 10/21 completed Not Available Not Available Not Available buprenorphi ne 8 mg-naloxone 2 mg sublingual film USE 1 FILM SUBLINGUA LLY D active Not Available Not Available No t Available naloxone 4 mg/actuatio n nasal spray 05/24 completed Not Available Not Available Not Available Vitals Date Recorded Body height Body mass index (BMI) Body weight Body temperature Heart rate Respiratory rate Oxygen saturation Oxygen saturation in Arterial blood by Pulse oximetry Systolic And Diastolic Provider Name and Address Organization Details Last Updated DateTime 4 165.1 cm 21.9 kg/m2 51972.0 5 g 96.7 [degF] 106 /min 20 /min 97.99 % 97.99 % 150/100 mm[Hg] Shantelle Carias RN [facility] 4 14:35:47 Date Recorded Body height Body mass index (BMI) Body weight Body temperature Heart rate Respiratory rate Oxygen saturation Oxygen saturation in Arterial blood by Pulse oximetry Systolic And Diastolic Provider Name and Address Organization Details Last Updated DateTime 4 165.1 cm 21.7 kg/m2 71059.4 6 g 98.1 [degF] 83 /min 20 /min 94 % 94 % 118/68 mm[Hg] Shantelle Carias RN [facility] [employer] [facility] 4 15:06:59 Date Recorded Body weight Body mass index (BMI) Body height Body temperature Respiratory rate Heart rate Oxygen saturation Oxygen saturation in Arterial blood by Pulse oximetry Systolic And Diastolic Provider Name and Address Organization Details Last Updated DateTime 3 51306.9 2 g 21.4 kg/m2 165.1 cm 96.4 [degF] 16 /min 77 /min 94 % 94 % 130/80 mm[Hg] Shantelle Carias RN [facility] [employer] [facility] 3 11:14:10 Social History Question Answer Notes LastModified by Organization Details LastModified Time Tobacco Smoking Status Current Every Day Smoker Shantelle Carias RN [facility], [facility] [employer] [facility] 08/28/2023 11:15:53 Do You Have An Advance Directive? No Information not available 08/28/2023 Is Blood Transfusion Acceptable In An Emergency? Yes Information not available 08/28/2023 What Is Your Level Of Caffeine Consumption? Moderate Coffee In AM Information not available 08/28/2023 What Is Your Code Status? Full Code Information not available 08/28/2023 In The 14 Days Before Symptom Onset, Have You Had Close Contact With A Laboratory-confi rmed COVID-19 While That Case Was Ill? No Information not available 08/28/2023 In The 14 Days Before Symptom Onset, Have You Had Close Contact With A Person Who Is Under Investigation For COVID-19 While That Person Was Ill? No Information not available 08/28/2023 What Type Of Diet Are You Following? REGULAR Information not available 08/28/2023 Which Illicit Or Recreational Drugs Have You Used? MJ Information not available 12/29/2023 How Many Days Of Moderate To Strenuous Exercise, Like A Brisk Walk, Did You Do In The Last 7 Days? 2 Information not available 08/28/2023 On Those Days That You Engage In Moderate To Strenuous Exercise, How Many Minutes, On Average, Do You Exercise? 120 Information not available 08/28/2023 Have There Been Any Changes To Your Family Or Social Situation? Yes Moving Mom, Dad Moving To [facility] Information not available 08/28/2023 Are There Any Guns Present In Your Home? No Information not available 08/28/2023 Do You Use Insect Repellent Routinely? No Information not available 08/28/2023 Where [facility] You Live? [facility] Information not available 08/28/2023 Do You Have A Medical Power Of Metallurgical Lab Technician? No Information not available 08/28/2023 How Many Children Do You Have? 1 Information not available 08/28/2023 Do You Have Any Pets? Yes Information not available 08/28/2023 What Is Your Relationship Status? Single Information not available 08/28/2023 Do You Use Your Seat Belt Or Car Seat Routinely? Yes Information not available 08/28/2023 Do You Have Smoke And Carbon Monoxide Detectors In Your Home? Yes Information not available 08/28/2023 At What Age Did You Start Smoking Tobacco? 16 Information not available 08/28/2023 Are There Any Smokers In Your House? Yes Information not available 08/28/2023 How Much Tobacco Do You Smoke? 1 PPD Information not available 08/28/2023 Do You Participate In Social Media? No Information not available 12/29/2023 What Types Of Sporting Activities Do You Participate In? Boxing Information not available 08/28/2023 Do You Use Sunscreen Routinely? No Information not available 08/28/2023 How Many Years Have You Smoked Tobacco? 16 Information not available 12/29/2023 Have You Recently Traveled Abroad? No Information not available 08/28/2023 Have You Used IV Drugs? No Information not available 12/29/2023 Sex: Unknown Functional Status Question Answer Note LastModified by Organizat ion Details LastModified Time Do you use any illicit or recreational drugs? Yes use to do Fentynal Information not available 12/29/2023 Do you or have you ever used any other forms of tobacco or nicotine? No Information not available 08/28/2023 What is your level of alcohol consumption? None Information not available 08/28/2023 Are you currently employed? No Information not available 05/24/2024 What is your exercise level? Occasional Information not available 08/28/2023 Mental Status Question Answer Note LastModified by Organization D etails LastModified Time Do you feel stressed (tense, restless, nervous, or anxious, or unable to sleep at night)? [id number] Information not available 05/24/2024 Family History Relationship Description Onset Age of this Age Resolved Age Notes LastModified by Organization Details LastModified Time Father No current problems or disability Not available 08/28 11:14:14 Mother No current problems or disability Not available 08/28 11:14:14 Medical History Condition Response ADDICTION CONCERNS Y ANXIETY DISORDER Y HISTORY OF DRUG ABUSE Y HYPERTENSION Y Immunizations Vaccine Type Date Status Note Provider Nam e and Address Organization Details Recorded Time Tdap 02/12/2016 completed Not Available [facility] 12/11/2022 18:22:14 Tdap 08/28/2023 completed Shantelle Petersen NP [address] [facility], [facility] [address], [place], [address], [facility] 08/28/2023 11:54:10 Past Encounters Encounter ID Performer Location Encounter Start Date Encounter Closed Date Diagnosis/Indication Diagnosis SNOMED-CT Code Diagnosis ICD10 Code Diagnosis Note [id number] Shantelle Petersen NP [address] [address] 08/28/2023 10:53:17 08/28/2023 12:02:28 Anemia screening 254112005 Z13.0 Diabetes m ellitus screening 270925111 Z13.1 Thyroid di sorder screening 643832250 Z13.29 Hyperlipid emia screening 535832797 Z13.220 Administra tion of diphtheria, pertussis, and tetanus vaccine 006270875 Z23 Insomnia d ue to anxiety and fear 6945793458 35015 F51.05 Anxiety- mind racing not allowing him to sleep at night.No SI/HI [id number] Alex Castanon MD [address] [address] 12/29/2023 14:28:14 12/29/2023 15:18:19 Open wound of finger of right hand 2952800346 6369642 S61.200S Patient advised to review current abx script and call in Fentanyl dependence 4260 64631 F11.20 Insomnia 307587752 G47.0 0 [id number] Alex Castanon MD [address] [address] 05/24/2024 14:56:04 05/24/2024 15:30:24 Carpal tunnel syndrome of right wrist 3831963045 63491 G56.01 Lumbago with sciatica 20 1913796 M54.41 Advised to continue ice, heat, rest.Compl ete prescribed steroid pack, utilize meloxicam PRN when completed Health Concerns Section Related Observation LastModified by Organization Detai ls LastModified Time None Recorded Concern Status LastModified by Organization Details LastModified Time None Recorded Advance Directives Directive N: Payers Encounter Date Sequence Insurance Name Policy Number Policy Sharma Covered Member ID Sharma Member ID Guarantor Name 08/28/2023 1 [facility] (MEDICAID REPLACEMENT - [facility] [id number] Lucius Pascal [id number] Lucius Pascal 12/29/2023 1 [facility] (MEDICAID REPLACEMENT - [facility]) [id number] Lucius Pascal [id number] Lucius Adan Pascal 05/24/2024 1 [facility] (MEDICAID REPLACEMENT - O) [id number] Lucius Pascal [id number] Lucius W Gwyn Notes Date Note Type Note Provider Name and Address Organization Details Recorded Time 08/28/2023 text/html Here for new patient appt. Wants check up.Having trouble sleeping. Hard to stay asleep and falling asleep takes 1 hr. No snoring. GF told him he tosses and turns at night. Denies excess caffeine and states he drinks an average of 12 ounce coffee daily in the morning. +Nicotine use 1 ppd. Tobacco use- 1 ppd. Would love to quit, but others in home smoke too. No energy drinks. Shantelle Petersen NP [address] [facility], [facility] [address], [place], [address], [facility] 08/28/2023 11:55:52 12/29/2023 text/html Lucius is here today to follow up on an injury to his finger. He injury his finger in a car engine and had sutures placed at [facility]. The sutures have been removed. He had been using fentanyl for approximately eight years and has been clean for two days. He denies symptoms of withdrawal but would like assitance with recovery. KEITH Masterson [address], [place], [address], [employer] [facility] [employer] [facility] 12/29/2023 15:12:39 05/24/2024 text/html Lucius Pascal 2 weeks ago fell asleep with left leg and right leg dangling off the bed. Woke up with numbness along the sciatic nerve and lateral side of right forearm, radiating to thumb, index, and middle finger. States now has pressure and limited ROM in the right foot. Foot drop present on ambulation, will also send referral to neuro KEITH Masterson [address], [place], [address], [employer] [facility] [employer] [facility] 05/24/2024 15:23:49
--- OUTSIDE RECORDS SUMMARY | 2025-03-08 16:35 | XMS_ITS | Continuity of Care Document ---
Author Organization [facility] Address [address] [facility] [address] [place] [address] Phone Care Team Providers Care Land Acquisition Manager Name Role Phone Josseline Beatty Unavailable Unavailable Advance Directives Directive Yes / No Effective Date File Name No Information Encounters Encounter Description Practice Location Reason(s) For Visit Diagnoses Date Provider Providers Copied on Encounter [facility], [address], [place], [place], [id number], [place] tel:[phone] [facility]3] No Information [address] , [address], [place], [address], [place]. tel:[phone] Family History Family Member Type Diagnosis Age At Onset No Information Payers Payer name Insurance type Covered alliance party ID Authoriza tion(s) No Information Social [...]
[2025-03-08 16:38] VITALS: BP 116/71; PULSE 99; RESP 16; TEMP 36.9; O2SAT 98
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
== END 2025-03-08 17:42 | disposition home or self-care (01) ==
PROVIDERS: Emergency Provider Registered Nurse
DX: M54.16 Radiculopathy, lumbar region (principal); M54.31 Sciatica, right side; V44.5XXA Car driver injured in collision with heavy transport vehicle or bus in traffic accident, initial encounter; F17.210 Nicotine dependence, cigarettes, uncomplicated
CPT/HCPCS: 72050; 72110; 99213; G0463

== ENCOUNTER 2025-09-10 23:24 | Emergency (ER) | payer BC, SELFPAY ==
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
[2025-09-10 23:31] VITALS: BP 142/91; PULSE 81; RESP 16; TEMP 36.9; O2SAT 98
--- OUTSIDE RECORDS SUMMARY | 2025-09-10 23:31 | XMS_ITS | Clinical Summary ---
Author Organization [facility] Address [address] [place] [address] Phone Care Team Providers Care Top Dyeing Machine Loader Name Role Phone Shantelle Petersen ROHAN, JAMAR [...] on file Legal Sex Male 4:01 PM CONTINUOUS IMPROVEMENT COORDINATOR Gender Identity Not on file Sexual Orientation Not on file Last Filed Vital Signs Vital Sign Reading Time Taken Comments Blood Pressure 114/61 09/23/2023 8:00 AM CONTINUOUS IMPROVEMENT COORDINATOR Pulse 68 09/23/2023 8:00 AM CONTINUOUS IMPROVEMENT COORDINATOR Temperature 36.1 C (97 F) 09/23/2023 8:00 AM CONTINUOUS IMPROVEMENT COORDINATOR Respiratory Rate 20 09/23/2023 8:00 AM CONTINUOUS IMPROVEMENT COORDINATOR Oxygen Saturation 98% 09/23/2023 8:00 AM CONTINUOUS IMPROVEMENT COORDINATOR Inhaled Oxygen Concentration - - Weight 59 kg (130 lb) 09/22/2023 4:31 PM CONTINUOUS IMPROVEMENT COORDINATOR Height 165.1 cm (5' 5) 09/22/2023 4:31 PM CONTINUOUS IMPROVEMENT COORDINATOR Body Mass Index 21.63 09/22/2023 4:31 PM CONTINUOUS IMPROVEMENT COORDINATOR Plan of Treatment Not on file Insurance MEDICAID BLUE CROSS [place] Advance Directives * Full Code (Latest Code Status on File) Date Activated Date Inactivated Comments 09/23/2023 4:35 PM 09/23/2023 6:41 PM CPR-Full T reatment: FULL ARREST: Attempt Resuscitation/CPR wit intubation and mechanical ventilation. PRE-ARREST: Use entire range of life support measures to stabilize the patient. Care Teams Top Dyeing Machine Loader Relationship Specialty Start Date End Date Shantelle Petersen, DRY COLOR TESTER, COAL HIKER [address] [place] [id number] PCP - General Certified Nurse Practitioner 09/23/23
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
--- OUTSIDE RECORDS SUMMARY | 2025-09-10 23:32 | XMS_ITS | Clinical Summary ---
Author Organization [facility] Address [address] [place] [address] Care Team Providers Care Charter Driver Name Role Phone Shantelle Petersen NP Primary [...] on file Legal Sex Male 9:36 PM MEDICATION AID Gender Identity Not on file Sexual Orientation [...] <65 (1 of 2 - PCV) 2013 HPV Vaccines (1 - 3-dose SCD M series) 2021 Covid-19 Vaccine (3 - 2024-2 6 season) 2025 2021, 04/01/2021 Influenza Vaccine (#1) 2025 DTaP/Tdap/Td Vaccine (9 - Td or Tdap) 07/29/2032 07/29/2022, 02/12/2016, 07/05/2008, Additional history exists Hepatitis B Screening Completed 05/23/1995 , 1994, 1994 Insurance [facility] Care Teams Charter Driver Relationship Specialty Start Date End Date Shantelle Petersen NP PCP - General Nurse Practitioner 10/01/23
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
--- NOTE | 2025-09-10 23:44 | ED.GENADULT ---
HPI - General Adult General Chief complaint: Unspecified Stated complaint: Insomnia Time Seen by Provider: 09/10/25 23:27 History of Present Illness HPI narrative: Reportedly patient here for insomnia. I did check his room several times within 15 min of his arrival and he is not there. Related Data Home Medications ?Medication ?Instructions ?Recorded ?Confirmed ?Last Taken ?Type buprenorphine 8 mg-naloxone 2 mg 1 film DIRECTED 08/24/24 08/24/24 Unknown History sublingual film Allergies Allergy/AdvReac Type Severity Reaction Status Date / Time cat dander Allergy Mild puffy eyes Verified 09/10/25 23:25 [facility] Past Medical History Medical History (Updated 09/10/25 @ 23:53 by Caroline Melendez MD) History of dental problems Fracture of thumb, right, closed Back pain with right-sided sciatica History of narcotic use History of ETOH abuse Surgical History Surgical History Hx of appendectomy Family History Family History Other No significant family history Social History Social History Smoking packs per day: 0.5 Smoking cigarettes per day: 10.0 Years smoked: 9 Smoking pack-years: 4.50 Smoking status: Current every day smoker Tobacco type: cigarettes Alcohol intake: current Alcohol use details: social Substance use: former Substance use type: former substance user and heroin Last use: on Suboxone reports clean over 2 years with one relapse last year Living arrangements: with family Gender identity (if verbalized by the patient): Male Course Vital Signs Vital signs: Vital Signs Temperature 98.4 F 09/10/25 23:31 Pulse Rate 81 09/10/25 23:31 Respiratory Rate 16 09/10/25 23:31 Blood Pressure 142/91 H 09/10/25 23:31 Pulse Oximetry 98 09/10/25 23:31 Oxygen Delivery Room Air 09/10/25 23:31 Temperature 98.4 F 09/10/25 23:31 Pulse Rate 81 09/10/25 23:31 Respiratory Rate 16 09/10/25 23:31 Blood Pressure 142/91 H 09/10/25 23:31 Pulse Oximetry 98 09/10/25 23:31 Oxygen Delivery Room Air 09/10/25 23:31 Medical Decision Making Vital Signs Vital Signs: Vital Signs Temperature 98.4 F 09/10/25 23:31 Pulse Rate 81 09/10/25 23:31 Respiratory Rate 16 09/10/25 23:31 Blood Pressure 142/91 H 09/10/25 23:31 Pulse Oximetry 98 09/10/25 23:31 Oxygen Delivery Room Air 09/10/25 23:31 Temperature 98.4 F 09/10/25 23:31 Pulse Rate 81 09/10/25 23:31 Respiratory Rate 16 09/10/25 23:31 Blood Pressure 142/91 H 09/10/25 23:31 Pulse Oximetry 98 09/10/25 23:31 Oxygen Delivery Room Air 09/10/25 23:31 Discharge Plan Discharge Clinical Impression: Insomnia Patient Disposition: Left Without Being Seen Patient Language: Kinyarwanda Prescriptions: No Action prednisone 20 mg tablet 20 mg PO BID Qty: 10 0RF Rx Instructions: take with food buprenorphine-naloxone 8-2 mg film 1 film DIRECTED Follow-up/Referrals: PHYSICIAN NOT ON STAFF,NONSTAFF [Primary Care Provider]
== END 2025-09-11 00:10 | disposition left against medical advice (07) ==
PROVIDERS: Emergency Provider Emergency Medicine
DX: G47.00 Insomnia, unspecified (principal)
CPT/HCPCS: 99199